=== PATIENT | female | born 1985 | race Caucasian/White ===

== ENCOUNTER 2022-05-01 19:27 | Inpatient (IN) | payer BC, OTHER ==
[~2022-05-01] VITALS: Ht 154.9 cm; Wt 68.9 kg
[2022-05-01] MEDS ORDERED: VANCOMYCIN IV 1,000 MG in IV DEXTROSE 5% 250 ML IV ONE (19:45)
[2022-05-01] MEDS ORDERED: PIPERACILLIN SODIUM/TAZOBACTAM 3.375 G in IV DEXTROSE 5% 50 ML IV ONE (19:45)
[2022-05-01] MEDS ORDERED: IV NORMAL SALINE 1000 ML BAG IV ONE (19:45)
[2022-05-01] MEDS ORDERED: PIPERACILLIN/TAZOBACTAM/D5W 50 ML IV ONE (22:07)
[2022-05-01] MEDS ORDERED: VANCOMYCIN IV 200 ML ONE (22:07)
[2022-05-01 23:59] LABS: HEMATOCRIT 53.3 % (31.2-41.9); MEAN CORPUSCULAR HEMOGLOBIN 30.3 uug (24.7-32.8); MEAN CORPUSCULAR VOLUME 90.3 fL (75.5-95.3); PLATELET COUNT (AUTO) 211 K/uL (179-408)
[2022-05-02 00:07] LABS: ALANINE AMINOTRANSFERASE 77 U/L (14-59); ALKALINE PHOSPHATASE 113 U/L (50-136); ASPARTATE AMINOTRANSFERASE 78 U/L (15-37); BILIRUBIN,DIRECT 0.4 mg/dL (0.0-0.2); BILIRUBIN,TOTAL 0.9 mg/dL (0.2-1.0); CARBON DIOXIDE 32 mmol/L (21-32); CHLORIDE 93 mmol/L (98-107); CREATININE 1.6 mg/dL (0.6-1.3); TOTAL PROTEIN, SERUM 8.8 g/dL (6.4-8.2); UREA NITROGEN, BLOOD 41 mg/dL (7-18)
[2022-05-02 00:08] LABS: GLUCOSE 332 mg/dL (74-106); POTASSIUM 2.4 mmol/L (3.5-5.1)
[2022-05-02 01:38] LABS: *BILIRUBIN,URIN 1+ (NEGATIVE); *BLOOD, URINE NEGATIVE (NEGATIVE); *CLARITY,URINE CLEAR (CLEAR); *COLOR,URINE YELLOW (YELLOW); *KETONES,URINE TRACE (NEGATIVE); LEUKOCYTE ESTERASE ,URINE TRACE (NEGATIVE); NITRITE, URINE NEGATIVE (NEGATIVE); PH,URINE 8.5 (5.0-8.0); UGLUCOSE NEGATIVE (NEGATIVE)
[2022-05-02] MEDS ORDERED: IV NS 1000 ML 1,000 ML IV ONE ×3 (02:45→12:45)
[2022-05-02] MEDS ORDERED: IV NS 1000 ML 1,000 ML IV PRN (03:00)
[2022-05-02] MEDS ORDERED: MAGNESIUM HYDROXIDE 30 ML LIQUID UDC PO PRN (03:00)
[2022-05-02] MEDS ORDERED: POTASSIUM CHLORIDE 50 ML ONE ×4 (03:06→04:55)
[2022-05-02 03:29] LABS: BACTERIA,URINE MANY /HPF (NONE SEEN); RBC,URINE 0-3 /HPF (0-3); SQUAMOUS EPITHELIAL CELL,UR FEW /HPF (NONE SEEN)
[2022-05-02] MEDS: POTASSIUM CHLORIDE 50 ML IV SCH ×6 (03:43→11:56)
[2022-05-02] MEDS ORDERED: PIPERACILLIN SODIUM/TAZOBACTAM 3.375 G in IV DEXTROSE 5% 50 ML IV SCH (06:00)
[2022-05-02] MEDS ORDERED: PIPERACILLIN/TAZOBACTAM/D5W 50 ML IV ONE ×2 (06:51→10:55)
--- NOTE | 2022-05-02 07:11 | NUR ---
PT IS IN ROOM #2B. DR MÁRQUEZ EVALUATED THE PT. REPORT WAS RECEIVED FROM SIZER MACHINE RN ZHOU. CONTINUE TO MONITOR THE PT.
--- NOTE | 2022-05-02 08:27 | NUR ---
Castillo thurman in [place] - 05/02/22 at 0830 by BERNADINE Gave pt's parents RX and d/c instructions & school note, mother verbalized understanding.
[2022-05-02] MEDS ORDERED: PANTOPRAZOLE SODIUM 40 MG VIAL IV SCH (09:00)
[2022-05-02 09:10] LABS: HEMATOCRIT 43.1 % (31.2-41.9); MEAN CORPUSCULAR HEMOGLOBIN 30.4 uug (24.7-32.8); MEAN CORPUSCULAR VOLUME 90.2 fL (75.5-95.3); PLATELET COUNT (AUTO) 130 K/uL (179-408)
[2022-05-02 09:35] LABS: CREATININE 1.5 mg/dL (0.6-1.3); PHOSPHOROUS 1.2 mg/dL (2.5-4.9)
[2022-05-02] MEDS ORDERED: ACETAMINOPHEN 325 MG TABLET ONE ×2 (10:02→18:31)
[2022-05-02] MEDS ORDERED: PANTOPRAZOLE SODIUM 40 MG VIAL ONE (10:03)
[2022-05-02 10:10] LABS: *URINE HCG, QUAL NEG (NEGATIVE)
[2022-05-02 10:14] LABS: POTASSIUM 2.3 mmol/L (3.5-5.1)
[2022-05-02] MEDS: ACETAMINOPHEN 325 MG TABLET PO PRN (10:23)
--- NOTE | 2022-05-02 10:31 | NUR ---
DR VERÓNICA Lozada EVALUATED THE PT.
[2022-05-02] MEDS ORDERED: POTASSIUM CHLORIDE 20 MEQ POWDER PACKET ONE (10:53)
[2022-05-02] MEDS ORDERED: POTASSIUM CHLORIDE 100 ML ONE (10:54)
[2022-05-02] MEDS ORDERED: HEPARIN SODIUM,PORCINE 5,000 UNITS/ML VIAL ONE (10:54)
[2022-05-02] MEDS ORDERED: VANCOMYCIN IV 200 ML ONE (10:55)
[2022-05-02] MEDS ORDERED: HEPARIN SODIUM,PORCINE 5,000 UNITS/ML VIAL SQ SCH (11:00)
[2022-05-02] MEDS ORDERED: POTASSIUM CHLORIDE 20 MEQ POWDER PACKET GT ONE (11:00)
[2022-05-02] MEDS: PIPERACILLIN SODIUM/TAZOBACTAM 3.375 G in IV DEXTROSE 5% 50 ML IV SCH ×2 (12:00→18:13)
[2022-05-02] MEDS: VANCOMYCIN IV 1,000 MG in IV DEXTROSE 5% 250 ML IV SCH (12:00)
[2022-05-02] MEDS ORDERED: NOREPINEPHRINE BITARTRATE 8 MG in IV NORMAL SALINE 242 ML IV PRN (12:45)
[2022-05-02] MEDS ORDERED: CRAN425C6 GT (14:26)
[2022-05-02] MEDS ORDERED: ZINC220T3 GT (14:26)
[2022-05-02] MEDS ORDERED: APIX2.5T GT (14:26)
[2022-05-02] MEDS ORDERED: OMEP20CA15 GT (14:26)
[2022-05-02] MEDS ORDERED: CLON0.3P TD (14:26)
[2022-05-02] MEDS ORDERED: DOCU100C36 GT (14:26)
[2022-05-02] MEDS ORDERED: LEVE100S GT (14:26)
[2022-05-02] MEDS ORDERED: AMAN50SY GT (14:26)
[2022-05-02] MEDS ORDERED: ASCO-375 GT (14:26)
[2022-05-02] MEDS ORDERED: AMIN30LI2 GT (14:26)
[2022-05-02] MEDS ORDERED: METO50TA16 GT (14:26)
[2022-05-02] MEDS ORDERED: PHEN64.8 GT (14:26)
[2022-05-02] MEDS ORDERED: NA P133E RC (14:26)
[2022-05-02] MEDS ORDERED: BROM5CAP3 GT (14:26)
[2022-05-02] MEDS ORDERED: BACL10TA GT (14:26)
[2022-05-02] MEDS ORDERED: ACET-2154 GT (14:26)
[2022-05-02] MEDS ORDERED: ARGI1POW17 GT (14:26)
[2022-05-02] MEDS ORDERED: IPRA0.2S6 NEB (14:26)
[2022-05-02] MEDS ORDERED: FLUO10CA26 GT (14:26)
[2022-05-02] MEDS ORDERED: BISA10SU61 RC (14:26)
[2022-05-02] MEDS ORDERED: TRAM50TA2 GT (14:26)
[2022-05-02] MEDS ORDERED: ACET-2605 GT (14:26)
[2022-05-02] MEDS ORDERED: MULT-213 GT (14:26)
[2022-05-02] MEDS ORDERED: ALBU2.5V7 NEB (14:26)
[2022-05-02] MEDS ORDERED: APIXABAN 2.5 MG TABLET GT SCH (17:00)
[2022-05-02] MEDS ORDERED: BROMOCRIPTINE 5 MG PO SCH (17:00)
[2022-05-02] MEDS ORDERED: AMANTADINE HCL GT SCH (17:00)
[2022-05-02] MEDS ORDERED: BROMOCRIPTINE MESYLATE 5 MG GT SCH (17:00)
[2022-05-02] MEDS ORDERED: [UNRECOGNIZED DRUG - OTHER] PO SCH (17:00)
[2022-05-02] MEDS ORDERED: SODIUM PHOSPHATE MM 15 MMOL in IV NORMAL SALINE 250 ML IV ONE (17:00)
[2022-05-02] MEDS ORDERED: levETIRAcetam 500 MG/5 ML LIQUID UDC ONE (17:14)
[2022-05-02] MEDS: PANTOPRAZOLE ORAL SUSPENSION 40 MG SUSPDR.PKT GT SCH (17:23)
[2022-05-02] MEDS: levETIRAcetam 500 MG/5 ML LIQUID UDC GT SCH (17:23)
[2022-05-02] MEDS ORDERED: ONDANSETRON 4 MG/2 ML VIAL ONE (18:32)
[2022-05-02] MEDS ORDERED: MORPHINE SULFATE 4 MG/1 ML DISP.SYRIN ONE (18:34)
--- NOTE | 2022-05-02 19:00 | NUR ---
Received report from TEDDY Patten. Pt. in bed, eyes open.
[2022-05-02] MEDS: ONDANSETRON 4 MG/2 ML VIAL IV PRN (19:25)
[2022-05-02] MEDS ORDERED: PHENOBARBITAL 32.4 MG TABLET ONE (20:18)
[2022-05-02] MEDS ORDERED: DOCUSATE SODIUM 100 MG CAPSULE PO ONE (20:18)
[2022-05-02] MEDS ORDERED: BACLOFEN 10 MG TABLET ONE (20:18)
[2022-05-02] MEDS ORDERED: PHENOBARBITAL 32.4 MG TABLET PO SCH (21:00)
[2022-05-02] MEDS ORDERED: DOCUSATE SODIUM 100 MG CAPSULE PO SCH (21:00)
[2022-05-02] MEDS: BACLOFEN 10 MG TABLET GT SCH (21:04)
--- NOTE | 2022-05-02 21:14 | NUR ---
noted 78/53, titrated from 0.2 mcg/kg/min. to 0.3mcg/kg/min. bp is now 99/52
[2022-05-02] MEDS ORDERED: NOREPINEPHRINE BITARTRATE 4 MG/4 ML VIAL IV ONE (22:23)
--- NOTE | 2022-05-02 22:28 | NUR ---
Reposition pt., noted 600 ml of urine from F/C
[2022-05-03] VITALS (40 sets, daily range): BP systolic 48–276; BP diastolic 20–109
--- NOTE | 2022-05-03 00:05 | NUR ---
[id number]--RECEIVED PT NEW ADMIT FROM ER. PT ARRIVED VIA GUERNEY. PT IS [id number] EYES AND TRACKS OCCASS. BUT DOESN'T FOLLOW SIMPLE COMMDS. PT IS CONTRACTED IN UPPER AND LOWER EXTREMETIES. SKIN IS FLUSHED PINK COLOR AND VERY WM. PT HAS TEMP OF 104F AX AND 106F RECTAL. TYLENOL AND COOLING SAIGE. DONE. PEPE NARAYANAN CONTACTED AND INFORMED-ORDERED BCX2. PT ALSO HAS TRACH TO COOL AEROSOL MIST AT 60%. STAT ABG DONE. HCO3 IS 14. ORACIO CANTU INFORMED. NO NEW ORDERS. RESPS ARE REG/SLIGHT LABORED AT TIMES WITH RR OF 32. RTX DEMAR AT BEDSIDE. PT RADHA SX WELL ALSO. ORAL CARE GIVEN. BATH AND LINEN CHANGE DONE. PT ENDORSED TO DAY SHIFT TEDDY REGALADO THAT PT NEEDS A WOUND CONSULT DUE TO STG 1 DECUB IN SACRAL AREA AND DTI OF LEFT FOOT. PT HAS RIGHT ARM ML AND RIGHT FEMORAL TLC. PT IS ON LEVOPHED AT O.1MCG. PT INITIALLY WAS 60'S TO 80'S SYST. BP GRADUALLY INC TO 90-110 SYST. PT ALSO GIVEN 1LITER NS FL. BOLUS-ORD BY ORACIO CANTU. PT HAS F/C-U/O ADEQ. 900CC OUT-GAYE/CLR.PT HAD SMALL BRN DIARRHEA STOOL X1. PT ALSO HAS GT I/P-CLAMPED. FLUSHES WELL. PT ALSO HAS BEEN IN S.TACH WITH HR UP TO 148. ORACIO CANTU INFORMED. PT'S TEMP AT 0400 IS 103F. COOLING SAIGE. CONT. PT CONT. IN GUARDED COND. PT ENDORSED TO TEDDY REGALADO. JAYSON ESPINAL
--- NOTE | 2022-05-03 00:10 | NUR ---
Endorsed and tranfsferred pt to CCU, TEDDY Arroyo taking over. Transported pt with RT. TONYS
[2022-05-03] MEDS: ACETAMINOPHEN 325 MG TABLET PO PRN ×3 (00:30→05:30)
[2022-05-03] MEDS ORDERED: IV NS 1000 ML 1,000 ML IV PRN (01:00)
[2022-05-03] MEDS ORDERED: POTASSIUM CHLORIDE 20 MEQ POWDER PACKET GT ONE (01:45)
[2022-05-03 01:53] LABS: ABG BASE EXCESS -7.6 mmol/L; ABG HCO3 14.3 mmol/L; ABG PCO2 21.1 mmHg (35.0-45.0); ABG PH 7.449 (7.350-7.450); ABG PO2 63.1 mmHg (75.0-100.0); ABG SITE RIGHT RADIAL; ABG TOTAL HEMOGLOBIN 12.8 G/dL (12.0-16.0); COHb 0.3 % (0.5-1.5); MetHb 0.4 % (0.0-1.5); O2Hb 93.5 % (94.0-97.0)
--- NOTE | 2022-05-03 03:34 | NUR ---
PATIENT ON CONT P/MIST @ 60% VIA T/PIECE; WITH ABG DONE IN CCU, SUCTION PRN, GOOD COUGH EFFORT. Humza BLAIRP Addendum: 05/03/22 at 0335 by ALTON CHA RT Amended: Links added.
[2022-05-03 05:31] LABS: HEMATOCRIT 37.1 % (31.2-41.9); MEAN CORPUSCULAR HEMOGLOBIN 30.3 uug (24.7-32.8); MEAN CORPUSCULAR VOLUME 90.2 fL (75.5-95.3); PLATELET COUNT (AUTO) 53 K/uL (179-408)
[2022-05-03] MEDS ORDERED: MAGNESIUM HYDROXIDE 30 ML LIQUID UDC GT PRN (05:46)
[2022-05-03 05:56] LABS: CREATININE 1.4 mg/dL (0.6-1.3); MAGNESIUM 1.5 mg/dL (1.8-2.4); PHOSPHOROUS 1.4 mg/dL (2.5-4.9)
[2022-05-03] MEDS: VANCOMYCIN IV 1,000 MG in IV DEXTROSE 5% 250 ML IV SCH ×2 (06:00→23:46)
[2022-05-03] MEDS: PIPERACILLIN SODIUM/TAZOBACTAM 3.375 G in IV DEXTROSE 5% 50 ML IV SCH ×3 (06:00)
[2022-05-03 06:13] LABS: POTASSIUM 2.3 mmol/L (3.5-5.1)
[2022-05-03 06:50] LABS: LYMPHOCYTES % (MANUAL) 28 % (20-40); MONOCYTES % (MANUAL) 4 % (2-10); NEUTROPHILS % (MANUAL) 68 % (42-75)
[2022-05-03] MEDS: MAGNESIUM SULFATE/D5W 100 ML IV SCH ×4 (07:45→11:30)
--- NOTE | 2022-05-03 07:45 | NUR ---
Received pt. with fever of 104.6 cooling measures will be implemented not due for tylenol yet as reported by registry nurse Dina Tylenol administered at 0400 this morning. tachycardia rate in the 130-140's.
[2022-05-03] MEDS: PROTEIN SUPPLEMENT (PROSTAT) 30 ML LIQUID PO SCH (08:00)
[2022-05-03] MEDS ORDERED: POTASSIUM PHOSPHATE MM 7.5 MMOL in IV NORMAL SALINE 97.5 ML IV ONE ×2 (08:00→13:00)
[2022-05-03] MEDS ORDERED: POTASSIUM CHLORIDE 40 MEQ in IV D5W 1000ML 1,000 ML IV PRN (08:30)
[2022-05-03] MEDS ORDERED: POTASSIUM PHOSPHATE MM 15 MMOL in IV NORMAL SALINE 250 ML IV ONE (08:30)
[2022-05-03] MEDS: BACLOFEN 10 MG TABLET GT SCH ×2 (09:00→20:22)
[2022-05-03] MEDS: MULTIVITAMINS,THERAPEUTIC TABLET GT SCH (09:00)
[2022-05-03] MEDS: ASCORBIC ACID 500 MG TABLET GT SCH (09:00)
[2022-05-03] MEDS: PANTOPRAZOLE ORAL SUSPENSION 40 MG SUSPDR.PKT GT SCH (09:00)
[2022-05-03] MEDS ORDERED: Medication Not On Formulary EA (Amino Acids/Protein Hydrolys (Pro-Stat Liquid) 30 ML) GT SCH (09:00)
[2022-05-03] MEDS: AMANTADINE HCL 100 MG CAPSULE GT SCH (09:00)
[2022-05-03] MEDS: ZINC SULFATE 220 MG CAPSULE GT SCH (09:00)
[2022-05-03] MEDS: levETIRAcetam 500 MG/5 ML LIQUID UDC GT SCH (09:00)
--- NOTE | 2022-05-03 09:00 | NUR ---
A call to attending Ramón to notified that G=t with massive leaking and pt. did not received G=t meds/
[2022-05-03] MEDS: POTASSIUM CHLORIDE 20 MEQ POWDER PACKET GT SCH ×2 (09:11→12:00)
[2022-05-03] MEDS: POTASSIUM CHLORIDE 50 ML IV SCH ×4 (09:11→12:55)
--- NOTE | 2022-05-03 10:36 | NUR ---
A call to attending to update her on pt's most current condition orders for 1 liter bolus and to change levophed drip for Neosynephrine drip. Received.
[2022-05-03] MEDS ORDERED: IV NS 1000 ML 1,000 ML IV ONE ×3 (10:45→11:30)
[2022-05-03] MEDS: PHENYLEPHRINE IV 100 MG in IV NORMAL SALINE 240 ML IV PRN ×2 (10:51→20:49)
[2022-05-03] MEDS: PANTOPRAZOLE SODIUM 40 MG VIAL IV SCH (11:30)
[2022-05-03] MEDS ORDERED: SODIUM BICARBONATE 8.4% 50 MEQ/50 ML DISP.SYRIN IV ONE ×2 (11:30→13:30)
[2022-05-03] MEDS ORDERED: SODIUM BICARBONATE 8.4% 100 MEQ in IV D5W 1000ML 1,000 ML IV PRN (12:00)
--- NOTE | 2022-05-03 12:15 | NUR ---
At this time patient placed on ventilator A/C 20, Tv 400 Peep +5 FIO2 100%.
--- NOTE | 2022-05-03 12:30 | NUR ---
Pt. not responding to to 2L NS bolus and maxed out on neosynephrine as ordered by attending orders to restart levophed at maximum dose received. Patient mottled with severe tachypnea. Attending notified and received orders to put pt. on ventilator A/C 20, tv400 Peep +5, and FIO2 100%. received. RT's at bedside.
[2022-05-03] MEDS: NOREPINEPHRINE BITARTRATE 32 MG in IV NORMAL SALINE 218 ML IV PRN (12:33)
[2022-05-03] MEDS: PROPOFOL 100 ML IV PRN ×3 (13:06→18:49)
--- NOTE | 2022-05-03 13:15 | NUR ---
Attending MS. Melgar in the unit to see and examine pt.
[2022-05-03 13:44] LABS: ABG BASE EXCESS -13.3 mmol/L; ABG HCO3 12.7 mmol/L; ABG PCO2 30.5 mmHg (35.0-45.0); ABG PH 7.239 (7.350-7.450); ABG PO2 58.9 mmHg (75.0-100.0); ABG SITE RIGHT BRACHIAL; ABG TOTAL HEMOGLOBIN 13.6 G/dL (12.0-16.0); COHb 0.1 % (0.5-1.5); MetHb 0.4 % (0.0-1.5); O2Hb 88.2 % (94.0-97.0); VENT MODE VENT - A/C; VT, ABG 400 mL
[2022-05-03] MEDS ORDERED: DIATR MEGLU/DIATRIZOATE SODIUM 30 ML BOTTLE ONE (13:52)
[2022-05-03] MEDS: MEROPENEM 1 G in IV NORMAL SALINE 100 ML IV SCH ×3 (13:52→23:46)
[2022-05-03] MEDS ORDERED: PIPERACILLIN SODIUM/TAZOBACTAM 3.375 G in IV DEXTROSE 5% 100 ML IV SCH (14:00)
[2022-05-03] MEDS ORDERED: MEROPENEM 0.5 G in IV NORMAL SALINE 50 ML IV SCH (14:00)
[2022-05-03 15:12] LABS: CREATININE 1.3 mg/dL (0.6-1.3); MAGNESIUM 3.3 mg/dL (1.8-2.4); PHOSPHOROUS 2.7 mg/dL (2.5-4.9); POTASSIUM 3.5 mmol/L (3.5-5.1); TOTAL PROTEIN, SERUM 5.4 g/dL (6.4-8.2)
--- NOTE | 2022-05-03 15:35 | NUR ---
A call from Mrs. Noah Bray requesting update from pt and requested to speak with attending. Attending Ramón Mack informed and provided with Mrs. Zamora contact information.
--- NOTE | 2022-05-03 16:18 | NUR ---
Environmental Remediation Specialist Ivone called and notified of Attendings orders. Consult social services aide to obtained updated DPOA. at this time Ivone was provided with pt's grandmother contact information Mrs. Noah Bray .
[2022-05-03] MEDS: DOCUSATE SODIUM 100 MG/10 ML LIQUID UDC GT SCH (20:21)
[2022-05-03] MEDS: PHENOBARBITAL 32.4 MG TABLET GT SCH (20:23)
[2022-05-04] VITALS (35 sets, daily range): BP systolic 42–135; BP diastolic 28–84
[2022-05-04] MEDS: PROPOFOL 100 ML IV PRN ×3 (01:07→13:26)
[2022-05-04] MEDS: ACETAMINOPHEN 325 MG TABLET GT PRN ×2 (03:51→22:28)
[2022-05-04] MEDS: NOREPINEPHRINE BITARTRATE 32 MG in IV NORMAL SALINE 218 ML IV PRN (04:01)
--- NOTE | 2022-05-04 04:07 | NUR ---
administered acetaminophen for fever (100.5F) abdominal skin is red and rash around umbilical reinforce abdominal dressing G-tube is leaking (green, bloody, brown liquid) continue to monitor her G-tube, VS signs (heart rate, temperature, blood pressure) Monitor signs and symptoms of respiratory distress Check the tracheotomy site
[2022-05-04 05:32] LABS: CREATININE 1.2 mg/dL (0.6-1.3); MAGNESIUM 2.7 mg/dL (1.8-2.4)
[2022-05-04 05:35] LABS: PHOSPHOROUS 0.9 mg/dL (2.5-4.9); POTASSIUM 2.5 mmol/L (3.5-5.1)
[2022-05-04 05:45] LABS: HEMATOCRIT 35.2 % (31.2-41.9); MEAN CORPUSCULAR HEMOGLOBIN 30.1 uug (24.7-32.8); MEAN CORPUSCULAR VOLUME 88.4 fL (75.5-95.3)
[2022-05-04 05:48] LABS: PLATELET COUNT (AUTO) 46 K/uL (179-408)
[2022-05-04] MEDS: POTASSIUM CHLORIDE 20 MEQ TAB.PRT.SR PO SCH ×2 (06:00→08:00)
[2022-05-04] MEDS: POTASSIUM CHLORIDE 50 ML IV SCH ×4 (06:46→10:17)
[2022-05-04] MEDS: MEROPENEM 1 G in IV NORMAL SALINE 100 ML IV SCH ×2 (06:48→22:29)
--- NOTE | 2022-05-04 07:30 | NUR ---
Received pt. this morning from shea [facility] as per report G-T medications were given last night despite G-t massive leaking with no improvement. Patient on monitor tech rate in the 140's150's. SBP sustained by levophed and neosynephrine. propofol at 50mcg/kg/min. remains febrile on/off. Remains on ventilator with no change in setting Portex 6 A/C 20 tv 400 FIO2 100% Peep +5. wounds remains the same no further complications. Will continue to monitor.
[2022-05-04] MEDS ORDERED: POTASSIUM PHOSPHATE MM 15 MMOL in IV NORMAL SALINE 250 ML IV ONE (08:00)
[2022-05-04] MEDS: PROTEIN SUPPLEMENT (PROSTAT) 30 ML LIQUID PO SCH (08:00)
[2022-05-04] MEDS: PHENYLEPHRINE IV 100 MG in IV NORMAL SALINE 240 ML IV PRN ×2 (08:03→16:24)
[2022-05-04] MEDS: PANTOPRAZOLE SODIUM 40 MG VIAL IV SCH (08:24)
[2022-05-04] MEDS: MUPIROCIN 2% OINT 22 GM TUBE NS SCH ×2 (08:26→22:31)
[2022-05-04 08:36] LABS: NEUTROPHILS % (MANUAL) 58 % (42-75)
[2022-05-04 08:37] LABS: EOSINOPHILS % (MANUAL) 1 % (0-8); LYMPHOCYTES % (MANUAL) 34 % (20-40); MONOCYTES % (MANUAL) 7 % (2-10)
[2022-05-04] MEDS: AMANTADINE HCL 100 MG CAPSULE GT SCH (09:00)
[2022-05-04] MEDS: MULTIVITAMINS,THERAPEUTIC TABLET GT SCH (09:00)
[2022-05-04] MEDS: ZINC SULFATE 220 MG CAPSULE GT SCH (09:00)
[2022-05-04] MEDS ORDERED: APIXABAN 2.5 MG TABLET GT SCH (09:00)
[2022-05-04] MEDS: ASCORBIC ACID 500 MG TABLET GT SCH (09:00)
[2022-05-04] MEDS: BACLOFEN 10 MG TABLET GT SCH ×3 (09:00→22:28)
--- NOTE | 2022-05-04 09:30 | NUR ---
Attending Lynn Mack in the unit to see and examine pt. report given and orders to continue with care plan received.
[2022-05-04] MEDS ORDERED: POTASSIUM PHOSPHATE MM 7.5 MMOL in IV NORMAL SALINE 97.5 ML IV ONE (10:00)
--- NOTE | 2022-05-04 10:01 | NUR ---
Pulmonary consult Dr. Adam in the unit Updated on pt's admission diagnosis and most updated condition by attending Lynn Melgar.
[2022-05-04] MEDS: ACETAMINOPHEN 650 MG SUPP.RECT RC PRN (12:11)
[2022-05-04] MEDS: VANCOMYCIN IV 1,000 MG in IV DEXTROSE 5% 250 ML IV SCH (14:03)
[2022-05-04 14:13] LABS: POTASSIUM 3.5 mmol/L (3.5-5.1)
[2022-05-04] MEDS: PHENOBARBITAL 32.4 MG TABLET GT SCH (22:27)
[2022-05-04] MEDS: DOCUSATE SODIUM 100 MG/10 ML LIQUID UDC GT SCH (22:27)
[2022-05-05] VITALS (32 sets, daily range): BP systolic 99–152; BP diastolic 43–98
[2022-05-05] MEDS: PROPOFOL 100 ML IV PRN ×3 (01:31→20:13)
--- NOTE | 2022-05-05 03:47 | NUR ---
PATIENT ON CONT REN VENT WITH TRACH PORTEX 6; IN PLACE AND SECURED, WITH CURRENT VENT SETTINGS, A/C 20, 400ML, PEEP5, FIO2 @ 100%, PT DOES BREATH RAPID AT TIMES, WITH HIGH HR 120, WITH TEMP, SUCTION BROWNISH TINGE SECRETIONS, AND SUCTION MOUTH WITH YANKAUER, NO VERBAL RESPONSE, DOES NOT FOLLOW ANY COMMANDS , NO VENT CHANGES MADE, ALL VENT ALARMS GOOD, VENT PLUGGED INTO RED WALL OUT LET , AMBU BAG AT BEDSIDE.Humza BLAIRP Addendum: 05/05/22 at 0351 by ALTON CHA RT Amended: Links added.
[2022-05-05] MEDS: VANCOMYCIN IV 1,000 MG in IV DEXTROSE 5% 250 ML IV SCH ×2 (05:00→22:25)
[2022-05-05] MEDS: MEROPENEM 1 G in IV NORMAL SALINE 100 ML IV SCH ×3 (05:00→22:28)
[2022-05-05 05:13] LABS: HEMATOCRIT 31.6 % (31.2-41.9); MEAN CORPUSCULAR HEMOGLOBIN 30.5 uug (24.7-32.8); MEAN CORPUSCULAR VOLUME 89.4 fL (75.5-95.3)
[2022-05-05 05:30] LABS: PLATELET COUNT (AUTO) 49 K/uL (179-408)
[2022-05-05 05:35] LABS: CREATININE 0.9 mg/dL (0.6-1.3); MAGNESIUM 2.2 mg/dL (1.8-2.4); PHOSPHOROUS 2.2 mg/dL (2.5-4.9); POTASSIUM 3.5 mmol/L (3.5-5.1)
[2022-05-05 05:44] LABS: BILIRUBIN,DIRECT 0.4 mg/dL (0.0-0.2); TOTAL PROTEIN, SERUM 4.8 g/dL (6.4-8.2)
--- NOTE | 2022-05-05 07:10 | NUR ---
Patient received on cont ward vent. Patient is trached with Portex 6. Trach is in place and secured via trach tie. Received on settings of AC RR 20, Vt 400, PEEP +5, 100% Fio2. Ventilator plugged in red outlets. Alarms on and audible. Ambubag bed side. PRN sxn provided. Will continue to monitor.
--- NOTE | 2022-05-05 07:20 | NUR ---
Received pt. on ventilator Portex #6, TV 400 A/C 20,FIO2 100%. Neuro-land semicomatose. eyes remain open to tracking. Hemodynamically Sinus tachycardia on neosyneprhine running at maximum in the 110-120's. G-t clumped. TLC patent Galdamez to gravity. Will continue to monitor.
[2022-05-05] MEDS: PROTEIN SUPPLEMENT (PROSTAT) 30 ML LIQUID PO SCH (08:00)
[2022-05-05] MEDS: BACLOFEN 10 MG TABLET GT SCH ×2 (08:44→22:24)
[2022-05-05] MEDS: AMANTADINE HCL 100 MG CAPSULE GT SCH (08:44)
[2022-05-05] MEDS: ASCORBIC ACID 500 MG TABLET GT SCH (08:45)
[2022-05-05] MEDS: ZINC SULFATE 220 MG CAPSULE GT SCH (08:45)
[2022-05-05] MEDS: MULTIVITAMINS,THERAPEUTIC TABLET GT SCH (08:45)
[2022-05-05] MEDS: PANTOPRAZOLE SODIUM 40 MG VIAL IV SCH (08:48)
[2022-05-05] MEDS: MUPIROCIN 2% OINT 22 GM TUBE NS SCH ×2 (08:49→21:00)
[2022-05-05 10:51] LABS: ABG BASE EXCESS -0.1 mmol/L; ABG HCO3 22.7 mmol/L; ABG PCO2 30.7 mmHg (35.0-45.0); ABG PH 7.486 (7.350-7.450); ABG PO2 69.6 mmHg (75.0-100.0); ABG SITE RIGHT BRACHIAL; ABG TOTAL HEMOGLOBIN 10.9 G/dL (12.0-16.0); COHb 0.3 % (0.5-1.5); MetHb 0.7 % (0.0-1.5); O2Hb 91.7 % (94.0-97.0); VENT MODE VENT - A/C; VT, ABG 400 mL
[2022-05-05 10:51] LABS: ABG BASE EXCESS -2.7 mmol/L; ABG HCO3 19.3 mmol/L; ABG PCO2 25.9 mmHg (35.0-45.0); ABG PO2 157.5 mmHg (75.0-100.0); ABG SITE RIGHT BRACHIAL; ABG TOTAL HEMOGLOBIN 12.3 G/dL (12.0-16.0); COHb 0.3 % (0.5-1.5); MetHb 0.4 % (0.0-1.5); O2Hb 98.1 % (94.0-97.0); VENT MODE VENT - A/C; VT, ABG 400 mL
--- NOTE | 2022-05-05 10:59 | NUR ---
Pulmonary serviced, Dr. Adam in the unit to see and examine pt. no new orders received.
[2022-05-05] MEDS ORDERED: TPN/PPN PER PHARMACY IV PRN (11:30)
--- NOTE | 2022-05-05 12:19 | NUR ---
Attending Lynn Melgar in the unit to follow up on pt. at this time she spoke with pt's father and had an extended discussion regarding care plan.
[2022-05-05] MEDS: PHENYLEPHRINE IV 100 MG in IV NORMAL SALINE 240 ML IV PRN (13:59)
[2022-05-05] MEDS ORDERED: TPN BAG #1 IV SCH ×5 (15:00)
[2022-05-05] MEDS: DEXTROSE 50% 50 ML DISP.SYRIN IV PRN (17:40)
[2022-05-05] MEDS: BLOOD SUGAR DIAGNOSTIC 1 EACH STRIP VI SCH (17:41)
--- NOTE | 2022-05-05 18:24 | NUR ---
Follow up glucose post Dextrose administration is 137mm/hg.
--- NOTE | 2022-05-05 18:25 | NUR ---
Left pt. on ventilator Portex #6, TV 400 A/C 20,FIO2 100%. Neuro-land semicomatose. For comfort pt. remains on propofol eyes remain open pt. not tracking or following commands. Hemodynamically Sinus tachycardia rate in the 120-'s 130's. off vasopressors with sbp within desire limits. G-t clumped. TLC patent Galdamez to gravity. Will continue to monitor.
--- NOTE | 2022-05-05 20:00 | NUR ---
[id number] CONT. WITH TRACH-VENT. PT RADHA WELL WITH POX OF 99-100%. PT HAS BEEN ON FIO2 OF 100%. PT OPENS EYES SPONT AND TO NOXIOUS STIMULI. PT SEEMS TO TRACK OCCASS. PT HAS BEEN IN S.TACH/NO ECTOPY. PT HAS BEEN AFEBRILE. IVS I/P VIA RIGHT FEM. TLC. PT HAS DIPRIVAN DRIP FOR SEDATION AND TPN AT 30CC/HR. PT ALSO HAS D5W AT 50CC/HR. PT ALSO HAS PIV IN RIGHT ARM-H.L. PT HAS GEN. EDEMA. PT HAS F/C-DARK/YBFBVQ-YDMA-[id number] URINE-550CC. PT ALSO HAS RECTAL T. WITH 150CC LIQ BRN STOOL. BATH AND LINEN CHANGE DONE. PT WAS ALSO TRANSPORTED TO ER(FOR ICU) WITH ACLS PROTOCOL(FROM CCU)VIA BED WITH RTX. PT RADHA WELL. PT'S FAMILY AND MD INFORMED. GEN COND HAS BEEN STABLE/GUARDED. JAYSON ESPINAL
[2022-05-05] MEDS: DOCUSATE SODIUM 100 MG/10 ML LIQUID UDC GT SCH (21:00)
[2022-05-05] MEDS: PHENOBARBITAL 32.4 MG TABLET GT SCH ×2 (21:00→22:24)
[2022-05-05] MEDS ORDERED: IV D5W 1000ML 1,000 ML IV SCH (21:00)
[2022-05-06] VITALS (22 sets, daily range): BP systolic 104–134; BP diastolic 49–61
[2022-05-06 05:35] LABS: MEAN CORPUSCULAR HEMOGLOBIN 30.8 uug (24.7-32.8); MEAN CORPUSCULAR VOLUME 90.6 fL (75.5-95.3)
[2022-05-06 05:45] LABS: CARBON DIOXIDE 27 mmol/L (21-32); CHLORIDE 116 mmol/L (98-107); CREATININE 0.7 mg/dL (0.6-1.3); GLUCOSE 165 mg/dL (74-106); MAGNESIUM 1.7 mg/dL (1.8-2.4); PHOSPHOROUS 2.3 mg/dL (2.5-4.9); POTASSIUM 3.1 mmol/L (3.5-5.1); UREA NITROGEN, BLOOD < 1 mg/dL (7-18)
[2022-05-06] MEDS: BLOOD SUGAR DIAGNOSTIC 1 EACH STRIP VI SCH ×4 (06:00→18:00)
[2022-05-06 06:08] LABS: PLATELET COUNT (AUTO) 36 K/uL (179-408)
--- NOTE | 2022-05-06 06:45 | NUR ---
This note is for NS 1L 05/01 end time 2099, and 05/02 2831 end time
[2022-05-06] MEDS: MEROPENEM 1 G in IV NORMAL SALINE 100 ML IV SCH ×3 (07:25→22:31)
[2022-05-06] MEDS: PROTEIN SUPPLEMENT (PROSTAT) 30 ML LIQUID PO SCH (08:00)
[2022-05-06] MEDS: ASCORBIC ACID 500 MG TABLET GT SCH (09:00)
[2022-05-06] MEDS: BACLOFEN 10 MG TABLET GT SCH ×2 (09:00→21:00)
[2022-05-06] MEDS: MUPIROCIN 2% OINT 22 GM TUBE NS SCH ×2 (09:00→22:34)
[2022-05-06] MEDS: ZINC SULFATE 220 MG CAPSULE GT SCH (09:00)
[2022-05-06] MEDS: AMANTADINE HCL 100 MG CAPSULE GT SCH (09:00)
[2022-05-06] MEDS: MULTIVITAMINS,THERAPEUTIC TABLET GT SCH (09:00)
[2022-05-06 09:37] LABS: ABG BASE EXCESS 0.4 mmol/L; ABG HCO3 24.6 mmol/L; ABG PCO2 38.2 mmHg (35.0-45.0); ABG PH 7.426 (7.350-7.450); ABG PO2 43.5 mmHg (75.0-100.0); ABG SITE RIGHT RADIAL; ABG TOTAL HEMOGLOBIN 12.6 G/dL (12.0-16.0); COHb 0.4 % (0.5-1.5); MetHb 0.3 % (0.0-1.5); O2Hb 78.9 % (94.0-97.0); VENT MODE VENT - A/C; VT, ABG 400 mL
[2022-05-06] MEDS ORDERED: PROPOFOL 100 ML ONE ×2 (10:28→23:16)
[2022-05-06] MEDS ORDERED: PANTOPRAZOLE SODIUM 40 MG VIAL ONE (10:28)
[2022-05-06] MEDS: PANTOPRAZOLE SODIUM 40 MG VIAL IV SCH (10:30)
[2022-05-06] MEDS: PROPOFOL 100 ML IV PRN ×2 (10:30→23:17)
[2022-05-06] MEDS: IV D5W 1000ML 1,000 ML IV SCH (10:39)
[2022-05-06] MEDS ORDERED: MAGNESIUM SULFATE/D5W 100 ML IV SCH (12:30)
--- NOTE | 2022-05-06 14:48 | NUR ---
WOUND CARE CONSULT: PT PRESENTS WITH MULTIPLE WOUNDS AND SKIN ISSUES INCLUDING REDNESS TO G TUBE SITE, DISCOLORATIONS AND SCARRING TO FEET, SACRAL DEEP TISSUE INJURY IN EVOLUTION, RT BUTTOCK DEEP TISSUE INJURY IN EVOLUTION, LEFT BUTTOCK INTACT DEEP TISSUE INJURY AND GENERALIZED EDEMA, PRESENT ON ADMISSION. PT HAS ALBA CATH AND RECTAL TUBE (SOME LEAKAGE OF LIQUID STOOL NOTED). PT IS ON FIRST STEP [facility] AIRSS MATTRESS. SURGICAL AND DPM CONSULTS CALLED TO DR BRANDT AND DR PORTILLO. RECOMMENDATIONS MADE FOR SKIN PROTECTION AND DISCUSSED WITH NURSING STAFF. IN AGREEMENT WITH PLAN OF CARE. Addendum: 05/06/22 at 1451 by RONNIE DEL ANGEL RN Amended: Links added.
[2022-05-06] MEDS ORDERED: TPN BAG #2 IV SCH ×4 (15:00)
--- NOTE | 2022-05-06 18:00 | NUR ---
0222-1184--PT CONT. WITH TRACH TO VENT. PT RADHA WELL. FIO2 DECREASED TO 60% PER DR'S ORDERS. DR. EM AND DR. VALLEJO IN TO EVAL. PT. PT HAS POX OF 96-98%. PT RADHA SX AND RTX WELL. PT CONT. WITH SEDATION WITH DIPRIVAN DRIP AT 25MCG. PT ALSO CONT. WITH TPN AT 30CC/HR AND D5W AT 50CC/HR. DR. VALLEJO WAS ALSO ABLE TO SPEAK TO PT'S GRANDPARENTS WHO WERE VISITING AT BEDSIDE. PT OPENS EYES OCCASS TO VOICE AND NOXIOUS STIMULI BUT DOESN'T FOLLOW S.COMMDS. VS WOUND-CARE TEDDY TRUJILLO IN TO EVAL AND TX PT AND ALSO TOOK PICTURES OF WOUNDS-PT HAS JULIO CESAR DTI OF BUTTOCKS AND RONNIE STATES THAT THE RIGHT BUTTOCK IS MORE SEVERE. THE SACRAL AREA HAS SM. OPENING WITH DTI. PT'S FEET ALSO HAVE DTIs. PHOTOS TAKEN BY TEDDY TRUJILLO. BATH AND LINEN CHANGE DONE. PT ALSO HAS RECTAL T.-150CC OUT-BRN LIQ STOOL. PT HAS F/C I/P WITH 500CC OUT OF DARK/CLOUDY FOUL SMELLING URINE. VS HAVE BEEN STABLE/GUARDED. PT NO LONGER ON PRESSORS. PT ALSO HAS BEEN AFEBRILE. ALSO K+LEVEL WAS 3.1 AND MG LEVEL WAS LOW-COVERAGE DONE VIA TPN PER PHARM PER DR'S ORDERS. GEN COND HAS BEEN STABLE/GUARDED. PT ENDORSED TO TEDDY TYLER RN
[2022-05-06] MEDS: DOCUSATE SODIUM 100 MG/10 ML LIQUID UDC GT SCH (20:37)
--- NOTE | 2022-05-06 20:38 | NUR ---
Leakage at peg site Unable to administer GT meds.
[2022-05-06] MEDS ORDERED: PHENOBARBITAL SODIUM 130 MG/1 ML DISP.SYRIN ONE (22:02)
[2022-05-06] MEDS: PHENOBARBITAL SODIUM 130 MG/1 ML DISP.SYRIN IV SCH (22:30)
[2022-05-06] MEDS ORDERED: MUPIROCIN 2% OINT 22 GM TUBE ONE (22:33)
[2022-05-07] VITALS (25 sets, daily range): BP systolic 104–136; BP diastolic 47–71
--- NOTE | 2022-05-07 00:33 | NUR ---
G Tube leaking at site Unable to flush Addendum: 05/07/22 at 0034 by [facility]ISTRY [id number] RN Amended: Links added.
[2022-05-07] MEDS: VANCOMYCIN IV 1,000 MG in IV DEXTROSE 5% 250 ML IV SCH ×2 (00:37→17:50)
[2022-05-07] MEDS: BLOOD SUGAR DIAGNOSTIC 1 EACH STRIP VI SCH ×4 (00:42→18:00)
[2022-05-07 05:03] LABS: HEMATOCRIT 22.6 % (31.2-41.9); MEAN CORPUSCULAR HEMOGLOBIN 30.6 uug (24.7-32.8); MEAN CORPUSCULAR VOLUME 91.4 fL (75.5-95.3); PLATELET COUNT (AUTO) 50 K/uL (179-408)
[2022-05-07 05:06] LABS: CREATININE 0.7 mg/dL (0.6-1.3); MAGNESIUM 1.7 mg/dL (1.8-2.4); PHOSPHOROUS 2.4 mg/dL (2.5-4.9)
[2022-05-07 05:16] LABS: POTASSIUM 2.6 mmol/L (3.5-5.1)
[2022-05-07] MEDS: IV D5W 1000ML 1,000 ML IV SCH (06:00)
[2022-05-07] MEDS: MEROPENEM 1 G in IV NORMAL SALINE 100 ML IV SCH ×3 (06:01→22:15)
[2022-05-07] MEDS ORDERED: MAGNESIUM SULFATE/D5W 100 ML ONE ×2 (07:00→09:43)
[2022-05-07] MEDS: MAGNESIUM SULFATE/D5W 100 ML IV SCH ×2 (07:05→09:48)
--- NOTE | 2022-05-07 07:46 | NUR ---
Pt stable no changes continue care.
[2022-05-07] MEDS ORDERED: POTASSIUM PHOSPHATE MM 15 MMOL in IV NORMAL SALINE 250 ML IV ONE ×2 (08:00→15:00)
[2022-05-07] MEDS: PANTOPRAZOLE SODIUM 40 MG VIAL IV SCH (09:00)
[2022-05-07] MEDS: PROTEIN SUPPLEMENT (PROSTAT) 30 ML LIQUID PO SCH (09:00)
[2022-05-07] MEDS: ZINC SULFATE 220 MG CAPSULE GT SCH (09:00)
[2022-05-07] MEDS: MULTIVITAMINS,THERAPEUTIC TABLET GT SCH (09:00)
[2022-05-07] MEDS ORDERED: ASCORBIC ACID 500 MG TABLET ONE (09:05)
[2022-05-07] MEDS: MUPIROCIN 2% OINT 22 GM TUBE NS SCH ×2 (09:41→21:00)
[2022-05-07] MEDS ORDERED: BACLOFEN 10 MG TABLET ONE (09:43)
[2022-05-07] MEDS: BACLOFEN 10 MG TABLET GT SCH ×3 (09:44→22:16)
[2022-05-07] MEDS: AMANTADINE HCL 100 MG CAPSULE GT SCH (09:45)
[2022-05-07] MEDS: ASCORBIC ACID 500 MG TABLET GT SCH (09:45)
[2022-05-07] MEDS ORDERED: PANTOPRAZOLE SODIUM 40 MG VIAL ONE (09:54)
[2022-05-07] MEDS ORDERED: PROPOFOL 100 ML ONE ×2 (10:01→16:22)
[2022-05-07] MEDS: PROPOFOL 100 ML IV PRN ×2 (10:03→23:06)
[2022-05-07 11:14] LABS: ABG BASE EXCESS 0.2 mmol/L; ABG HCO3 23.1 mmol/L; ABG PCO2 31.5 mmHg (35.0-45.0); ABG PH 7.484 (7.350-7.450); ABG PO2 105.1 mmHg (75.0-100.0); ABG SITE RIGHT RADIAL; ABG TOTAL HEMOGLOBIN 10.4 G/dL (12.0-16.0); COHb 0.3 % (0.5-1.5); MetHb 0.3 % (0.0-1.5); O2Hb 97.1 % (94.0-97.0); VENT MODE VENT - A/C20; VT, ABG 400 mL
--- NOTE | 2022-05-07 14:00 | NUR ---
visited by grandparents, sang some songs she liked. awakenned, open eyes and noted movements R arm.
[2022-05-07] MEDS ORDERED: TPN BAG #3 IV SCH ×2 (15:00)
--- NOTE | 2022-05-07 17:00 | NUR ---
Father called and wanted to discuss plans as soon as she'll get off drips. Advised to talk to dependency case manager. Called jina and gave the fathers telephone. Promised he will follow up.
[2022-05-07] MEDS ORDERED: VANCOMYCIN IV 200 ML ONE (17:49)
--- NOTE | 2022-05-07 18:00 | NUR ---
visited by MD''s, new orders. Vital signs has been pretty steady, still guarded,has no fever anymore.
[2022-05-07] MEDS: INSULIN REGULAR, HUMAN 300 UNIT/3 ML VIAL SQ PRN (19:04)
[2022-05-07] MEDS: THERAHONEY GEL 1.5 OZ TUBE TOP SCH (20:00)
[2022-05-07] MEDS: DOCUSATE SODIUM 100 MG/10 ML LIQUID UDC GT SCH (21:00)
[2022-05-07] MEDS ORDERED: PHENOBARBITAL SODIUM 130 MG/1 ML DISP.SYRIN ONE (21:54)
[2022-05-07] MEDS: PHENOBARBITAL SODIUM 130 MG/1 ML DISP.SYRIN IV SCH (22:16)
[2022-05-08] VITALS (24 sets, daily range): BP systolic 99–130; BP diastolic 52–69
[2022-05-08] MEDS: INSULIN REGULAR, HUMAN 300 UNIT/3 ML VIAL SQ PRN (01:28)
[2022-05-08] MEDS: IV D5W 1000ML 1,000 ML IV SCH (02:00)
[2022-05-08 05:05] LABS: HEMATOCRIT 23.4 % (31.2-41.9); MEAN CORPUSCULAR HEMOGLOBIN 30.5 uug (24.7-32.8); MEAN CORPUSCULAR VOLUME 91.9 fL (75.5-95.3); PLATELET COUNT (AUTO) 102 K/uL (179-408)
--- NOTE | 2022-05-08 05:09 | NUR ---
PATIENT ON CONT REN VENT WITH PORTEX [address] AND SECURED, WITH SAME CURRENT VENT SETTINGS; A/C 20 , VT 400ML, PEEP5, FIO2 @ 50%, PT TENDS TO BREATH VERY RAPID AT TIMES, 35-42 RR, SUCTIONED LIGHT PINKISH TINGE SECRETIONS, CHECK CUFF, CHANGE HME, PT WITH EYES OPEN, NO VERBAL RESPONSE, ALL VENT ALARMS GOOD, ABG AT 0800. D STARLA BLAIRP Addendum: 05/08/22 at 0512 by ALTON CHA RT Amended: Links added.
[2022-05-08] MEDS: DEXTROSE 50% 50 ML DISP.SYRIN IV PRN (05:11)
[2022-05-08 05:18] LABS: CREATININE 0.7 mg/dL (0.6-1.3); MAGNESIUM 2.2 mg/dL (1.8-2.4); PHOSPHOROUS 2.9 mg/dL (2.5-4.9); POTASSIUM 3.1 mmol/L (3.5-5.1)
[2022-05-08] MEDS: BLOOD SUGAR DIAGNOSTIC 1 EACH STRIP VI SCH ×4 (06:00→17:42)
--- NOTE | 2022-05-08 06:00 | NUR ---
--PT CONT WITH TRACH TO VENT WELL WITH POX OF 96-98%. PT HAS MOD AMT OF SPUT. HOB UP>30 DEGREES. PT HAS BEEN IN S.TACH. VS HAVE STABLE. PT HAS BEEN AFEBRILE. IV I/P VIA RIGHT GROIN FEMORAL. PT ALSO HAS ML I/P VIA RIGHT ARM. PT HAS BEEN ON DIPRIVAN DRIP FOR SEDATION. PT ALSO HAS TPN AT 30CC/HR AND D5W AT 50CC/HR. PT HAS F/C I/P WITH 1650CC MED GAYE/CLOUDY URINE-SLIGHTLY CLEARER. PT HAS RECTAL T. ALSO WITH 100CC OF LIQ BRN STOOL. PT HAS DECUB ON RIGHT BUTTOCK-UNSTAGEBLE AND DTI ON LEFT BUTTOCK. PT ALSO HAS SACRAL DECUB STG1. DRSGS APPLIED. BOTH FEET HAVE SM DTIs WITH SM FOAM PAD INTACT. AM LABS DONE. BATH AND LINEN CHANGE DONE. PT ENDORSED TO TEDDY DOLAN. GEN. COND. HAS BEEN STABLE/GUARDED. JAYSON ESPINAL
[2022-05-08] MEDS: MEROPENEM 1 G in IV NORMAL SALINE 100 ML IV SCH ×3 (06:06→21:44)
[2022-05-08 07:50] LABS: ABG BASE EXCESS -1.3 mmol/L; ABG HCO3 22.7 mmol/L; ABG PO2 103.1 mmHg (75.0-100.0); ABG SITE LEFT BRACHIAL; ABG TOTAL HEMOGLOBIN 9.2 G/dL (12.0-16.0); COHb 0.3 % (0.5-1.5); MetHb 0.1 % (0.0-1.5); VENT MODE VENT - A/C; VT, ABG 400 mL
[2022-05-08] MEDS: PROTEIN SUPPLEMENT (PROSTAT) 30 ML LIQUID PO SCH (08:00)
[2022-05-08] MEDS: ZINC SULFATE 220 MG CAPSULE GT SCH (09:00)
[2022-05-08] MEDS: AMANTADINE HCL 100 MG CAPSULE GT SCH (09:00)
[2022-05-08] MEDS: MULTIVITAMINS,THERAPEUTIC TABLET GT SCH (09:00)
[2022-05-08] MEDS: BACLOFEN 10 MG TABLET GT SCH ×2 (09:00→21:00)
[2022-05-08] MEDS: ASCORBIC ACID 500 MG TABLET GT SCH (09:00)
[2022-05-08] MEDS ORDERED: PANTOPRAZOLE SODIUM 40 MG VIAL ONE (09:08)
[2022-05-08] MEDS ORDERED: PROPOFOL 100 ML ONE ×2 (09:09→21:39)
[2022-05-08] MEDS: PANTOPRAZOLE SODIUM 40 MG VIAL IV SCH (09:10)
[2022-05-08] MEDS: PROPOFOL 100 ML IV PRN ×2 (09:10→21:58)
[2022-05-08] MEDS: MUPIROCIN 2% OINT 22 GM TUBE NS SCH ×2 (09:13→21:46)
[2022-05-08] MEDS: THERAHONEY GEL 1.5 OZ TUBE TOP SCH (09:14)
[2022-05-08] MEDS ORDERED: TPN BAG#4 IV SCH ×6 (12:00)
[2022-05-08] MEDS: VANCOMYCIN IV 750 MG in IV DEXTROSE 5% 250 ML IV SCH (12:17)
[2022-05-08] MEDS ORDERED: MEROPENEM 1GM/NS 100ML IVPB **ER PYXIS ONLY IV ONE (13:27)
--- NOTE | 2022-05-08 18:54 | NUR ---
Dad telephoned updated on status.
[2022-05-08] MEDS: DOCUSATE SODIUM 100 MG/10 ML LIQUID UDC GT SCH (21:00)
[2022-05-08] MEDS ORDERED: PHENOBARBITAL SODIUM 130 MG/1 ML DISP.SYRIN ONE (21:37)
[2022-05-08] MEDS: PHENOBARBITAL SODIUM 130 MG/1 ML DISP.SYRIN IV SCH (21:43)
[2022-05-09] VITALS (23 sets, daily range): BP systolic 102–151; BP diastolic 56–79
[2022-05-09 05:02] LABS: HEMATOCRIT 21.6 % (31.2-41.9); MEAN CORPUSCULAR HEMOGLOBIN 30.6 uug (24.7-32.8); MEAN CORPUSCULAR VOLUME 91.5 fL (75.5-95.3); PLATELET COUNT (AUTO) 151 K/uL (179-408)
[2022-05-09 05:13] LABS: CREATININE 0.7 mg/dL (0.6-1.3); MAGNESIUM 1.9 mg/dL (1.8-2.4); PHOSPHOROUS 2.3 mg/dL (2.5-4.9); POTASSIUM 3.1 mmol/L (3.5-5.1)
[2022-05-09 05:53] LABS: LYMPHOCYTES % (MANUAL) 23 % (20-40); MONOCYTES % (MANUAL) 5 % (2-10); NEUTROPHILS % (MANUAL) 72 % (42-75)
[2022-05-09] MEDS: MEROPENEM 1 G in IV NORMAL SALINE 100 ML IV SCH ×3 (06:22→22:10)
[2022-05-09] MEDS: BLOOD SUGAR DIAGNOSTIC 1 EACH STRIP VI SCH ×4 (06:23→18:00)
[2022-05-09] MEDS: PROTEIN SUPPLEMENT (PROSTAT) 30 ML LIQUID PO SCH (08:00)
[2022-05-09] MEDS ORDERED: PANTOPRAZOLE SODIUM 40 MG VIAL ONE (08:56)
[2022-05-09] MEDS ORDERED: PROPOFOL 100 ML ONE ×2 (08:59→22:07)
[2022-05-09] MEDS: BACLOFEN 10 MG TABLET GT SCH ×2 (09:00→20:56)
[2022-05-09] MEDS ORDERED: POTASSIUM PHOSPHATE MM 15 MMOL in IV NORMAL SALINE 250 ML IV ONE (09:00)
[2022-05-09] MEDS: AMANTADINE HCL 100 MG CAPSULE GT SCH (09:00)
[2022-05-09] MEDS: ZINC SULFATE 220 MG CAPSULE GT SCH (09:00)
[2022-05-09] MEDS: ASCORBIC ACID 500 MG TABLET GT SCH (09:00)
[2022-05-09] MEDS: MULTIVITAMINS,THERAPEUTIC TABLET GT SCH (09:00)
[2022-05-09] MEDS: PANTOPRAZOLE SODIUM 40 MG VIAL IV SCH (09:25)
[2022-05-09] MEDS: PROPOFOL 100 ML IV PRN ×2 (09:25→22:11)
[2022-05-09] MEDS: MUPIROCIN 2% OINT 22 GM TUBE NS SCH ×2 (09:28→20:55)
[2022-05-09] MEDS: THERAHONEY GEL 1.5 OZ TUBE TOP SCH (09:29)
--- NOTE | 2022-05-09 11:18 | NUR ---
Grandparents at bedside updated on status no changes. Continues on IV antibiotics treatment tMAX ORAL 99.6.
[2022-05-09] MEDS ORDERED: TPN BAG #5 IV SCH ×4 (12:00)
[2022-05-09] MEDS: VANCOMYCIN IV 750 MG in IV DEXTROSE 5% 250 ML IV SCH ×3 (12:03)
[2022-05-09] MEDS ORDERED: FUROSEMIDE 20 MG/2 ML VIAL IV ONE (13:45)
[2022-05-09] MEDS ORDERED: FUROSEMIDE 20 MG/2 ML VIAL ONE (16:01)
[2022-05-09] MEDS ORDERED: ACETAMINOPHEN 650 MG SUPP.RECT RC ONE (17:10)
[2022-05-09] MEDS: ACETAMINOPHEN 650 MG SUPP.RECT RC PRN (17:12)
[2022-05-09] MEDS ORDERED: PHENOBARBITAL SODIUM 130 MG/1 ML DISP.SYRIN ONE (19:43)
[2022-05-09] MEDS: PHENOBARBITAL SODIUM 130 MG/1 ML DISP.SYRIN IV SCH (20:54)
[2022-05-09] MEDS: DOCUSATE SODIUM 100 MG/10 ML LIQUID UDC GT SCH (20:56)
[2022-05-10] VITALS (24 sets, daily range): BP systolic 118–161; BP diastolic 57–78
[2022-05-10 05:36] LABS: HEMATOCRIT 21.5 % (31.2-41.9); MEAN CORPUSCULAR HEMOGLOBIN 31.1 uug (24.7-32.8); MEAN CORPUSCULAR VOLUME 91.9 fL (75.5-95.3); PLATELET COUNT (AUTO) 155 K/uL (179-408)
[2022-05-10 05:52] LABS: CREATININE 0.7 mg/dL (0.6-1.3); MAGNESIUM 1.9 mg/dL (1.8-2.4); PHOSPHOROUS 2.6 mg/dL (2.5-4.9); POTASSIUM 3.4 mmol/L (3.5-5.1)
[2022-05-10] MEDS: BLOOD SUGAR DIAGNOSTIC 1 EACH STRIP VI SCH ×3 (06:31→12:08)
[2022-05-10] MEDS: MEROPENEM 1 G in IV NORMAL SALINE 100 ML IV SCH ×3 (06:31→21:36)
[2022-05-10] MEDS: PROTEIN SUPPLEMENT (PROSTAT) 30 ML LIQUID PO SCH (08:00)
[2022-05-10] MEDS: ASCORBIC ACID 500 MG TABLET GT SCH (09:00)
[2022-05-10] MEDS: MULTIVITAMINS,THERAPEUTIC TABLET GT SCH (09:00)
[2022-05-10] MEDS: BACLOFEN 10 MG TABLET GT SCH ×2 (09:00→21:00)
[2022-05-10] MEDS: ZINC SULFATE 220 MG CAPSULE GT SCH (09:00)
[2022-05-10] MEDS: AMANTADINE HCL 100 MG CAPSULE GT SCH (09:00)
[2022-05-10] MEDS ORDERED: PANTOPRAZOLE SODIUM 40 MG VIAL ONE (09:11)
[2022-05-10] MEDS: MUPIROCIN 2% OINT 22 GM TUBE NS SCH ×2 (09:24→21:42)
[2022-05-10] MEDS: PANTOPRAZOLE SODIUM 40 MG VIAL IV SCH (09:24)
[2022-05-10] MEDS: THERAHONEY GEL 1.5 OZ TUBE TOP SCH (09:25)
[2022-05-10] MEDS ORDERED: NOREPINEPHRINE BITARTRATE 8 MG in IV NORMAL SALINE 242 ML IV PRN (09:30)
[2022-05-10] MEDS ORDERED: PROPOFOL 100 ML ONE ×2 (11:40→22:34)
[2022-05-10] MEDS: PROPOFOL 100 ML IV PRN ×2 (11:45→23:30)
[2022-05-10] MEDS ORDERED: TPN BAG#6 IV SCH ×4 (12:00)
[2022-05-10] MEDS: VANCOMYCIN IV 750 MG in IV DEXTROSE 5% 250 ML IV SCH ×3 (14:03)
[2022-05-10] MEDS: DOCUSATE SODIUM 100 MG/10 ML LIQUID UDC GT SCH (21:00)
[2022-05-10] MEDS ORDERED: PHENOBARBITAL SODIUM 130 MG/1 ML DISP.SYRIN ONE (21:40)
[2022-05-10] MEDS: PHENOBARBITAL SODIUM 130 MG/1 ML DISP.SYRIN IV SCH (21:41)
[2022-05-11] VITALS (24 sets, daily range): BP systolic 112–153; BP diastolic 54–77
[2022-05-11] MEDS: VANCOMYCIN IV 750 MG in IV DEXTROSE 5% 250 ML IV SCH ×2 (03:38→18:22)
[2022-05-11] MEDS: MEROPENEM 1 G in IV NORMAL SALINE 100 ML IV SCH ×3 (05:20→22:30)
[2022-05-11 05:35] LABS: HEMATOCRIT 23.9 % (31.2-41.9); MEAN CORPUSCULAR HEMOGLOBIN 30.7 uug (24.7-32.8); MEAN CORPUSCULAR VOLUME 90.7 fL (75.5-95.3); PLATELET COUNT (AUTO) 233 K/uL (179-408)
[2022-05-11 05:47] LABS: CREATININE 0.6 mg/dL (0.6-1.3); MAGNESIUM 1.9 mg/dL (1.8-2.4); PHOSPHOROUS 3.5 mg/dL (2.5-4.9)
[2022-05-11] MEDS: BLOOD SUGAR DIAGNOSTIC 1 EACH STRIP VI SCH ×4 (06:00→18:36)
[2022-05-11] MEDS: BACLOFEN 10 MG TABLET GT SCH ×2 (07:03→21:00)
[2022-05-11] MEDS: PROTEIN SUPPLEMENT (PROSTAT) 30 ML LIQUID PO SCH (07:03)
[2022-05-11] MEDS: MULTIVITAMINS,THERAPEUTIC TABLET GT SCH (07:04)
[2022-05-11] MEDS: AMANTADINE HCL 100 MG CAPSULE GT SCH (07:04)
[2022-05-11] MEDS: ZINC SULFATE 220 MG CAPSULE GT SCH (07:04)
[2022-05-11] MEDS: ASCORBIC ACID 500 MG TABLET GT SCH (07:04)
[2022-05-11] MEDS: PROPOFOL 100 ML IV PRN ×2 (07:54→16:49)
[2022-05-11] MEDS ORDERED: PANTOPRAZOLE SODIUM 40 MG VIAL ONE (08:21)
[2022-05-11] MEDS: PANTOPRAZOLE SODIUM 40 MG VIAL IV SCH (08:22)
[2022-05-11] MEDS: THERAHONEY GEL 1.5 OZ TUBE TOP SCH (08:24)
[2022-05-11] MEDS ORDERED: TPN BAG #7 IV SCH ×5 (12:00)
[2022-05-11] MEDS: PHENOBARBITAL SODIUM 130 MG/1 ML DISP.SYRIN IV SCH (21:00)
[2022-05-11] MEDS: DOCUSATE SODIUM 100 MG/10 ML LIQUID UDC GT SCH (21:00)
[2022-05-11] MEDS: ACETAMINOPHEN 650 MG SUPP.RECT RC PRN (23:33)
[2022-05-12] VITALS (22 sets, daily range): BP systolic 103–136; BP diastolic 56–72
[2022-05-12] MEDS: INSULIN REGULAR, HUMAN 300 UNIT/3 ML VIAL SQ PRN
[2022-05-12] MEDS: PROPOFOL 100 ML IV PRN ×2 (04:05→16:12)
[2022-05-12 05:16] LABS: HEMATOCRIT 23.7 % (31.2-41.9); MEAN CORPUSCULAR HEMOGLOBIN 30.2 uug (24.7-32.8); MEAN CORPUSCULAR VOLUME 90.9 fL (75.5-95.3); PLATELET COUNT (AUTO) 282 K/uL (179-408)
[2022-05-12] MEDS: BLOOD SUGAR DIAGNOSTIC 1 EACH STRIP VI SCH ×4 (06:00→18:05)
--- NOTE | 2022-05-12 06:00 | NUR ---
--PT CONT. WITH STABLE VS EXCEPT PT HAD TEMP OF 100F(0). TYLENOL AND COOLING SAIGE GIVEN. PT CONT. IN S.TACH-SR. PT OPENS EYES TO HER NAME AND NOXIUS STIMULI. PT HAS TRACH TO VENT. PT RADHA WELL WITH POX OF 99-100%. PT RADHA RTX AND SX WELL-SM AMT OF SPUT. IVS I/P VIA R/L ARMS AND RIGHT FEMORAL TLC. PT CONT WITH TPN AT 55CC/HR AND DIPRIVAN FOR SEDATION. PT HAS GT INTACT AND CLAMPED-CONT. TO LEAK. IS AWARE. ABD IS VERY ROUND AND DISTENDED. IS AWARE. F/C I/P-U/O IS 2L GAYE/SL. CLOUDY. AM LABS DONE. PT ENDORSED TO TEDDY DOLAN. GEN. COND HAS BEEN STABLE/GUARDED. JAYSON ESPINAL
[2022-05-12 07:49] LABS: CARBON DIOXIDE 28 mmol/L (21-32); CHLORIDE 107 mmol/L (98-107); CREATININE 0.5 mg/dL (0.6-1.3); GLUCOSE 119 mg/dL (74-106); MAGNESIUM 2.4 mg/dL (1.8-2.4); UREA NITROGEN, BLOOD 14 mg/dL (7-18); VANCOMYCIN,TROUGH 21.3 ug/mL (12.0-20.0)
[2022-05-12] MEDS: VANCOMYCIN IV 750 MG in IV DEXTROSE 5% 250 ML IV SCH (07:59)
[2022-05-12] MEDS: PROTEIN SUPPLEMENT (PROSTAT) 30 ML LIQUID PO SCH (08:00)
[2022-05-12] MEDS: AMANTADINE HCL 100 MG CAPSULE GT SCH (08:00)
[2022-05-12] MEDS: BACLOFEN 10 MG TABLET GT SCH ×2 (08:00→21:00)
[2022-05-12] MEDS: ZINC SULFATE 220 MG CAPSULE GT SCH (08:01)
[2022-05-12] MEDS: MULTIVITAMINS,THERAPEUTIC TABLET GT SCH (08:01)
[2022-05-12] MEDS: ASCORBIC ACID 500 MG TABLET GT SCH (08:01)
--- NOTE | 2022-05-12 08:34 | NUR ---
Pharmacy called hold vancomycin dose this am trouph 21
[2022-05-12] MEDS ORDERED: INSULIN REGULAR, HUMAN 300 UNIT/3 ML VIAL IV ONE (08:45)
[2022-05-12] MEDS ORDERED: DEXTROSE 50% 50 ML DISP.SYRIN IV ONE (08:45)
--- NOTE | 2022-05-12 08:57 | NUR ---
Late entry 0810 Discontinued current TPN bag per pharmacy awaiting new bag of TPN
[2022-05-12] MEDS ORDERED: SODIUM BICARBONATE 8.4% 50 MEQ/50 ML DISP.SYRIN IV ONE (09:00)
[2022-05-12] MEDS ORDERED: TPN BAG #8 IV SCH ×5 (09:00)
[2022-05-12] MEDS: PANTOPRAZOLE SODIUM 40 MG VIAL IV SCH (09:22)
[2022-05-12] MEDS: THERAHONEY GEL 1.5 OZ TUBE TOP SCH (09:24)
--- NOTE | 2022-05-12 10:36 | NUR ---
Reassessment of D50 given for K+ see am labs and not for blood sugar.
--- NOTE | 2022-05-12 11:00 | NUR ---
Dr. Osorio present new orders received for g tube site care and topical medication see aug.
[2022-05-12] MEDS: KETOCONAZOLE 2% CREAM 30 GM TUBE TP SCH (12:47)
[2022-05-12] MEDS: MEROPENEM 1 G in IV NORMAL SALINE 100 ML IV SCH ×2 (14:48→22:40)
--- NOTE | 2022-05-12 16:50 | NUR ---
Tracheostomy care completed by RT tolerated well. Full bed bath, linen and all dressings changed. Turned and repositioned every 2 hours.
[2022-05-12] MEDS ORDERED: DEXTROSE 50% 50 ML DISP.SYRIN IV PRN (17:37)
[2022-05-12] MEDS ORDERED: VANCOMYCIN IV 750 MG in IV DEXTROSE 5% 250 ML IV SCH (18:00)
[2022-05-12] MEDS: DOCUSATE SODIUM 100 MG/10 ML LIQUID UDC GT SCH (21:00)
[2022-05-12] MEDS: PHENOBARBITAL SODIUM 130 MG/1 ML DISP.SYRIN IV SCH (21:13)
[2022-05-13] VITALS (24 sets, daily range): BP systolic 108–147; BP diastolic 58–91
[2022-05-13] MEDS: PROPOFOL 100 ML IV PRN ×2 (00:46→18:48)
[2022-05-13] MEDS: BLOOD SUGAR DIAGNOSTIC 1 EACH STRIP VI SCH ×4 (00:54→17:35)
[2022-05-13 05:03] LABS: HEMATOCRIT 29.7 % (31.2-41.9); MEAN CORPUSCULAR HEMOGLOBIN 30.1 uug (24.7-32.8); MEAN CORPUSCULAR VOLUME 91.9 fL (75.5-95.3); PLATELET COUNT (AUTO) 315 K/uL (179-408)
[2022-05-13 05:17] LABS: CARBON DIOXIDE 27 mmol/L (21-32); CHLORIDE 103 mmol/L (98-107); CREATININE 0.5 mg/dL (0.6-1.3); GLUCOSE 121 mg/dL (74-106); MAGNESIUM 2.1 mg/dL (1.8-2.4); PHOSPHOROUS 3.1 mg/dL (2.5-4.9); POTASSIUM 4.8 mmol/L (3.5-5.1); UREA NITROGEN, BLOOD 17 mg/dL (7-18)
[2022-05-13] MEDS: MEROPENEM 1 G in IV NORMAL SALINE 100 ML IV SCH (06:00)
[2022-05-13 06:07] LABS: ABG BASE EXCESS -0.5 mmol/L; ABG HCO3 22.1 mmol/L; ABG PCO2 29.2 mmHg (35.0-45.0); ABG PH 7.497 (7.350-7.450); ABG PO2 306.7 mmHg (75.0-100.0); ABG SITE LEFT RADIAL; ABG TOTAL HEMOGLOBIN 9.8 G/dL (12.0-16.0); COHb 0.3 % (0.5-1.5); MetHb 0.3 % (0.0-1.5); O2Hb 98.8 % (94.0-97.0); VENT MODE VENT - A/C; VT, ABG 400 mL
--- NOTE | 2022-05-13 06:23 | NUR ---
picc line dressing changed. patient was 100.1F beginning of the shift and at the end of the shift 98 F. HR was brought down to 90- low 100s.
--- NOTE | 2022-05-13 07:20 | NUR ---
Received pt. on A-fib uncontrolled rate of 100-120's. sbp within desired limits off levophed since 05/12/22.1000. Afebrile. on 4liters oxygen via NC saturation above 95%. no tachypnea or sob noted or reported. Patient denies any pain or discomfort at this time. Galdamez to gravity clear hector output. skin issues unresolved pt. will continue to monitor. Addendum: 05/13/22 at 0800 by FABRICIO GOODMAN RN the above note was intended for another patient. User error.
[2022-05-13] MEDS: PROTEIN SUPPLEMENT (PROSTAT) 30 ML LIQUID PO SCH (07:43)
[2022-05-13] MEDS: AMANTADINE HCL 100 MG CAPSULE GT SCH (07:45)
[2022-05-13] MEDS: BACLOFEN 10 MG TABLET GT SCH ×2 (07:45→21:00)
[2022-05-13] MEDS: ZINC SULFATE 220 MG CAPSULE GT SCH (07:46)
[2022-05-13] MEDS: ASCORBIC ACID 500 MG TABLET GT SCH (07:46)
[2022-05-13] MEDS: MULTIVITAMINS,THERAPEUTIC TABLET GT SCH (07:46)
[2022-05-13] MEDS: THERAHONEY GEL 1.5 OZ TUBE TOP SCH (07:52)
[2022-05-13] MEDS: PANTOPRAZOLE SODIUM 40 MG VIAL IV SCH (07:52)
[2022-05-13] MEDS: KETOCONAZOLE 2% CREAM 30 GM TUBE TP SCH (07:53)
[2022-05-13] MEDS ORDERED: TPN BAG #9 IV SCH ×3 (09:00)
[2022-05-13] MEDS: ENOXAPARIN SODIUM 40 MG/0.4 ML DISP.SYRIN SQ SCH (10:08)
[2022-05-13] MEDS: SODIUM HYPOCHLORITE 0.125% (QUARTER STRENGTH) 473 ML BOTTLE TP SCH (16:44)
[2022-05-13] MEDS: DOCUSATE SODIUM 100 MG/10 ML LIQUID UDC GT SCH (21:00)
[2022-05-13] MEDS: PHENOBARBITAL SODIUM 130 MG/1 ML DISP.SYRIN IV SCH (21:56)
[2022-05-14] VITALS (24 sets, daily range): BP systolic 117–138; BP diastolic 63–82
[2022-05-14] MEDS: PROPOFOL 100 ML IV PRN ×2 (00:57→20:47)
[2022-05-14 05:09] LABS: HEMATOCRIT 23.5 % (31.2-41.9); MEAN CORPUSCULAR HEMOGLOBIN 31.1 uug (24.7-32.8); MEAN CORPUSCULAR VOLUME 93.1 fL (75.5-95.3); PLATELET COUNT (AUTO) 356 K/uL (179-408)
[2022-05-14 05:41] LABS: BILIRUBIN,TOTAL 0.4 mg/dL (0.2-1.0); CREATININE 0.6 mg/dL (0.6-1.3); MAGNESIUM 1.6 mg/dL (1.8-2.4); PHOSPHOROUS 3.7 mg/dL (2.5-4.9); POTASSIUM 3.2 mmol/L (3.5-5.1); TOTAL PROTEIN, SERUM 6.1 g/dL (6.4-8.2)
[2022-05-14 08:14] LABS: ABG BASE EXCESS 0.2 mmol/L; ABG HCO3 24.2 mmol/L; ABG PCO2 36.4 mmHg (35.0-45.0); ABG PH 7.441 (7.350-7.450); ABG PO2 120.9 mmHg (75.0-100.0); ABG SITE RIGHT BRACHIAL; COHb 0.3 % (0.5-1.5); MetHb 0.2 % (0.0-1.5); O2Hb 97.6 % (94.0-97.0); VENT MODE VENT - A/C; VT, ABG 400 mL
[2022-05-14] MEDS ORDERED: MAGNESIUM SULFATE/D5W 100 ML IV SCH (08:15)
[2022-05-14] MEDS ORDERED: POTASSIUM CHLORIDE 50 ML IV SCH (08:15)
[2022-05-14] MEDS: ENOXAPARIN SODIUM 40 MG/0.4 ML DISP.SYRIN SQ SCH (08:22)
[2022-05-14] MEDS: PANTOPRAZOLE SODIUM 40 MG VIAL IV SCH (08:22)
[2022-05-14] MEDS: THERAHONEY GEL 1.5 OZ TUBE TOP SCH (08:24)
[2022-05-14] MEDS: SODIUM HYPOCHLORITE 0.125% (QUARTER STRENGTH) 473 ML BOTTLE TP SCH (08:25)
[2022-05-14] MEDS: KETOCONAZOLE 2% CREAM 30 GM TUBE TP SCH (08:26)
[2022-05-14] MEDS: ZINC SULFATE 220 MG CAPSULE GT SCH (09:00)
[2022-05-14] MEDS: ASCORBIC ACID 500 MG TABLET GT SCH (09:00)
[2022-05-14] MEDS: MULTIVITAMINS,THERAPEUTIC TABLET GT SCH (09:00)
[2022-05-14] MEDS: PROTEIN SUPPLEMENT (PROSTAT) 30 ML LIQUID GT SCH ×3 (09:00→16:07)
[2022-05-14] MEDS: BACLOFEN 10 MG TABLET GT SCH ×2 (09:00→20:56)
[2022-05-14] MEDS ORDERED: TPN BAG #10 IV SCH ×5 (09:00)
[2022-05-14] MEDS: AMANTADINE HCL 100 MG CAPSULE GT SCH (09:00)
[2022-05-14] MEDS ORDERED: DEXTROSE 50% 50 ML DISP.SYRIN IV PRN (12:45)
[2022-05-14] MEDS: BLOOD SUGAR DIAGNOSTIC 1 EACH STRIP VI SCH ×2 (12:45→18:30)
[2022-05-14] MEDS: DOCUSATE SODIUM 100 MG/10 ML LIQUID UDC GT SCH (20:56)
[2022-05-14] MEDS: PHENOBARBITAL SODIUM 130 MG/1 ML DISP.SYRIN IV SCH (20:58)
[2022-05-15] VITALS (19 sets, daily range): BP systolic 118–159; BP diastolic 65–81
[2022-05-15 05:24] LABS: HEMATOCRIT 23.2 % (31.2-41.9); MEAN CORPUSCULAR HEMOGLOBIN 30.5 uug (24.7-32.8); MEAN CORPUSCULAR VOLUME 90.8 fL (75.5-95.3); PLATELET COUNT (AUTO) 341 K/uL (179-408)
[2022-05-15 05:35] LABS: CARBON DIOXIDE 26 mmol/L (21-32); CHLORIDE 107 mmol/L (98-107); CREATININE 0.5 mg/dL (0.6-1.3); GLUCOSE 128 mg/dL (74-106); MAGNESIUM 2.1 mg/dL (1.8-2.4); POTASSIUM 3.1 mmol/L (3.5-5.1); UREA NITROGEN, BLOOD 17 mg/dL (7-18)
[2022-05-15] MEDS: BLOOD SUGAR DIAGNOSTIC 1 EACH STRIP VI SCH ×3 (06:00→18:00)
[2022-05-15] MEDS: PROPOFOL 100 ML IV PRN (06:00)
--- NOTE | 2022-05-15 06:00 | NUR ---
--PT CONT. WITH STABLE VS. NO CHANGE IN NEURO STATUS. PT OPENS EYES OCCASS. BUT DOESN'T FOLLOW S.COMMDS. IVS I/P VIA L.ARM PICC LINE. F/C I/P U/O 950CC GAYE/CLR SL. CLOUDY. RECT.TUBE IINTACT-75CC OOUT. PT HAS BEEN ON DIPRIVAN DRIP FOR SEDATION AT 30MCG. PT HAS TPN AT 60CC/HR.BATH AND LINEN CHANGE DONE. PT HAS GT THAT CONT. TO LEAK SECRETIONS-PT HAS REDNESS AROUND GT SITE. AM LABS DONE. PT RADHA VENT WELL VIA TRACH WITH POX OF 98%. RESPS REG/UNLAB. WOUND CARE GIVEN OVER LEFT BUTTOCK,SACRAL AREA AND FT. GEN COND HAS BEEN STABLE/GUARDED. PT ENDORSED TO TEDDY CARRERO. JAYSON ESPINAL
--- NOTE | 2022-05-15 08:00 | NUR ---
Received patient from the off going nurse. Patient is on the monitor and storage bin tender observed with on A-fib fluctuating rate of 100-120's, blood pressure within desired limits. Patient is on the ventilator via tracheostomy collar, tolerating the vent; tracheostomy care completed by RT tolerated well. Full bed bath, linen and all dressings changed. Turned and repositioned every 2 hours. Patient is on Levophed and tolerating treatment. Galdamez catheter in place and draining via gravity clear hector and Flexi-seal in place and draining. Patient is afebrile. Patient displays no S/S of pain/discomfort at this time. Patient is stable and monitoring continues.
[2022-05-15] MEDS: THERAHONEY GEL 1.5 OZ TUBE TOP SCH (09:00)
[2022-05-15] MEDS: PROTEIN SUPPLEMENT (PROSTAT) 30 ML LIQUID GT SCH ×3 (09:00→17:00)
[2022-05-15] MEDS ORDERED: TPN BAG #11 IV SCH ×12 (09:00→09:23)
[2022-05-15] MEDS: SODIUM HYPOCHLORITE 0.125% (QUARTER STRENGTH) 473 ML BOTTLE TP SCH (09:00)
[2022-05-15] MEDS: MULTIVITAMINS,THERAPEUTIC TABLET GT SCH (09:00)
[2022-05-15] MEDS: BACLOFEN 10 MG TABLET GT SCH ×2 (09:00→21:00)
[2022-05-15] MEDS: ASCORBIC ACID 500 MG TABLET GT SCH (09:00)
[2022-05-15] MEDS: AMANTADINE HCL 100 MG CAPSULE GT SCH (09:00)
[2022-05-15] MEDS: KETOCONAZOLE 2% CREAM 30 GM TUBE TP SCH (09:00)
[2022-05-15] MEDS: ZINC SULFATE 220 MG CAPSULE GT SCH (09:00)
[2022-05-15 09:18] LABS: ABG BASE EXCESS -1.3 mmol/L; ABG HCO3 22.6 mmol/L; ABG PCO2 34.5 mmHg (35.0-45.0); ABG PH 7.434 (7.350-7.450); ABG PO2 96.4 mmHg (75.0-100.0); ABG SITE RIGHT BRACHIAL; ABG TOTAL HEMOGLOBIN 9.3 G/dL (12.0-16.0); COHb 0.3 % (0.5-1.5); MetHb 0.2 % (0.0-1.5); O2Hb 96.9 % (94.0-97.0); VENT MODE VENT - SIMV10 PS8; VT, ABG 400 mL
[2022-05-15] MEDS: PANTOPRAZOLE SODIUM 40 MG VIAL IV SCH (09:30)
[2022-05-15] MEDS: ENOXAPARIN SODIUM 40 MG/0.4 ML DISP.SYRIN SQ SCH (09:30)
--- NOTE | 2022-05-15 19:30 | NUR ---
Bedside report given to the oncoming nurse. Patient remains stable.
[2022-05-15] MEDS: DOCUSATE SODIUM 100 MG/10 ML LIQUID UDC GT SCH (21:00)
[2022-05-15] MEDS: PHENOBARBITAL SODIUM 130 MG/1 ML DISP.SYRIN IV SCH (21:27)
[2022-05-16] VITALS (22 sets, daily range): BP systolic 124–190; BP diastolic 72–90
[2022-05-16] MEDS: PROPOFOL 100 ML IV PRN (02:08)
[2022-05-16 05:32] LABS: HEMATOCRIT 25.1 % (31.2-41.9); MEAN CORPUSCULAR HEMOGLOBIN 30.1 uug (24.7-32.8); MEAN CORPUSCULAR VOLUME 90.8 fL (75.5-95.3); PLATELET COUNT (AUTO) 381 K/uL (179-408)
[2022-05-16 06:00] LABS: ALANINE AMINOTRANSFERASE 86 U/L (14-59); ALKALINE PHOSPHATASE 231 U/L (50-136); ASPARTATE AMINOTRANSFERASE 64 U/L (15-37); BILIRUBIN,TOTAL 0.2 mg/dL (0.2-1.0); CARBON DIOXIDE 24 mmol/L (21-32); CHLORIDE 109 mmol/L (98-107); CREATININE 0.4 mg/dL (0.6-1.3); GLUCOSE 122 mg/dL (74-106); MAGNESIUM 2.1 mg/dL (1.8-2.4); PHOSPHOROUS 3.4 mg/dL (2.5-4.9); POTASSIUM 3.8 mmol/L (3.5-5.1); TOTAL PROTEIN, SERUM 6.7 g/dL (6.4-8.2); UREA NITROGEN, BLOOD 19 mg/dL (7-18)
[2022-05-16] MEDS: BLOOD SUGAR DIAGNOSTIC 1 EACH STRIP VI SCH ×4 (06:36→18:00)
[2022-05-16] MEDS: BACLOFEN 10 MG TABLET GT SCH ×2 (08:07→21:00)
[2022-05-16] MEDS: AMANTADINE HCL 100 MG CAPSULE GT SCH (08:07)
[2022-05-16] MEDS: ASCORBIC ACID 500 MG TABLET GT SCH (08:07)
[2022-05-16] MEDS: MULTIVITAMINS,THERAPEUTIC TABLET GT SCH (08:07)
[2022-05-16] MEDS: PROTEIN SUPPLEMENT (PROSTAT) 30 ML LIQUID GT SCH ×3 (08:07→17:00)
[2022-05-16] MEDS: ZINC SULFATE 220 MG CAPSULE GT SCH (08:08)
[2022-05-16] MEDS: PANTOPRAZOLE SODIUM 40 MG VIAL IV SCH (08:21)
[2022-05-16] MEDS: ENOXAPARIN SODIUM 40 MG/0.4 ML DISP.SYRIN SQ SCH (08:22)
[2022-05-16] MEDS: SODIUM HYPOCHLORITE 0.125% (QUARTER STRENGTH) 473 ML BOTTLE TP SCH (08:25)
[2022-05-16] MEDS: THERAHONEY GEL 1.5 OZ TUBE TOP SCH (08:25)
[2022-05-16] MEDS: KETOCONAZOLE 2% CREAM 30 GM TUBE TP SCH (08:26)
[2022-05-16 08:57] LABS: ABG BASE EXCESS -2.9 mmol/L; ABG HCO3 21.5 mmol/L; ABG PCO2 35.6 mmHg (35.0-45.0); ABG PH 7.399 (7.350-7.450); ABG PO2 118.9 mmHg (75.0-100.0); ABG SITE RIGHT BRACHIAL; ABG TOTAL HEMOGLOBIN 9.2 G/dL (12.0-16.0); COHb 0.3 % (0.5-1.5); MetHb 0.2 % (0.0-1.5); O2Hb 97.8 % (94.0-97.0); VENT MODE VENT - CPAP
[2022-05-16] MEDS ORDERED: TPN BAG #12 IV SCH ×5 (09:30)
[2022-05-16] MEDS ORDERED: METOPROLOL TARTRATE 5 MG/5 ML VIAL IVP PRN (12:30)
[2022-05-16] MEDS: CLONIDINE-TTS 1 PATCH TD SCH (12:37)
[2022-05-16] MEDS: DOCUSATE SODIUM 100 MG/10 ML LIQUID UDC GT SCH (21:00)
[2022-05-16] MEDS: PHENOBARBITAL SODIUM 130 MG/1 ML DISP.SYRIN IV SCH (21:10)
[2022-05-17] VITALS (29 sets, daily range): BP systolic 102–155; BP diastolic 59–97
--- NOTE | 2022-05-17 05:38 | NUR ---
PATIENT ON REN VENT WITH TRACH AND SECURED, WITH VENT SETTINGS, CPAP 8,,FIO2 @ 30% , PT DOING WELL, TRIAL AEROSOL 30% VIA T/PIECE AT 0600 AND ABG @ 0800 IF TOLERATED . Humza CHA RCP Addendum: 05/17/22 at 0545 by ALTON CHA RT Amended: Links added.
[2022-05-17 05:53] LABS: HEMATOCRIT 24.4 % (31.2-41.9); MEAN CORPUSCULAR HEMOGLOBIN 30.4 uug (24.7-32.8); MEAN CORPUSCULAR VOLUME 93.5 fL (75.5-95.3); PLATELET COUNT (AUTO) 201 K/uL (179-408)
[2022-05-17 06:14] LABS: CARBON DIOXIDE 18 mmol/L (21-32); CHLORIDE 110 mmol/L (98-107); CREATININE 0.4 mg/dL (0.6-1.3); GLUCOSE 99 mg/dL (74-106); MAGNESIUM 1.7 mg/dL (1.8-2.4); PHOSPHOROUS 3.2 mg/dL (2.5-4.9); POTASSIUM 3.6 mmol/L (3.5-5.1); UREA NITROGEN, BLOOD 18 mg/dL (7-18)
[2022-05-17] MEDS: BLOOD SUGAR DIAGNOSTIC 1 EACH STRIP VI SCH ×4 (06:54→18:39)
[2022-05-17 08:27] LABS: ABG BASE EXCESS -2.5 mmol/L; ABG HCO3 21.4 mmol/L; ABG PCO2 33.8 mmHg (35.0-45.0); ABG PO2 105.2 mmHg (75.0-100.0); ABG SITE RIGHT BRACHIAL; COHb 0.3 % (0.5-1.5); MetHb 0.3 % (0.0-1.5); O2Hb 97.3 % (94.0-97.0)
[2022-05-17] MEDS: BACLOFEN 10 MG TABLET GT SCH ×2 (08:30→21:00)
[2022-05-17] MEDS: AMANTADINE HCL 100 MG CAPSULE GT SCH (08:31)
[2022-05-17] MEDS: PROTEIN SUPPLEMENT (PROSTAT) 30 ML LIQUID GT SCH ×3 (08:31→16:59)
[2022-05-17] MEDS: MULTIVITAMINS,THERAPEUTIC TABLET GT SCH (08:31)
[2022-05-17] MEDS: ASCORBIC ACID 500 MG TABLET GT SCH (08:31)
[2022-05-17] MEDS: ZINC SULFATE 220 MG CAPSULE GT SCH (08:32)
[2022-05-17] MEDS: KETOCONAZOLE 2% CREAM 30 GM TUBE TP SCH (08:51)
[2022-05-17] MEDS: SODIUM HYPOCHLORITE 0.125% (QUARTER STRENGTH) 473 ML BOTTLE TP SCH (08:52)
[2022-05-17] MEDS: PANTOPRAZOLE SODIUM 40 MG VIAL IV SCH (08:57)
[2022-05-17] MEDS: ENOXAPARIN SODIUM 40 MG/0.4 ML DISP.SYRIN SQ SCH (08:58)
[2022-05-17] MEDS: THERAHONEY GEL 1.5 OZ TUBE TOP SCH (09:07)
[2022-05-17] MEDS ORDERED: TPN BAG #13 IV SCH ×5 (09:30)
[2022-05-17] MEDS: DOCUSATE SODIUM 100 MG/10 ML LIQUID UDC GT SCH (21:00)
[2022-05-17] MEDS: PHENOBARBITAL SODIUM 130 MG/1 ML DISP.SYRIN IV SCH (21:30)
[2022-05-18] VITALS (25 sets, daily range): BP systolic 123–143; BP diastolic 70–87
[2022-05-18] MEDS: ACETAMINOPHEN 650 MG SUPP.RECT RC PRN (01:45)
[2022-05-18] MEDS: BLOOD SUGAR DIAGNOSTIC 1 EACH STRIP VI SCH ×4 (06:00→17:22)
[2022-05-18 06:02] LABS: HEMATOCRIT 24.7 % (31.2-41.9); MEAN CORPUSCULAR HEMOGLOBIN 30.2 uug (24.7-32.8); PLATELET COUNT (AUTO) 347 K/uL (179-408)
[2022-05-18 06:28] LABS: MAGNESIUM 1.8 mg/dL (1.8-2.4); PHOSPHOROUS 3.6 mg/dL (2.5-4.9)
[2022-05-18 06:31] LABS: ALANINE AMINOTRANSFERASE 70 U/L (14-59); ALKALINE PHOSPHATASE 218 U/L (50-136); ASPARTATE AMINOTRANSFERASE 48 U/L (15-37); BILIRUBIN,TOTAL 0.2 mg/dL (0.2-1.0); CARBON DIOXIDE 23 mmol/L (21-32); CHLORIDE 108 mmol/L (98-107); CREATININE 0.4 mg/dL (0.6-1.3); GLUCOSE 113 mg/dL (74-106); POTASSIUM 3.2 mmol/L (3.5-5.1); TOTAL PROTEIN, SERUM 6.5 g/dL (6.4-8.2); UREA NITROGEN, BLOOD 20 mg/dL (7-18)
--- NOTE | 2022-05-18 07:16 | NUR ---
went to RN physically: patient has CTA Chest Angio and also CT Head w/o. RN to call Radiology Department when ready.
[2022-05-18] MEDS: AMANTADINE HCL 100 MG CAPSULE GT SCH (08:39)
[2022-05-18] MEDS: BACLOFEN 10 MG TABLET GT SCH ×2 (08:39→21:00)
[2022-05-18] MEDS: PROTEIN SUPPLEMENT (PROSTAT) 30 ML LIQUID GT SCH ×3 (08:39→17:00)
[2022-05-18] MEDS: THERAHONEY GEL 1.5 OZ TUBE TOP SCH (08:40)
[2022-05-18] MEDS: ASCORBIC ACID 500 MG TABLET GT SCH (08:40)
[2022-05-18] MEDS: MULTIVITAMINS,THERAPEUTIC TABLET GT SCH (08:40)
[2022-05-18] MEDS: ZINC SULFATE 220 MG CAPSULE GT SCH (08:40)
[2022-05-18] MEDS: SODIUM HYPOCHLORITE 0.125% (QUARTER STRENGTH) 473 ML BOTTLE TP SCH (08:41)
[2022-05-18] MEDS: KETOCONAZOLE 2% CREAM 30 GM TUBE TP SCH (08:41)
[2022-05-18] MEDS: ENOXAPARIN SODIUM 40 MG/0.4 ML DISP.SYRIN SQ SCH (08:44)
[2022-05-18] MEDS: PANTOPRAZOLE SODIUM 40 MG VIAL IV SCH (08:44)
[2022-05-18 09:29] LABS: *BILIRUBIN,URIN NEGATIVE (NEGATIVE); *BLOOD, URINE 2+ (NEGATIVE); *CLARITY,URINE CLEAR (CLEAR); *COLOR,URINE YELLOW (YELLOW); *KETONES,URINE NEGATIVE (NEGATIVE); *UROBILINOGEN,URINE 0.2 E.U./dl (NORMAL); LEUKOCYTE ESTERASE ,URINE 1+ (NEGATIVE); NITRITE, URINE NEGATIVE (NEGATIVE); PH,URINE 5.5 (5.0-8.0); UGLUCOSE NEGATIVE (NEGATIVE)
[2022-05-18] MEDS ORDERED: TPN BAG #14 IV SCH ×5 (09:30)
[2022-05-18 10:19] LABS: BACTERIA,URINE FEW /HPF (NONE SEEN); RBC,URINE 0-3 /HPF (0-3); SQUAMOUS EPITHELIAL CELL,UR FEW /HPF (NONE SEEN)
--- NOTE | 2022-05-18 10:53 | NUR ---
CT Head and chest no contrast completed tolerated well. Urine specimen to lab.
[2022-05-18] MEDS: METOPROLOL TARTRATE 25 MG TABLET GT SCH ×2 (11:53→21:00)
--- NOTE | 2022-05-18 16:15 | NUR ---
Dr Munoz in for rounds updating visiting father on status and plan of care.
--- NOTE | 2022-05-18 17:04 | NUR ---
Wound nurse rounds and assessment dressing changed to right buttocks.
[2022-05-18] MEDS: DOCUSATE SODIUM 100 MG/10 ML LIQUID UDC GT SCH (21:00)
[2022-05-18] MEDS: PHENOBARBITAL SODIUM 130 MG/1 ML DISP.SYRIN IV SCH (21:12)
[2022-05-19] VITALS (20 sets, daily range): BP systolic 113–151; BP diastolic 61–85
[2022-05-19 05:34] LABS: HEMATOCRIT 26.5 % (31.2-41.9); MEAN CORPUSCULAR HEMOGLOBIN 30.2 uug (24.7-32.8); MEAN CORPUSCULAR VOLUME 90.5 fL (75.5-95.3); PLATELET COUNT (AUTO) 362 K/uL (179-408)
[2022-05-19] MEDS: BLOOD SUGAR DIAGNOSTIC 1 EACH STRIP VI SCH ×4 (06:00→17:08)
[2022-05-19 06:02] LABS: CARBON DIOXIDE 27 mmol/L (21-32); CREATININE 0.5 mg/dL (0.6-1.3); GLUCOSE 130 mg/dL (74-106); PHOSPHOROUS 4.1 mg/dL (2.5-4.9); TRIGLYCERIDES 472 MG/DL (30-150); UREA NITROGEN, BLOOD 23 mg/dL (7-18)
[2022-05-19] MEDS ORDERED: MEROPENEM 1 G in IV NORMAL SALINE 100 ML IV SCH (07:30)
[2022-05-19 08:05] LABS: CHLORIDE 106 mmol/L (98-107); POTASSIUM 3.7 mmol/L (3.5-5.1)
[2022-05-19] MEDS: MEROPENEM 1 G in IV NORMAL SALINE 100 ML IV SCH ×2 (08:19→16:05)
[2022-05-19] MEDS: PANTOPRAZOLE SODIUM 40 MG VIAL IV SCH (08:25)
[2022-05-19] MEDS: ASCORBIC ACID 500 MG TABLET GT SCH (08:26)
[2022-05-19] MEDS: MULTIVITAMINS,THERAPEUTIC TABLET GT SCH (08:26)
[2022-05-19] MEDS: ZINC SULFATE 220 MG CAPSULE GT SCH (08:26)
[2022-05-19] MEDS: THERAHONEY GEL 1.5 OZ TUBE TOP SCH (08:29)
[2022-05-19] MEDS: SODIUM HYPOCHLORITE 0.125% (QUARTER STRENGTH) 473 ML BOTTLE TP SCH (08:29)
[2022-05-19] MEDS: BACLOFEN 10 MG TABLET GT SCH ×2 (08:32→21:19)
[2022-05-19] MEDS: ENOXAPARIN SODIUM 40 MG/0.4 ML DISP.SYRIN SQ SCH (08:46)
[2022-05-19] MEDS: AMANTADINE HCL 100 MG CAPSULE GT SCH (08:49)
[2022-05-19] MEDS: PROTEIN SUPPLEMENT (PROSTAT) 30 ML LIQUID GT SCH ×3 (08:54→16:06)
[2022-05-19] MEDS: METOPROLOL TARTRATE 25 MG TABLET GT SCH ×2 (08:56→21:25)
[2022-05-19] MEDS: KETOCONAZOLE 2% CREAM 30 GM TUBE TP SCH (08:57)
[2022-05-19] MEDS ORDERED: TPN BAG #15 IV SCH ×7 (09:30)
--- NOTE | 2022-05-19 17:37 | NUR ---
Shift Clinical NOte 0800: Received patient from third shift lieutenant. Pt does not have Chest Tube. Pt is on T_Piece. Pt opens eyes but does not follow commands. Pt turned and repositioned per unit protocol. 13:00 Grandmother visited with patient for about [address] minutes. 13:15 Dr. Munoz clarified that he still wants patient to go for CTA with contrast. 15:00 Grandmother contacted re: CTA chest ordered by Dr. Munoz. Grandma contacted at [phone] and grandmother Gregg Bray stated that she is refusing consent for CTA untill she speaks with the Doctor Alexander. I immediately informed Dr. Munoz and he said he will attempt to reach her. Report will be endorsed to third shift lieutenant RN
[2022-05-19] MEDS: DOCUSATE SODIUM 100 MG/10 ML LIQUID UDC GT SCH (21:18)
[2022-05-19] MEDS: PHENOBARBITAL SODIUM 130 MG/1 ML DISP.SYRIN IV SCH (21:18)
[2022-05-19] MEDS: METOCLOPRAMIDE HCL 10 MG/2 ML VIAL IV SCH (21:19)
[2022-05-20] VITALS (22 sets, daily range): BP systolic 111–147; BP diastolic 2–92
[2022-05-20] MEDS: MEROPENEM 1 G in IV NORMAL SALINE 100 ML IV SCH ×4 (00:34→23:41)
[2022-05-20] MEDS: BLOOD SUGAR DIAGNOSTIC 1 EACH STRIP VI SCH ×5 (00:47→23:58)
[2022-05-20 05:37] LABS: HEMATOCRIT 27.6 % (31.2-41.9); MEAN CORPUSCULAR HEMOGLOBIN 30.1 uug (24.7-32.8); MEAN CORPUSCULAR VOLUME 89.8 fL (75.5-95.3); PLATELET COUNT (AUTO) 339 K/uL (179-408)
[2022-05-20 05:48] LABS: CARBON DIOXIDE 26 mmol/L (21-32); CHLORIDE 105 mmol/L (98-107); CREATININE 0.5 mg/dL (0.6-1.3); GLUCOSE 115 mg/dL (74-106); MAGNESIUM 2.1 mg/dL (1.8-2.4); PHOSPHOROUS 3.7 mg/dL (2.5-4.9); POTASSIUM 3.8 mmol/L (3.5-5.1); UREA NITROGEN, BLOOD 26 mg/dL (7-18)
[2022-05-20] MEDS: INSULIN REGULAR, HUMAN 300 UNIT/3 ML VIAL SQ PRN (06:28)
[2022-05-20] MEDS: METOCLOPRAMIDE HCL 10 MG/2 ML VIAL IV SCH ×3 (06:30→22:33)
[2022-05-20] MEDS: AMANTADINE HCL 100 MG CAPSULE GT SCH (09:00)
[2022-05-20] MEDS: PANTOPRAZOLE SODIUM 40 MG VIAL IV SCH (09:49)
[2022-05-20] MEDS: ZINC SULFATE 220 MG CAPSULE GT SCH (09:49)
[2022-05-20] MEDS: MULTIVITAMINS,THERAPEUTIC TABLET GT SCH (09:49)
[2022-05-20] MEDS: ASCORBIC ACID 500 MG TABLET GT SCH (09:49)
[2022-05-20] MEDS: PROTEIN SUPPLEMENT (PROSTAT) 30 ML LIQUID GT SCH ×3 (09:50→17:00)
[2022-05-20] MEDS: BACLOFEN 10 MG TABLET GT SCH ×2 (09:51→20:29)
[2022-05-20] MEDS: METOPROLOL TARTRATE 25 MG TABLET GT SCH (09:51)
[2022-05-20] MEDS: THERAHONEY GEL 1.5 OZ TUBE TOP SCH (09:51)
[2022-05-20] MEDS: KETOCONAZOLE 2% CREAM 30 GM TUBE TP SCH (09:52)
[2022-05-20] MEDS: ENOXAPARIN SODIUM 40 MG/0.4 ML DISP.SYRIN SQ SCH (09:52)
[2022-05-20] MEDS: SODIUM HYPOCHLORITE 0.125% (QUARTER STRENGTH) 473 ML BOTTLE TP SCH (09:52)
[2022-05-20] MEDS ORDERED: TPN BAG #16 IV SCH ×5 (10:00)
--- NOTE | 2022-05-20 11:41 | NUR ---
Grandparents present spoke with primary HIGH RISK OB on case procedure explained Grandparents validated allergy and no one gives her contrast per grandparents because of the allergies. In no respiratory distress at this point remains on T Piece to trach color at 6 liters 30% FiO2 oxygen saturation >97% pink, warm, and dry.
[2022-05-20] MEDS ORDERED: DIATR MEGLU/DIATRIZOATE SODIUM 30 ML BOTTLE PO ONE (12:07)
--- NOTE | 2022-05-20 13:27 | NUR ---
Peg tube gastrographen completed by radiology at bedside awaiting results.
--- NOTE | 2022-05-20 15:22 | NUR ---
Notified Nurse Practitioner to order a dietary consult for tube feedings.
[2022-05-20] MEDS: TRAMADOL HCL 50 MG TABLET GT SCH (17:00)
--- NOTE | 2022-05-20 18:59 | NUR ---
Tolerating tube feedings no leaks no residuals at 10cc/hr.
--- NOTE | 2022-05-20 19:13 | NUR ---
Shift change and Report given to on coming noc nurse RN
[2022-05-20] MEDS: DOCUSATE SODIUM 100 MG/10 ML LIQUID UDC GT SCH (20:23)
[2022-05-20] MEDS: METOPROLOL TARTRATE 50 MG TABLET GT SCH (20:24)
[2022-05-20] MEDS: APIXABAN 2.5 MG TABLET GT SCH (20:25)
[2022-05-20] MEDS: PHENOBARBITAL SODIUM 130 MG/1 ML DISP.SYRIN IV SCH (20:26)
[2022-05-21] VITALS (22 sets, daily range): BP systolic 113–142; BP diastolic 66–92
[2022-05-21 05:27] LABS: HEMATOCRIT 26.7 % (31.2-41.9); MEAN CORPUSCULAR HEMOGLOBIN 30.4 uug (24.7-32.8); MEAN CORPUSCULAR VOLUME 89.9 fL (75.5-95.3); PLATELET COUNT (AUTO) 310 K/uL (179-408)
[2022-05-21 05:40] LABS: CREATININE 0.6 mg/dL (0.6-1.3); MAGNESIUM 1.9 mg/dL (1.8-2.4); PHOSPHOROUS 3.3 mg/dL (2.5-4.9); POTASSIUM 3.8 mmol/L (3.5-5.1)
[2022-05-21] MEDS: METOCLOPRAMIDE HCL 10 MG/2 ML VIAL IV SCH ×3 (06:15→22:00)
[2022-05-21] MEDS: BLOOD SUGAR DIAGNOSTIC 1 EACH STRIP VI SCH (06:15)
--- NOTE | 2022-05-21 06:24 | NUR ---
20:00 Report received from outgoing RN. Pt is in bed, awake but non-responsive.No distress noted. 00.00 Pt resting comfortably. No distress noted. Pt turned and repositioned. Respiratory treatment given. Oral care done. 06:00 Pt rested comfortably throughout the night. No distress noted. Pt turned and repositioned per unit protocol and respiratory Therapist administered Respiratory treatments . Pt is currently on 30ML Tube feeding and tolerates this with no residuals. Change of shift report will be endorsed to day shift nurse.
[2022-05-21] MEDS ORDERED: LIDOCAINE 1%-EPI 1:100,000 20 ML VIAL IJ PRN ×2 (08:45→10:30)
[2022-05-21] MEDS: PROTEIN SUPPLEMENT (PROSTAT) 30 ML LIQUID GT SCH (09:00)
[2022-05-21] MEDS: MEROPENEM 1 G in IV NORMAL SALINE 100 ML IV SCH ×2 (09:00→15:54)
[2022-05-21] MEDS: PANTOPRAZOLE SODIUM 40 MG VIAL IV SCH (09:45)
[2022-05-21] MEDS: ZINC SULFATE 220 MG CAPSULE GT SCH (09:46)
[2022-05-21] MEDS: BACLOFEN 10 MG TABLET GT SCH ×2 (09:46→21:00)
[2022-05-21] MEDS: METOPROLOL TARTRATE 50 MG TABLET GT SCH ×2 (09:47→21:00)
[2022-05-21] MEDS: ASCORBIC ACID 500 MG TABLET GT SCH (09:48)
[2022-05-21] MEDS: TRAMADOL HCL 50 MG TABLET GT SCH ×2 (09:48→16:48)
[2022-05-21] MEDS: AMANTADINE HCL 100 MG CAPSULE GT SCH (09:48)
[2022-05-21] MEDS: APIXABAN 2.5 MG TABLET GT SCH ×2 (09:50→21:41)
[2022-05-21] MEDS: SODIUM HYPOCHLORITE 0.125% (QUARTER STRENGTH) 473 ML BOTTLE TP SCH (09:52)
[2022-05-21] MEDS: KETOCONAZOLE 2% CREAM 30 GM TUBE TP SCH (09:53)
[2022-05-21] MEDS ORDERED: TPN BAG #17 IV SCH ×6 (10:00→10:30)
[2022-05-21] MEDS ORDERED: LIDOCAINE 1%-EPI 1:200,000 MPF 30 ML VIAL MC PRN (10:30)
[2022-05-21] MEDS ORDERED: SILVER NITRATE APPLICATOR STICK EACH TP PRN (10:30)
[2022-05-21] MEDS: THERAHONEY GEL 1.5 OZ TUBE TOP SCH (13:00)
[2022-05-21] MEDS: MULTIVITAMINS,THERAPEUTIC TABLET GT SCH (15:53)
[2022-05-21] MEDS: DOCUSATE SODIUM 100 MG/10 ML LIQUID UDC GT SCH (21:00)
[2022-05-21] MEDS ORDERED: PHENOBARBITAL 32.4 MG TABLET GT SCH (21:00)
[2022-05-21] MEDS: levETIRAcetam 500 MG/5 ML LIQUID UDC GT SCH (21:00)
[2022-05-22] VITALS (15 sets, daily range): BP systolic 118–145; BP diastolic 68–94
[2022-05-22] MEDS: MEROPENEM 1 G in IV NORMAL SALINE 100 ML IV SCH ×3 (01:43→18:46)
--- NOTE | 2022-05-22 02:14 | NUR ---
PT RECEIVED IN BED AWAKE AND IS ALERT. AND UNRESPONSIVE TO COMMAND. PT DOES NOT TRACK. WITHDRAW TO PAINFUL STIMULI. PT ON TRACH COLLAR AND O2 30%. HOB 30 DEGREE.. PT IS TOLERATING SAME. CARDIAC RHYTHM ST HR 125. WILL MEDICATE AND CINTINUE TO MONITOR. ABD DISTENDED NO RESIDUAL. GLUCERNA INFUSING AT 55 CC/HR. TRINI PICC INTACT AND PATENT. DRESSING TO R BUTTOK AND B/L ANKLES ARE CLEAN AND INTACT. TRACH SITE SITE WITHOUT OOZING.. WILL CONTINUE TO MONITOR. Addendum: 05/22/22 at 0249 by REGISTRY [facility] RN17 RN LATE ENTRY FOR 05/21/221999
--- NOTE | 2022-05-22 02:52 | NUR ---
FINGERSTICK 85. RESIDUAL 85. FEEG OOSING FROM INSERTION SITE. SKIN AROUND STOMA IR REDDENED. CLEANSE SITE AND APPLY FOAM. PAGE TO INORM OG BLOOD SUGAR.
--- NOTE | 2022-05-22 04:21 | NUR ---
received orders from Dr Kumar to stop tube feeding and start d5.45NS @ 100 cchr. same done at as per the order.
[2022-05-22] MEDS ORDERED: IV D5 1/2 NS 1000 ML 1,000 ML IV PRN ×2 (04:45→13:00)
[2022-05-22 05:34] LABS: MEAN CORPUSCULAR HEMOGLOBIN 30.7 uug (24.7-32.8); PLATELET COUNT (AUTO) 268 K/uL (179-408)
[2022-05-22 05:39] LABS: CREATININE 0.7 mg/dL (0.6-1.3); MAGNESIUM 1.8 mg/dL (1.8-2.4); PHOSPHOROUS 4.4 mg/dL (2.5-4.9); POTASSIUM 3.8 mmol/L (3.5-5.1)
[2022-05-22] MEDS: METOCLOPRAMIDE HCL 10 MG/2 ML VIAL IV SCH ×3 (06:00→21:16)
--- NOTE | 2022-05-22 08:09 | NUR ---
Shift change and Report given to on coming night nurse RN
[2022-05-22] MEDS: APIXABAN 2.5 MG TABLET GT SCH ×2 (09:00→21:02)
[2022-05-22] MEDS: AMANTADINE HCL 100 MG CAPSULE GT SCH (09:29)
[2022-05-22] MEDS: levETIRAcetam 500 MG/5 ML LIQUID UDC GT SCH (09:29)
[2022-05-22] MEDS: TRAMADOL HCL 50 MG TABLET GT SCH ×2 (09:32→17:00)
[2022-05-22] MEDS: METOPROLOL TARTRATE 50 MG TABLET GT SCH ×2 (09:33→21:01)
[2022-05-22] MEDS: MULTIVITAMINS,THERAPEUTIC TABLET GT SCH (09:33)
[2022-05-22] MEDS: PANTOPRAZOLE SODIUM 40 MG VIAL IV SCH (09:33)
[2022-05-22] MEDS: BACLOFEN 10 MG TABLET GT SCH ×2 (09:33→21:01)
[2022-05-22] MEDS: ZINC SULFATE 220 MG CAPSULE GT SCH (09:34)
[2022-05-22] MEDS: ASCORBIC ACID 500 MG TABLET GT SCH (09:34)
[2022-05-22] MEDS: SODIUM HYPOCHLORITE 0.125% (QUARTER STRENGTH) 473 ML BOTTLE TP SCH (09:34)
[2022-05-22] MEDS: PROTEIN SUPPLEMENT (PROSTAT) 30 ML LIQUID GT SCH ×3 (10:05→17:00)
[2022-05-22] MEDS ORDERED: TPN/PPN PER PHARMACY IV PRN (11:30)
[2022-05-22] MEDS: THERAHONEY GEL 1.5 OZ TUBE TOP SCH (12:30)
[2022-05-22] MEDS ORDERED: TPN BAG #1 IV SCH ×7 (13:00)
[2022-05-22] MEDS: KETOCONAZOLE 2% CREAM 30 GM TUBE TP SCH (14:15)
--- NOTE | 2022-05-22 18:24 | NUR ---
TRANSFERRED FROM CCU VIA BED ERIC STATUS
[2022-05-22] MEDS: BLOOD SUGAR DIAGNOSTIC 1 EACH STRIP VI SCH (18:25)
[2022-05-22] MEDS: DOCUSATE SODIUM 100 MG/10 ML LIQUID UDC GT SCH (21:00)
[2022-05-22] MEDS: ACETAMINOPHEN 325 MG TABLET GT PRN (21:13)
[2022-05-22] MEDS: PHENOBARBITAL SODIUM 130 MG/1 ML DISP.SYRIN IV SCH (21:27)
[2022-05-23 00:05] VITALS: BP 117/86
[2022-05-23] MEDS: BLOOD SUGAR DIAGNOSTIC 1 EACH STRIP VI SCH ×5 (00:49→23:58)
[2022-05-23] MEDS: MEROPENEM 1 G in IV NORMAL SALINE 100 ML IV SCH ×3 (00:49→16:53)
[2022-05-23 04:07] VITALS: BP 120/81
[2022-05-23] MEDS ORDERED: PANTOPRAZOLE ORAL SUSPENSION 40 MG SUSPDR.PKT GT SCH (06:00)
[2022-05-23] MEDS: METOCLOPRAMIDE HCL 10 MG/2 ML VIAL IV SCH ×3 (06:06→21:26)
--- NOTE | 2022-05-23 06:07 | NUR ---
Patient rested well in between care; rounding done q1h; repositioned q2h; wound photos taken with dressing changes; suctioned secretions via trache and orally; oral care done;
[2022-05-23 06:59] LABS: HEMATOCRIT 24.9 % (31.2-41.9); MEAN CORPUSCULAR HEMOGLOBIN 30.9 uug (24.7-32.8); MEAN CORPUSCULAR VOLUME 89.3 fL (75.5-95.3); PLATELET COUNT (AUTO) 227 K/uL (179-408)
[2022-05-23 07:18] LABS: CARBON DIOXIDE 30 mmol/L (21-32); CHLORIDE 101 mmol/L (98-107); CREATININE 0.5 mg/dL (0.6-1.3); GLUCOSE 126 mg/dL (74-106); MAGNESIUM 1.8 mg/dL (1.8-2.4); PHOSPHOROUS 4.1 mg/dL (2.5-4.9); POTASSIUM 3.4 mmol/L (3.5-5.1); UREA NITROGEN, BLOOD 15 mg/dL (7-18)
[2022-05-23 07:37] VITALS: BP 125/92
--- NOTE | 2022-05-23 07:52 | NUR ---
Awake. Trach to 6L p mist. TPN and IVF infusing. On moderate high back rest.
[2022-05-23] MEDS: APIXABAN 2.5 MG TABLET GT SCH ×2 (08:36→20:39)
[2022-05-23] MEDS: BACLOFEN 10 MG TABLET GT SCH ×2 (08:36→20:40)
[2022-05-23] MEDS: AMANTADINE HCL 100 MG CAPSULE GT SCH (08:37)
[2022-05-23] MEDS: TRAMADOL HCL 50 MG TABLET GT SCH ×2 (08:37→17:00)
[2022-05-23] MEDS: ASCORBIC ACID 500 MG TABLET GT SCH (08:37)
[2022-05-23] MEDS: METOPROLOL TARTRATE 50 MG TABLET GT SCH ×2 (08:42→20:42)
[2022-05-23] MEDS: ZINC SULFATE 220 MG CAPSULE GT SCH (08:42)
[2022-05-23] MEDS: PROTEIN SUPPLEMENT (PROSTAT) 30 ML LIQUID GT SCH ×4 (08:43→17:00)
[2022-05-23] MEDS: PANTOPRAZOLE SODIUM 40 MG VIAL IV SCH (08:49)
[2022-05-23] MEDS: SODIUM HYPOCHLORITE 0.125% (QUARTER STRENGTH) 473 ML BOTTLE TP SCH (08:50)
[2022-05-23] MEDS: KETOCONAZOLE 2% CREAM 30 GM TUBE TP SCH (08:51)
[2022-05-23] MEDS: POTASSIUM CHLORIDE 50 ML IV SCH ×2 (09:27→10:33)
--- NOTE | 2022-05-23 10:00 | NUR ---
Noted leakage from GT site after giving medication. Hospitalist informed, with plan for surgical consult. GT site dressing changed.
[2022-05-23 11:21] VITALS: BP 121/61
[2022-05-23] MEDS ORDERED: TPN BAG #2 IV SCH ×5 (13:00)
[2022-05-23] MEDS ORDERED: IV D5 1/2 NS 1000 ML 1,000 ML IV PRN (13:00)
[2022-05-23] MEDS: THERAHONEY GEL 1.5 OZ TUBE TOP SCH (13:20)
[2022-05-23] MEDS: CLONIDINE-TTS 1 PATCH TD SCH (13:21)
--- NOTE | 2022-05-23 15:00 | NUR ---
Secretions suctioned. Oral and trach care done. Wound care done as ordered. Repositioned in bed comfortably
[2022-05-23 15:22] VITALS: BP 136/75
--- NOTE | 2022-05-23 18:19 | NUR ---
Oral secretions suctioned. Oral care done. MRSA Swab nares collected and sent to lab. Repositioned comfortably
[2022-05-23] MEDS ORDERED: COLLAGENASE OINT 30 GM TUBE TOP SCH (18:45)
[2022-05-23 20:00] VITALS: BP 147/95
[2022-05-23] MEDS: DOCUSATE SODIUM 100 MG/10 ML LIQUID UDC GT SCH (20:37)
[2022-05-23] MEDS: PHENOBARBITAL SODIUM 130 MG/1 ML DISP.SYRIN IV SCH (20:43)
[2022-05-24 00:30] VITALS: BP 149/95
[2022-05-24] MEDS ORDERED: HYDROMORPHONE 1 MG/1 ML DISP.SYRIN IV ONE (01:15)
[2022-05-24 05:10] VITALS: BP_SYST 132; BP_SYST 149; BP_DIAS 81; BP_DIAS 95
[2022-05-24] MEDS: METOCLOPRAMIDE HCL 10 MG/2 ML VIAL IV SCH ×3 (05:44→22:04)
[2022-05-24] MEDS: BLOOD SUGAR DIAGNOSTIC 1 EACH STRIP VI SCH ×3 (05:44→17:19)
[2022-05-24 07:18] LABS: HEMATOCRIT 26.2 % (31.2-41.9); MEAN CORPUSCULAR HEMOGLOBIN 30.6 uug (24.7-32.8); MEAN CORPUSCULAR VOLUME 88.8 fL (75.5-95.3); PLATELET COUNT (AUTO) 244 K/uL (179-408)
[2022-05-24 07:35] LABS: CARBON DIOXIDE 29 mmol/L (21-32); CHLORIDE 104 mmol/L (98-107); CREATININE 0.5 mg/dL (0.6-1.3); GLUCOSE 120 mg/dL (74-106); PHOSPHOROUS 3.9 mg/dL (2.5-4.9); POTASSIUM 3.4 mmol/L (3.5-5.1); TRIGLYCERIDES 368 MG/DL (30-150); UREA NITROGEN, BLOOD 16 mg/dL (7-18)
[2022-05-24 07:39] VITALS: BP 136/81
--- NOTE | 2022-05-24 08:00 | NUR ---
AWAKE WITH EYES WIDE OPEN BUT NOT FOLLOWING DIRECTIONS AND NO EYE CONTACT, SR/ST ON MONITOR, ON 6L VIA TEACH SATURATING 96%, NO SS OF DISTRESS
[2022-05-24] MEDS: PANTOPRAZOLE SODIUM 40 MG VIAL IV SCH (08:56)
[2022-05-24] MEDS: AMANTADINE HCL 100 MG CAPSULE GT SCH (08:57)
[2022-05-24] MEDS: ASCORBIC ACID 500 MG TABLET GT SCH (08:57)
[2022-05-24] MEDS: ZINC SULFATE 220 MG CAPSULE GT SCH (08:58)
[2022-05-24] MEDS: BACLOFEN 10 MG TABLET GT SCH ×3 (08:58→21:02)
[2022-05-24] MEDS: TRAMADOL HCL 50 MG TABLET GT SCH ×2 (09:00→17:36)
[2022-05-24] MEDS: PROTEIN SUPPLEMENT (PROSTAT) 30 ML LIQUID GT SCH ×3 (09:00→16:34)
[2022-05-24] MEDS: SODIUM HYPOCHLORITE 0.125% (QUARTER STRENGTH) 473 ML BOTTLE TP SCH (09:02)
[2022-05-24] MEDS: THERAHONEY GEL 1.5 OZ TUBE TOP SCH (09:02)
[2022-05-24] MEDS: METOPROLOL TARTRATE 50 MG TABLET GT SCH ×3 (09:06→21:02)
[2022-05-24] MEDS: APIXABAN 2.5 MG TABLET GT SCH ×2 (09:07→21:07)
[2022-05-24] MEDS: KETOCONAZOLE 2% CREAM 30 GM TUBE TP SCH (09:08)
--- NOTE | 2022-05-24 10:00 | NUR ---
SEEN BY HOSPITALIST FOR FOLLOW-UP SEE NOTES. NOTED ABNORMAL LABS WITH ORDERS. CONTINUE WITH WOUND CARE TX ORDERED
[2022-05-24 11:05] VITALS: BP 133/87
--- NOTE | 2022-05-24 11:30 | NUR ---
LIDOCAINE ADMINISTERED BY WOUND NURSE AT BEDSIDE, DEBRIDEMENT DONE AFTER, PATIENT TOLERATED WELL
[2022-05-24] MEDS ORDERED: LIDOCAINE 4% TOPICAL 50 ML BOTTLE TP ONE (12:00)
[2022-05-24] MEDS: POTASSIUM CHLORIDE 50 ML IV SCH ×4 (12:56→16:07)
[2022-05-24] MEDS ORDERED: TPN BAG #3 IV SCH ×5 (13:00)
--- NOTE | 2022-05-24 15:06 | NUR ---
CONTINUE WITH TPN ORDERED VIA PICC LINE TRINI
[2022-05-24 15:11] VITALS: BP 121/75
--- NOTE | 2022-05-24 17:24 | NUR ---
Continue TPN through PICC line, wound dressings reassess. Had family visit today.
--- NOTE | 2022-05-24 19:20 | NUR ---
Received Pt from Day Shift. Pt is awake, but is A&Ox0. Pt's eye movement is uncoordinated. Current vitals are BP: 118/73, T: 98.5, P: 100, RR: 20, and SpO2: 97%. Telemonitor shows SR. Will continue to monitor.
[2022-05-24] MEDS: PHENOBARBITAL SODIUM 130 MG/1 ML DISP.SYRIN IV SCH (20:57)
[2022-05-24] MEDS: DOCUSATE SODIUM 100 MG/10 ML LIQUID UDC GT SCH (21:01)
[2022-05-25] VITALS: BP 112/74
[2022-05-25] MEDS: BLOOD SUGAR DIAGNOSTIC 1 EACH STRIP VI SCH ×5 (00:30→23:55)
[2022-05-25 04:00] VITALS: BP 118/65
[2022-05-25] MEDS: METOCLOPRAMIDE HCL 10 MG/2 ML VIAL IV SCH (05:31)
[2022-05-25 06:56] LABS: CARBON DIOXIDE 25 mmol/L (21-32); CHLORIDE 104 mmol/L (98-107); CREATININE 0.4 mg/dL (0.6-1.3); GLUCOSE 107 mg/dL (74-106); MAGNESIUM 2.1 mg/dL (1.8-2.4); PHOSPHOROUS 3.8 mg/dL (2.5-4.9); POTASSIUM 3.9 mmol/L (3.5-5.1); UREA NITROGEN, BLOOD 21 mg/dL (7-18)
[2022-05-25 07:52] VITALS: BP 135/84
--- NOTE | 2022-05-25 08:00 | NUR ---
PT non verbal. TPN infusing as ordered. Rectal tube intact. F/C draining yellowish urine. Tele SNR. Pt is in no acute distress. ML on left arm 3 lumen. 2/3 working.
[2022-05-25 08:53] LABS: HEMATOCRIT 28.1 % (31.2-41.9); MEAN CORPUSCULAR HEMOGLOBIN 29.9 uug (24.7-32.8); MEAN CORPUSCULAR VOLUME 88.3 fL (75.5-95.3); PLATELET COUNT (AUTO) 245 K/uL (179-408)
[2022-05-25] MEDS: PROTEIN SUPPLEMENT (PROSTAT) 30 ML LIQUID GT SCH ×3 (09:00→17:00)
[2022-05-25] MEDS: PANTOPRAZOLE SODIUM 40 MG VIAL IV SCH (09:12)
[2022-05-25] MEDS: AMANTADINE HCL 100 MG CAPSULE GT SCH (09:12)
[2022-05-25] MEDS: BACLOFEN 10 MG TABLET GT SCH (09:13)
[2022-05-25] MEDS: ASCORBIC ACID 500 MG TABLET GT SCH (09:13)
[2022-05-25] MEDS: TRAMADOL HCL 50 MG TABLET GT SCH ×2 (09:15→17:00)
[2022-05-25] MEDS: SODIUM HYPOCHLORITE 0.125% (QUARTER STRENGTH) 473 ML BOTTLE TP SCH (09:16)
[2022-05-25] MEDS: KETOCONAZOLE 2% CREAM 30 GM TUBE TP SCH (09:16)
[2022-05-25] MEDS: THERAHONEY GEL 1.5 OZ TUBE TOP SCH (09:17)
[2022-05-25] MEDS: METOPROLOL TARTRATE 50 MG TABLET GT SCH (09:18)
[2022-05-25] MEDS: APIXABAN 2.5 MG TABLET GT SCH ×2 (09:19→20:30)
[2022-05-25] MEDS: ZINC SULFATE 220 MG CAPSULE GT SCH (09:59)
[2022-05-25 11:27] VITALS: BP 132/80
--- NOTE | 2022-05-25 12:00 | NUR ---
Pt is in no acute distress. Noted MARCO A GALARZA For DR neumann here to see pt. Showed Gtube site redness and draining greenish drain.
[2022-05-25] MEDS ORDERED: TPN BAG #4 IV SCH ×5 (13:00)
[2022-05-25 15:15] VITALS: BP 128/70
[2022-05-25 20:00] VITALS: BP 122/70
[2022-05-25] MEDS: DOCUSATE SODIUM 100 MG/10 ML LIQUID UDC GT SCH (20:28)
[2022-05-25] MEDS: PHENOBARBITAL SODIUM 130 MG/1 ML DISP.SYRIN IV SCH (20:30)
[2022-05-26 00:46] VITALS: BP 131/94
[2022-05-26 04:00] VITALS: BP 137/96
[2022-05-26] MEDS: BLOOD SUGAR DIAGNOSTIC 1 EACH STRIP VI SCH ×3 (06:34→18:56)
[2022-05-26 07:04] LABS: CARBON DIOXIDE 24 mmol/L (21-32); CHLORIDE 104 mmol/L (98-107); CREATININE 0.5 mg/dL (0.6-1.3); GLUCOSE 114 mg/dL (74-106); MAGNESIUM 1.9 mg/dL (1.8-2.4); PHOSPHOROUS 3.9 mg/dL (2.5-4.9); POTASSIUM 3.9 mmol/L (3.5-5.1); TRIGLYCERIDES 374 MG/DL (30-150); UREA NITROGEN, BLOOD 23 mg/dL (7-18)
--- NOTE | 2022-05-26 07:57 | NUR ---
Awake, non verbal. Trach to pmist at 6L with O2 sat of 98%. Secretions suctioned. TPN infusing at 60 ml/hr.
[2022-05-26 08:21] VITALS: BP 134/91
[2022-05-26] MEDS: ASCORBIC ACID 500 MG TABLET GT SCH (09:26)
[2022-05-26] MEDS: TRAMADOL HCL 50 MG TABLET GT SCH ×2 (09:26→16:30)
[2022-05-26] MEDS: AMANTADINE HCL 100 MG CAPSULE GT SCH (09:26)
[2022-05-26] MEDS: METOPROLOL TARTRATE 50 MG TABLET GT SCH ×2 (09:27→21:33)
[2022-05-26] MEDS: ZINC SULFATE 220 MG CAPSULE GT SCH (09:29)
[2022-05-26] MEDS: BACLOFEN 10 MG TABLET GT SCH ×2 (09:30→21:42)
[2022-05-26] MEDS: PANTOPRAZOLE SODIUM 40 MG VIAL IV SCH (09:31)
[2022-05-26] MEDS: APIXABAN 2.5 MG TABLET GT SCH ×2 (09:32→21:35)
[2022-05-26] MEDS: PROTEIN SUPPLEMENT (PROSTAT) 30 ML LIQUID GT SCH ×3 (09:33→16:31)
[2022-05-26] MEDS: KETOCONAZOLE 2% CREAM 30 GM TUBE TP SCH (09:34)
[2022-05-26] MEDS: THERAHONEY GEL 1.5 OZ TUBE TOP SCH (09:34)
[2022-05-26] MEDS: SODIUM HYPOCHLORITE 0.125% (QUARTER STRENGTH) 473 ML BOTTLE TP SCH (09:35)
[2022-05-26 11:34] VITALS: BP 142/92
[2022-05-26] MEDS ORDERED: TPN BAG #5 IV SCH ×7 (13:00)
[2022-05-26] MEDS ORDERED: IV FAT EMULSIONS 20% 250 ML IV ONE (13:00)
[2022-05-26] MEDS: INSULIN REGULAR, HUMAN 300 UNIT/3 ML VIAL SQ PRN (13:08)
--- NOTE | 2022-05-26 14:00 | NUR ---
Clarified tube feeding with business associate regarding bolus rate, Upholstery Covers Inspector consult.
[2022-05-26 16:02] VITALS: BP 141/89
--- NOTE | 2022-05-26 18:00 | NUR ---
Gtube feeding bolus started as ordered. No leakage noted. TPN and Intralipid infusing. trach with 6 L P mist with O2 sat of 97%. Wound care done as ordered. Repositioned comfortably. Afebrile.
[2022-05-26] MEDS: JEVITY 1.2 1000 ML LIQUID GT SCH (18:55)
--- NOTE | 2022-05-26 19:40 | NUR ---
patient eyes open, hob elevated, no sob no chest pain noted, on tpn and lipid tolerate well, no s/s of pain at this time, sinus on tele, for bolus feeding at this time, no residual noted, turn and reposition, tx cont on multiple wound, and gt site excoriation, cont to monitor.
[2022-05-26 20:00] VITALS: BP 139/93
[2022-05-26] MEDS: DOCUSATE SODIUM 100 MG/10 ML LIQUID UDC GT SCH (21:32)
[2022-05-26] MEDS: PHENOBARBITAL SODIUM 130 MG/1 ML DISP.SYRIN IV SCH (21:34)
[2022-05-26] MEDS: NORMAL SALINE IV SCH (22:03)
[2022-05-26] MEDS: LEVETIRACETAM IV SCH (22:03)
[2022-05-27] VITALS: BP 139/78
[2022-05-27] MEDS: BLOOD SUGAR DIAGNOSTIC 1 EACH STRIP VI SCH ×5 (00:59→23:37)
[2022-05-27] MEDS: JEVITY 1.2 1000 ML LIQUID GT SCH ×3 (01:57→12:22)
[2022-05-27 04:00] VITALS: BP 142/91
[2022-05-27 06:26] LABS: CARBON DIOXIDE 23 mmol/L (21-32); CHLORIDE 105 mmol/L (98-107); CREATININE 0.4 mg/dL (0.6-1.3); GLUCOSE 140 mg/dL (74-106); MAGNESIUM 2.2 mg/dL (1.8-2.4); PHOSPHOROUS 3.7 mg/dL (2.5-4.9); POTASSIUM 3.5 mmol/L (3.5-5.1); UREA NITROGEN, BLOOD 26 mg/dL (7-18)
--- NOTE | 2022-05-27 06:41 | NUR ---
patient eyes open, hob elevated, no sob no chest pain, on trach t piece, no desaturation noted, on tpn and lipid, gt bolus tolerate well, no residual noted, gt still excoriated, cont tx. sinus on tele, turn and reposition cont to monitor.
--- NOTE | 2022-05-27 07:30 | NUR ---
Awake, non verbal. Trach to p mist at 6 L[address] Tele SR - ST. GT intact, site no leakage.TPN and Intralipid infusing to PICC line. With rivas catheter and rectal tube.
[2022-05-27 07:43] VITALS: BP 133/93
[2022-05-27] MEDS: ASCORBIC ACID 500 MG TABLET GT SCH (09:01)
[2022-05-27] MEDS: METOPROLOL TARTRATE 50 MG TABLET GT SCH ×2 (09:02→20:46)
[2022-05-27] MEDS: AMANTADINE HCL 100 MG CAPSULE GT SCH (09:02)
[2022-05-27] MEDS: BACLOFEN 10 MG TABLET GT SCH ×2 (09:02→20:47)
[2022-05-27] MEDS: TRAMADOL HCL 50 MG TABLET GT SCH ×2 (09:03→17:16)
[2022-05-27] MEDS: ZINC SULFATE 220 MG CAPSULE GT SCH (09:03)
[2022-05-27] MEDS: PANTOPRAZOLE SODIUM 40 MG VIAL IV SCH (09:04)
[2022-05-27] MEDS: APIXABAN 2.5 MG TABLET GT SCH ×2 (09:05→20:44)
[2022-05-27] MEDS: NORMAL SALINE IV SCH (09:07)
[2022-05-27] MEDS: LEVETIRACETAM IV SCH (09:07)
[2022-05-27] MEDS: PROTEIN SUPPLEMENT (PROSTAT) 30 ML LIQUID GT SCH ×3 (09:09→17:15)
[2022-05-27] MEDS: SODIUM HYPOCHLORITE 0.125% (QUARTER STRENGTH) 473 ML BOTTLE TP SCH (09:10)
[2022-05-27] MEDS: THERAHONEY GEL 1.5 OZ TUBE TOP SCH (09:11)
[2022-05-27] MEDS: KETOCONAZOLE 2% CREAM 30 GM TUBE TP SCH (09:12)
[2022-05-27 11:31] VITALS: BP 136/84
[2022-05-27] MEDS ORDERED: TPN BAG#6 IV SCH ×10 (13:00→15:08)
--- NOTE | 2022-05-27 13:30 | NUR ---
G tube leakage noted after Bolus feeding. G tube checked with Dajuan Keane and Sharee Medina.
--- NOTE | 2022-05-27 15:00 | NUR ---
G Tube bolus feeding discontinued. Parks Recreation Coordinator informed. Pharmacy informed, TPN rate increased back to 60 ML/HR.
[2022-05-27 15:58] VITALS: BP 122/83
[2022-05-27] MEDS: INSULIN REGULAR, HUMAN 300 UNIT/3 ML VIAL SQ PRN (17:17)
--- NOTE | 2022-05-27 18:20 | NUR ---
Still wit leakage at G tube site. Cream applied, dressing changed. Secretions suctioned. Oral care done. Trach with 6L p mist with O2 sat of 99%. Repositioned comfortably.
[2022-05-27 20:00] VITALS: BP 145/91
[2022-05-27] MEDS: PHENOBARBITAL SODIUM 130 MG/1 ML DISP.SYRIN IV SCH (20:39)
[2022-05-27] MEDS: DOCUSATE SODIUM 100 MG/10 ML LIQUID UDC GT SCH (20:39)
[2022-05-27] MEDS: levETIRAcetam 500 MG/5 ML LIQUID UDC GT SCH (20:40)
[2022-05-28] VITALS: BP 125/77
[2022-05-28 04:00] VITALS: BP 139/95
[2022-05-28] MEDS: BLOOD SUGAR DIAGNOSTIC 1 EACH STRIP VI SCH ×3 (05:29→17:32)
[2022-05-28] MEDS: INSULIN REGULAR, HUMAN 300 UNIT/3 ML VIAL SQ PRN (05:31)
--- NOTE | 2022-05-28 06:36 | NUR ---
PT RESTED WELL IN BETWEEN CARE; VS CHARTED; NO ACUTE DISTRESS; SUCTIONED ORALLY AND TRACHE SECRETIONS; DRESSING DONE AND PHOTOS TAKEN; CONTINUE TO MONITOR; CONTINUE PLAN OF CARE.
[2022-05-28 07:40] LABS: HEMATOCRIT 27.2 % (31.2-41.9); MEAN CORPUSCULAR HEMOGLOBIN 30.2 uug (24.7-32.8); MEAN CORPUSCULAR VOLUME 88.8 fL (75.5-95.3); PLATELET COUNT (AUTO) 236 K/uL (179-408)
[2022-05-28 07:41] VITALS: BP 145/96
--- NOTE | 2022-05-28 08:00 | NUR ---
PATIENT AWAKE WITH BOTH EYES OPEN BUT NO EYE CONTACT, NON-VERBAL WITH 6L VIA TRACH SATURATING 98%, SR/ST ON MONITOR, TEMP 98.1 ORALLY. ON CONTINUOUS TPN PER PHARMACY. WILL CONTINUE ERIC OBSERVATION. GT SITE MOIST AND RED ROUTINE DRESSING CHANGED DONE AND OBSERVE FOR FURTHER LEAK
[2022-05-28 08:24] LABS: CARBON DIOXIDE 24 mmol/L (21-32); CHLORIDE 107 mmol/L (98-107); CREATININE 0.4 mg/dL (0.6-1.3); GLUCOSE 105 mg/dL (74-106); MAGNESIUM 2.2 mg/dL (1.8-2.4); PHOSPHOROUS 3.9 mg/dL (2.5-4.9); POTASSIUM 3.9 mmol/L (3.5-5.1); TRIGLYCERIDES 446 MG/DL (30-150); UREA NITROGEN, BLOOD 23 mg/dL (7-18)
[2022-05-28] MEDS: levETIRAcetam 500 MG/5 ML LIQUID UDC GT SCH ×2 (08:31→20:55)
[2022-05-28] MEDS: BACLOFEN 10 MG TABLET GT SCH ×2 (08:32→20:55)
[2022-05-28] MEDS: TRAMADOL HCL 50 MG TABLET GT SCH ×2 (08:34→16:54)
[2022-05-28] MEDS: METOPROLOL TARTRATE 50 MG TABLET GT SCH ×2 (08:34→20:53)
[2022-05-28] MEDS: APIXABAN 2.5 MG TABLET GT SCH ×2 (08:35→20:52)
[2022-05-28] MEDS: PANTOPRAZOLE SODIUM 40 MG VIAL IV SCH (08:35)
[2022-05-28] MEDS: ASCORBIC ACID 500 MG TABLET GT SCH (08:36)
[2022-05-28] MEDS: PROTEIN SUPPLEMENT (PROSTAT) 30 ML LIQUID GT SCH ×3 (08:36→16:28)
[2022-05-28] MEDS: ZINC SULFATE 220 MG CAPSULE GT SCH (08:36)
[2022-05-28] MEDS: THERAHONEY GEL 1.5 OZ TUBE TOP SCH (08:37)
[2022-05-28] MEDS: SODIUM HYPOCHLORITE 0.125% (QUARTER STRENGTH) 473 ML BOTTLE TP SCH (08:38)
[2022-05-28] MEDS: KETOCONAZOLE 2% CREAM 30 GM TUBE TP SCH (08:38)
[2022-05-28] MEDS: AMANTADINE HCL 100 MG CAPSULE GT SCH (08:44)
[2022-05-28 11:32] VITALS: BP 143/93
--- NOTE | 2022-05-28 12:30 | NUR ---
SEEN BY HOSPITALIST AND SPOKE WITH GRANDPARENT AND DISCUSSED PLAN OF CARE. GRANDPARENT AGREED PLAN FOR J-TUBE PLACEMENT. STILL AWAITING FOR DR MAURICE FOR CONSULT
[2022-05-28] MEDS ORDERED: TPN BAG #7 IV SCH ×5 (13:00)
[2022-05-28 15:59] VITALS: BP 148/92
--- NOTE | 2022-05-28 18:03 | NUR ---
SEEN BY DR CISNEROS FOR INFECTIOUS FOLLOW-UP SEE NOTES. AWAITING J-TUBE PLACEMENT BY DR MAURICE. SR/ST ON MONITOR
--- NOTE | 2022-05-28 19:30 | NUR ---
Received Pt from Day Shift. Pt is awake, but is A&Ox0. Pt's eye movement is uncoordinated. Current vitals are BP: 148/74, T: 98.4, P: 114, RR: 20, and SpO2: 97%. ST on tele. Galdamez in place. Rectal tube in place. PICC line on TRINI w/ middle line not working. G-tube assessed: dressing is stable, and no leakage. Will continue to monitor.
[2022-05-28 20:00] VITALS: BP 148/74
[2022-05-28] MEDS: DOCUSATE SODIUM 100 MG/10 ML LIQUID UDC GT SCH (20:53)
[2022-05-28] MEDS: PHENOBARBITAL SODIUM 130 MG/1 ML DISP.SYRIN IV SCH (20:55)
[2022-05-28] MEDS: ACETAMINOPHEN 325 MG TABLET GT PRN (21:17)
[2022-05-29] VITALS: BP_SYST 137; BP_SYST 97; BP_DIAS 46; BP_DIAS 84
[2022-05-29] MEDS: BLOOD SUGAR DIAGNOSTIC 1 EACH STRIP VI SCH ×5 (00:28→23:32)
[2022-05-29 04:00] VITALS: BP 124/75
[2022-05-29 06:33] LABS: CARBON DIOXIDE 25 mmol/L (21-32); CHLORIDE 109 mmol/L (98-107); CREATININE 0.5 mg/dL (0.6-1.3); GLUCOSE 115 mg/dL (74-106); MAGNESIUM 2.2 mg/dL (1.8-2.4); PHOSPHOROUS 4.6 mg/dL (2.5-4.9); POTASSIUM 3.8 mmol/L (3.5-5.1); UREA NITROGEN, BLOOD 24 mg/dL (7-18)
--- NOTE | 2022-05-29 06:56 | NUR ---
End of Shift Note: Pt is A&Ox0 but is awake with no eye coordination. G-tube leakage has been stable thus far. Current vitals are BP: 124/75, T: 98.0 degrees, P: 111, RR: 18, SpO2: 97%. SR on tele. Pt is on 6L of O2 via T piece. On Pt's PICC line, the only valve out of the three that is currently working is the ann valve. Safety measures initiated. Call light within reach.
[2022-05-29 07:52] VITALS: BP 140/86
--- NOTE | 2022-05-29 08:00 | NUR ---
OPENS EYES MOST OF THE TIME BUT NO EYE CONTACT, OBSERVED FACIAL GRIMACING WHEN TURNING TO SIDES. REMAINS NPO WITH CONTINUOUS TPN PER PHARMACY AT 60 MLS/HR VIA PICC LINE. SR/ST. PATIENT SATURATION 98% ON 5L VIA TRACH
[2022-05-29] MEDS: BACLOFEN 10 MG TABLET GT SCH ×2 (08:56→20:13)
[2022-05-29] MEDS: ZINC SULFATE 220 MG CAPSULE GT SCH (08:56)
[2022-05-29] MEDS: PANTOPRAZOLE SODIUM 40 MG VIAL IV SCH (08:56)
[2022-05-29] MEDS: ASCORBIC ACID 500 MG TABLET GT SCH (08:56)
[2022-05-29] MEDS: levETIRAcetam 500 MG/5 ML LIQUID UDC GT SCH ×2 (08:56→20:10)
[2022-05-29] MEDS: TRAMADOL HCL 50 MG TABLET GT SCH ×2 (08:57→17:31)
[2022-05-29] MEDS: APIXABAN 2.5 MG TABLET GT SCH (08:57)
[2022-05-29] MEDS: METOPROLOL TARTRATE 50 MG TABLET GT SCH ×2 (08:58→20:13)
[2022-05-29] MEDS: PROTEIN SUPPLEMENT (PROSTAT) 30 ML LIQUID GT SCH ×3 (08:59→17:31)
[2022-05-29] MEDS: THERAHONEY GEL 1.5 OZ TUBE TOP SCH (08:59)
[2022-05-29] MEDS: SODIUM HYPOCHLORITE 0.125% (QUARTER STRENGTH) 473 ML BOTTLE TP SCH (08:59)
[2022-05-29] MEDS: AMANTADINE HCL 100 MG CAPSULE GT SCH (09:00)
[2022-05-29] MEDS: KETOCONAZOLE 2% CREAM 30 GM TUBE TP SCH (09:00)
[2022-05-29 11:47] VITALS: BP 125/89
--- NOTE | 2022-05-29 12:00 | NUR ---
SEEN BY PROPERTY APPRAISER AND HOSPITALIST SEE NOTES, NO ACUTE CHANGE FROM MORNING ASSESSMENT. SR ON MONITOR AFEBRILE
[2022-05-29] MEDS ORDERED: TPN BAG #8 IV SCH ×8 (13:00)
[2022-05-29 15:19] VITALS: BP_SYST 83
--- NOTE | 2022-05-29 16:23 | NUR ---
ROUTINE WOUND CARE DONE ORDERED, TURN Q2HRS TOLERATED. CONTINUE ERIC MONITORING ORDERED. SR/ST ON MONITOR
--- NOTE | 2022-05-29 19:05 | NUR ---
Pt is A&Ox0 but is awake with no eye coordination. G-tube leakage has been stable thus far. 6L of O2 via T-piece. Only ann tube of PICC line is working. Pt on TPN at 60 mL/hr. Pt ordered to have a midline insertion coming tonight. Will continue to monitor.
--- NOTE | 2022-05-29 19:25 | NUR ---
Informed Dr Greenfield that patient PICC line, 2 lumen non-functioning. Obtained order for Midline. Order noted and verify. Informed Sales Department Clerk Morro and also informed [place] PICC line nurse.
[2022-05-29 20:00] VITALS: BP 130/78
[2022-05-29] MEDS: HEPARIN SODIUM,PORCINE 5,000 UNITS/ML VIAL SQ SCH (20:08)
[2022-05-29] MEDS: PHENOBARBITAL SODIUM 130 MG/1 ML DISP.SYRIN IV SCH (20:12)
[2022-05-29] MEDS: DOCUSATE SODIUM 100 MG/10 ML LIQUID UDC GT SCH (20:13)
[2022-05-30] VITALS (7 sets, daily range): BP systolic 129–148; BP diastolic 40–87
--- NOTE | 2022-05-30 01:00 | NUR ---
Telephone call to patient Anastasiya Mccall and obtained telephone consent to place new PICC line. Consent witnessed by TEDDY Liao.
--- NOTE | 2022-05-30 01:05 | NUR ---
Morro ESPINAL (PICC line) nurse arrived to insert PICC line.
--- NOTE | 2022-05-30 01:35 | NUR ---
New PICC line on right upper arm with double lumen in place. PICC line on left upper arm discontinued by TEDDY Hooker.
[2022-05-30] MEDS: BLOOD SUGAR DIAGNOSTIC 1 EACH STRIP VI SCH ×3 (05:37→17:49)
--- NOTE | 2022-05-30 06:15 | NUR ---
End of Shift Note: Pt is A&Ox0 but is awake with no eye coordination. G-tube leakage has been stable thus far. Current vitals are BP: 140/74, T: 98.0 degrees, P: 105, RR: 18, and SPO2: 98%. Removed PICC line from TRINI and inserted double lumen PICC line on MICHAELA. SR curently on tele. Safety measures initiated. Call light within reach. Addendum: 05/30/22 at 0626 by ANABELLE SPEAR RN Pt on 6L of O2. Dressings for G-tube changed.
[2022-05-30 06:42] LABS: MEAN CORPUSCULAR HEMOGLOBIN 29.8 uug (24.7-32.8); MEAN CORPUSCULAR VOLUME 90.1 fL (75.5-95.3); PLATELET COUNT (AUTO) 239 K/uL (179-408)
[2022-05-30 06:51] LABS: CARBON DIOXIDE 24 mmol/L (21-32); CHLORIDE 108 mmol/L (98-107); CREATININE 0.5 mg/dL (0.6-1.3); GLUCOSE 117 mg/dL (74-106); PHOSPHOROUS 4.6 mg/dL (2.5-4.9); TRIGLYCERIDES 414 MG/DL (30-150); UREA NITROGEN, BLOOD 27 mg/dL (7-18)
--- NOTE | 2022-05-30 08:00 | NUR ---
OPENS EYES WITH FACIAL GRIMACING NOTED BUT NO EYE CONTACT, NO SS OF DISTRESS SR/ST ON MONITOR. ON TPN TILL FURTHER ORDER. AWAITING JT PLACEMENT. CONTINUE WOUND CARE ORDERED. GT STILL LEAKING MINIMAL AMOUNT OF YELLOW DRAINAGE
[2022-05-30] MEDS: levETIRAcetam 500 MG/5 ML LIQUID UDC GT SCH ×2 (08:58→20:38)
[2022-05-30] MEDS: PANTOPRAZOLE SODIUM 40 MG VIAL IV SCH (08:58)
[2022-05-30] MEDS: HEPARIN SODIUM,PORCINE 5,000 UNITS/ML VIAL SQ SCH ×2 (08:58→20:40)
[2022-05-30] MEDS: ASCORBIC ACID 500 MG TABLET GT SCH (08:58)
[2022-05-30] MEDS: TRAMADOL HCL 50 MG TABLET GT SCH ×2 (08:59→17:35)
[2022-05-30] MEDS: METOPROLOL TARTRATE 50 MG TABLET GT SCH ×2 (08:59→20:39)
[2022-05-30] MEDS: ZINC SULFATE 220 MG CAPSULE GT SCH (08:59)
[2022-05-30] MEDS: BACLOFEN 10 MG TABLET GT SCH ×2 (08:59→20:39)
[2022-05-30] MEDS: THERAHONEY GEL 1.5 OZ TUBE TOP SCH (09:00)
[2022-05-30] MEDS: PROTEIN SUPPLEMENT (PROSTAT) 30 ML LIQUID GT SCH ×3 (09:00→17:36)
[2022-05-30] MEDS: SODIUM HYPOCHLORITE 0.125% (QUARTER STRENGTH) 473 ML BOTTLE TP SCH (09:01)
[2022-05-30] MEDS: REMEDY ESSENTIAL ZINC PASTE 113 GM TP PRN (09:02)
[2022-05-30] MEDS: KETOCONAZOLE 2% CREAM 30 GM TUBE TP SCH (09:02)
[2022-05-30] MEDS: AMANTADINE HCL 100 MG CAPSULE GT SCH (09:05)
--- NOTE | 2022-05-30 12:00 | NUR ---
NO ACUTE CHANGE FROM MORNING ASSESSMENT
[2022-05-30] MEDS ORDERED: TPN BAG #9 IV SCH ×6 (13:00)
[2022-05-30] MEDS: CLONIDINE-TTS 1 PATCH TD SCH (13:48)
[2022-05-30] MEDS: ACETAMINOPHEN 325 MG TABLET GT PRN (17:35)
--- NOTE | 2022-05-30 18:13 | NUR ---
PLAN FOR JT PLACEMENT FOR THURSDAY UNDER DR MAURICE. FREDERIC ([facility]) MADE AWARE. KEPT NPO AND CONTINUE WITH TPN ORDERED. SR ST ON MONITOR
--- NOTE | 2022-05-30 19:30 | NUR ---
Received patient lying in bed. Alert, but non-verbal, unable to track. In no apparent distress. No signs or symptoms of pain or SOB. PICC line on right upper arm intact and patent. TPN infusing. NSR on tele with HR of 75/min. Galdamez catheter intact and draining via gravity. Rectal tube intact. Needs assessed and anticipated to. Safety measure initiated. Continue to monitor.
[2022-05-30] MEDS: DOCUSATE SODIUM 100 MG/10 ML LIQUID UDC GT SCH (20:38)
[2022-05-30] MEDS: PHENOBARBITAL SODIUM 130 MG/1 ML DISP.SYRIN IV SCH (20:48)
[2022-05-31] VITALS (7 sets, daily range): BP systolic 128–149; BP diastolic 40–97
[2022-05-31] MEDS: BLOOD SUGAR DIAGNOSTIC 1 EACH STRIP VI SCH ×5 (00:11→23:58)
--- NOTE | 2022-05-31 04:47 | NUR ---
Appears calm and comfortable the whole shift. In no acute distress. Suction secretions PRN and able to obtain small amount of thin secretions. TPN well tolerated. NSR tele on tele with HR of 93/min. Galdamez catheter draining well. Rectal tube intact with minimal stool present. GT site with minimal drainage. Dressing changed.
[2022-05-31 06:32] LABS: HEMATOCRIT 31.7 % (31.2-41.9); MEAN CORPUSCULAR HEMOGLOBIN 29.1 uug (24.7-32.8); MEAN CORPUSCULAR VOLUME 88.7 fL (75.5-95.3); PLATELET COUNT (AUTO) 213 K/uL (179-408)
[2022-05-31 06:48] LABS: CARBON DIOXIDE 25 mmol/L (21-32); CHLORIDE 109 mmol/L (98-107); CREATININE 0.4 mg/dL (0.6-1.3); GLUCOSE 111 mg/dL (74-106); PHOSPHOROUS 4.4 mg/dL (2.5-4.9); POTASSIUM 3.6 mmol/L (3.5-5.1); UREA NITROGEN, BLOOD 24 mg/dL (7-18)
[2022-05-31] MEDS ORDERED: TPN BAG #10 IV SCH ×12 (08:00→13:00)
--- NOTE | 2022-05-31 08:00 | NUR ---
report received from drupal architect RN, pt paraplegic with upper arms contracted, with diagnosis of sepsis. Pt is a/ox1, pressure wounds on the sacrum, buttocks, g tube in place with reports of minimal leaking from site last night. bed low and locked, will continue to monitor.
[2022-05-31] MEDS: BACLOFEN 10 MG TABLET GT SCH ×2 (09:11→20:56)
[2022-05-31] MEDS: TRAMADOL HCL 50 MG TABLET GT SCH ×2 (09:11→17:16)
[2022-05-31] MEDS: ASCORBIC ACID 500 MG TABLET GT SCH (09:11)
[2022-05-31] MEDS: METOPROLOL TARTRATE 50 MG TABLET GT SCH ×2 (09:11→20:57)
[2022-05-31] MEDS: AMANTADINE HCL 100 MG CAPSULE GT SCH (09:14)
[2022-05-31] MEDS: SODIUM HYPOCHLORITE 0.125% (QUARTER STRENGTH) 473 ML BOTTLE TP SCH (09:15)
[2022-05-31] MEDS: KETOCONAZOLE 2% CREAM 30 GM TUBE TP SCH (09:15)
[2022-05-31] MEDS: THERAHONEY GEL 1.5 OZ TUBE TOP SCH (09:16)
[2022-05-31] MEDS: levETIRAcetam 500 MG/5 ML LIQUID UDC GT SCH ×2 (09:17→20:56)
[2022-05-31] MEDS: PROTEIN SUPPLEMENT (PROSTAT) 30 ML LIQUID GT SCH ×3 (09:17→17:16)
[2022-05-31] MEDS: ZINC SULFATE 220 MG CAPSULE GT SCH (09:25)
[2022-05-31] MEDS: HEPARIN SODIUM,PORCINE 5,000 UNITS/ML VIAL SQ SCH ×2 (09:25→20:57)
[2022-05-31] MEDS: PANTOPRAZOLE SODIUM 40 MG VIAL IV SCH (09:25)
--- NOTE | 2022-05-31 15:17 | NUR ---
would care completed, spoke with family, all questions and concerns answered.
--- NOTE | 2022-05-31 16:00 | NUR ---
wound care complete, will continue to monitor pt
[2022-05-31] MEDS: ACETAMINOPHEN 325 MG TABLET GT PRN (17:16)
--- NOTE | 2022-05-31 19:03 | NUR ---
pt resting in bed, comfortably. all medications given as prescribed. will endorse to oncoming nurse
--- NOTE | 2022-05-31 19:30 | NUR ---
Endorsed by Day shift RN that patient's Galdamez catheter was leaking today. Change Galdamez catheter with FR16 with 10cc balloon. Draining well at this time.
[2022-05-31] MEDS: DOCUSATE SODIUM 100 MG/10 ML LIQUID UDC GT SCH (20:56)
[2022-05-31] MEDS: PHENOBARBITAL SODIUM 130 MG/1 ML DISP.SYRIN IV SCH (20:57)
[2022-06-01] VITALS: BP 135/83
[2022-06-01] MEDS: INSULIN REGULAR, HUMAN 300 UNIT/3 ML VIAL SQ PRN ×2 (00:02→12:02)
[2022-06-01] MEDS: BLOOD SUGAR DIAGNOSTIC 1 EACH STRIP VI SCH ×5 (00:02→23:21)
[2022-06-01 04:35] VITALS: BP 145/90
[2022-06-01 06:39] LABS: CARBON DIOXIDE 25 mmol/L (21-32); CHLORIDE 109 mmol/L (98-107); CREATININE 0.5 mg/dL (0.6-1.3); GLUCOSE 127 mg/dL (74-106); MAGNESIUM 2.2 mg/dL (1.8-2.4); PHOSPHOROUS 4.5 mg/dL (2.5-4.9); POTASSIUM 3.9 mmol/L (3.5-5.1); TRIGLYCERIDES 383 MG/DL (30-150); UREA NITROGEN, BLOOD 32 mg/dL (7-18)
--- NOTE | 2022-06-01 06:52 | NUR ---
Afebrile at this time. In no acute distress. TPN well tolerated. GT site no leakage noted. F/C intact and draining via gravity. No leakage noted. Rectal tube remains in place.
[2022-06-01] MEDS: PROTEIN SUPPLEMENT (PROSTAT) 30 ML LIQUID GT SCH ×3 (09:00→16:17)
[2022-06-01] MEDS: ASCORBIC ACID 500 MG TABLET GT SCH (09:20)
[2022-06-01] MEDS: ZINC SULFATE 220 MG CAPSULE GT SCH (09:20)
[2022-06-01] MEDS: BACLOFEN 10 MG TABLET GT SCH ×2 (09:23→20:23)
[2022-06-01] MEDS: TRAMADOL HCL 50 MG TABLET GT SCH ×2 (09:24→16:17)
[2022-06-01] MEDS: AMANTADINE HCL 100 MG CAPSULE GT SCH (09:24)
[2022-06-01] MEDS: METOPROLOL TARTRATE 50 MG TABLET GT SCH ×2 (09:28→20:25)
[2022-06-01] MEDS: levETIRAcetam 500 MG/5 ML LIQUID UDC GT SCH ×2 (09:29→20:23)
[2022-06-01] MEDS: PANTOPRAZOLE SODIUM 40 MG VIAL IV SCH (09:31)
[2022-06-01] MEDS: THERAHONEY GEL 1.5 OZ TUBE TOP SCH (09:32)
[2022-06-01] MEDS: KETOCONAZOLE 2% CREAM 30 GM TUBE TP SCH (09:33)
[2022-06-01] MEDS: SODIUM HYPOCHLORITE 0.125% (QUARTER STRENGTH) 473 ML BOTTLE TP SCH (09:33)
[2022-06-01] MEDS: HEPARIN SODIUM,PORCINE 5,000 UNITS/ML VIAL SQ SCH ×2 (10:38→20:26)
[2022-06-01 12:00] VITALS: BP 147/85
[2022-06-01] MEDS ORDERED: TPN BAG #11 IV SCH ×5 (13:00)
--- NOTE | 2022-06-01 13:58 | NUR ---
Received patient lying in bed asleep. No signs or symptoms of pain or SOB. PICC line on right upper arm intact and patent. TPN infusing at 60mls/hr. NSR on tele with HR of 88/min. Galdamez catheter intact and draining via gravity. Rectal tube intact and draining. Bed in lowest position and bed alarm on with side rails up x4. Will continue to monitor. Addendum: 06/01/22 at 1405 by RASHAWN DUQUE RN Noted at 0710
--- NOTE | 2022-06-01 14:24 | NUR ---
patient received in bed, eyes open, trach collar, on 6 liters o2, PICC line intact to right upper arm, flushes well, patent, g-tube intact, in place, dressing intact to g-tube site, patient is on monitor, sinus tachy with HR of 107 at this time, saturating at 98%. no acute distress noted, patient is changed, cleaned and repositioned. Addendum: 06/01/22 at 1433 by SELVIN GARDNER RN, RN rivas is intact, draining yellow color urine
[2022-06-01 16:27] VITALS: BP 129/86
--- NOTE | 2022-06-01 18:45 | NUR ---
patient is sleeping comfortably at this time, endorsed to next shift, no acute distress noted, saturating at 98%, pulse 77, Galdamez intact draining yellow color urine, g-tube intact, in place, continuous TPN as ordered.
[2022-06-01 20:00] VITALS: BP 139/92
[2022-06-01] MEDS: DOCUSATE SODIUM 100 MG/10 ML LIQUID UDC GT SCH (20:22)
[2022-06-01] MEDS: PHENOBARBITAL SODIUM 130 MG/1 ML DISP.SYRIN IV SCH (20:25)
[2022-06-02 04:00] VITALS: BP 128/92
[2022-06-02] MEDS: BLOOD SUGAR DIAGNOSTIC 1 EACH STRIP VI SCH ×3 (06:18→18:56)
--- NOTE | 2022-06-02 06:36 | NUR ---
Shift End Report: No significant event reported all night. Suctioned PRN by RN/RT, tolerated well. All needs attended and met. Heparin held as ordered for JT placement this afternoon. Continue care as planned.
[2022-06-02 06:54] LABS: CARBON DIOXIDE 24 mmol/L (21-32); CHLORIDE 107 mmol/L (98-107); CREATININE 0.5 mg/dL (0.6-1.3); GLUCOSE 115 mg/dL (74-106); MAGNESIUM 2.1 mg/dL (1.8-2.4); PHOSPHOROUS 4.6 mg/dL (2.5-4.9); POTASSIUM 3.7 mmol/L (3.5-5.1); TRIGLYCERIDES 368 MG/DL (30-150); UREA NITROGEN, BLOOD 29 mg/dL (7-18)
[2022-06-02] MEDS: SODIUM HYPOCHLORITE 0.125% (QUARTER STRENGTH) 473 ML BOTTLE TP SCH (09:00)
[2022-06-02] MEDS: THERAHONEY GEL 1.5 OZ TUBE TOP SCH (09:00)
[2022-06-02] MEDS: KETOCONAZOLE 2% CREAM 30 GM TUBE TP SCH (09:00)
[2022-06-02] MEDS ORDERED: LIDOCAINE 1%-EPI 1:100,000 20 ML VIAL IJ ONE (09:00)
[2022-06-02] MEDS: PROTEIN SUPPLEMENT (PROSTAT) 30 ML LIQUID GT SCH ×3 (09:00→17:00)
[2022-06-02] MEDS ORDERED: SILVER NITRATE APPLICATOR STICK EACH TP ONE (09:00)
[2022-06-02] MEDS: HEPARIN SODIUM,PORCINE 5,000 UNITS/ML VIAL SQ SCH ×2 (09:00→20:26)
--- NOTE | 2022-06-02 09:50 | NUR ---
CALLED FREDERIC PT'S GRANDMOTHER'S, CELL PHONE AT [phone] TO INFORM HER THAT THE ANESTHESIOLOGIST, DR. FOREMAN, WILL BE CALLING HER AROUND 1:30-2PM TO GET CONSENT FOR SHILPI'S PROCEDURE TODAY. FREDERIC VERBALIZED UNDERSTANDING AND WILL HAVE HER PHONE ON AT THAT TIME.
[2022-06-02] MEDS: levETIRAcetam 500 MG/5 ML LIQUID UDC GT SCH ×2 (09:56→20:25)
[2022-06-02] MEDS: PANTOPRAZOLE SODIUM 40 MG VIAL IV SCH (09:56)
[2022-06-02] MEDS: METOPROLOL TARTRATE 50 MG TABLET GT SCH ×2 (09:58→20:25)
[2022-06-02] MEDS: TRAMADOL HCL 50 MG TABLET GT SCH ×2 (09:59→17:00)
[2022-06-02] MEDS: ASCORBIC ACID 500 MG TABLET GT SCH (09:59)
--- NOTE | 2022-06-02 10:04 | NUR ---
PT'S FATHER, ANTHONY NEWBERRY, CALLED AND I SPOKE WITH HIM RE: PT SURGERY TODAY. HE STATED THAT HE IS OK WITH PT'S GRANDMOTHER SIGNING THE CONSENT. HE DOES WANT TO SPEAK WITH DR. YONI MAURICE, THE SURGEON PERFORMING THE J-TUBE PLACEMENT, TO DISCUSS HOW REVERSIBLE IT IS. FATHER STATES THAT PT WAS TALKING AND EATING PRIOR TO COVID AND THAT SHE "FELL THROUGH THE CRACKS" AT [facility]. HE IS HOPING THAT THE PT COULD GO BACK TO SWALLOWING, EATING AND TALKING. REASSURANCE PROVIDED AND TOLD HIM TO CONTACT DR. MAURICE AT [phone] TO GET HIS QUESTIONS ANSWERED. HE WOULD ALSO LIKE TO FACETIME THE PT IF POSSIBLE. HIS NUMBER IS [phone]. WILL CONTACT NURSING DICE SPOTTER TO SEE IF WE HAVE A N IPAD FOR US TO FACETIME HIM.
[2022-06-02] MEDS: ZINC SULFATE 220 MG CAPSULE GT SCH (10:05)
[2022-06-02] MEDS: AMANTADINE HCL 100 MG CAPSULE GT SCH (10:06)
[2022-06-02] MEDS: BACLOFEN 10 MG TABLET GT SCH ×2 (10:06→20:25)
[2022-06-02 12:15] VITALS: BP 145/90
[2022-06-02] MEDS ORDERED: IV FAT EMULSIONS 20% 250 ML IV ONE ×2 (13:00)
[2022-06-02] MEDS ORDERED: TPN BAG #12 IV SCH ×14 (13:00→15:45)
[2022-06-02] MEDS ORDERED: ROCURONIUM BROMIDE 50 MG/5 ML VIAL ONE (14:30)
--- NOTE | 2022-06-02 14:50 | NUR ---
Pt got picked up by OR nurses and RT for her surgery (J-tube placement) at 14:45. Patient had no signs or symptoms of pain or distress. Dressings and diaper changed prior leaving for her surgery.
[2022-06-02] MEDS ORDERED: BUPIVACAINE/EPI PF 0.5% 10 ML VIAL ONE (15:28)
[2022-06-02] MEDS ORDERED: LIDOCAINE HCL 1% 20 ML VIAL ONE (15:28)
[2022-06-02] MEDS ORDERED: FENTANYL CITRATE 100 MCG/2 ML AMPUL ONE (15:29)
[2022-06-02] MEDS ORDERED: NEOSTIGMINE METHYLSULFATE 10 MG/10 ML VIAL ONE (16:31)
[2022-06-02] MEDS ORDERED: DEXAMETHASONE SOD PHOSPHATE 4 MG INJ ONE (16:31)
[2022-06-02] MEDS ORDERED: GLYCOPYRROLATE 0.2 MG/ML VIAL ONE (16:31)
[2022-06-02] MEDS ORDERED: CEFAZOLIN 1 G VIAL ONE (16:31)
[2022-06-02] MEDS ORDERED: ONDANSETRON 4 MG/2 ML VIAL ONE (16:31)
[2022-06-02] MEDS: INSULIN REGULAR, HUMAN 300 UNIT/3 ML VIAL SQ PRN (18:58)
[2022-06-02 20:00] VITALS: BP 132/73
[2022-06-02] MEDS: PHENOBARBITAL SODIUM 130 MG/1 ML DISP.SYRIN IV SCH (20:25)
[2022-06-02] MEDS: DOCUSATE SODIUM 100 MG/10 ML LIQUID UDC GT SCH (20:25)
[2022-06-03] MEDS: BLOOD SUGAR DIAGNOSTIC 1 EACH STRIP VI SCH ×5 (00:05→23:47)
[2022-06-03] MEDS: INSULIN REGULAR, HUMAN 300 UNIT/3 ML VIAL SQ PRN (00:06)
[2022-06-03 04:00] VITALS: BP 119/80
[2022-06-03] MEDS: ACETAMINOPHEN 325 MG TABLET GT PRN ×2 (04:06→20:34)
[2022-06-03 07:24] LABS: HEMATOCRIT 26.3 % (31.2-41.9); MEAN CORPUSCULAR HEMOGLOBIN 29.7 uug (24.7-32.8); MEAN CORPUSCULAR VOLUME 88.4 fL (75.5-95.3); PLATELET COUNT (AUTO) 236 K/uL (179-408)
[2022-06-03 07:58] LABS: CARBON DIOXIDE 25 mmol/L (21-32); CHLORIDE 108 mmol/L (98-107); CREATININE 0.5 mg/dL (0.6-1.3); GLUCOSE 109 mg/dL (74-106); MAGNESIUM 2.2 mg/dL (1.8-2.4); PHOSPHOROUS 4.3 mg/dL (2.5-4.9); POTASSIUM 3.5 mmol/L (3.5-5.1); UREA NITROGEN, BLOOD 29 mg/dL (7-18)
[2022-06-03] MEDS: THERAHONEY GEL 1.5 OZ TUBE TOP SCH (09:00)
[2022-06-03] MEDS: SODIUM HYPOCHLORITE 0.125% (QUARTER STRENGTH) 473 ML BOTTLE TP SCH (09:00)
[2022-06-03] MEDS: PROTEIN SUPPLEMENT (PROSTAT) 30 ML LIQUID GT SCH ×3 (09:00→17:00)
[2022-06-03] MEDS: KETOCONAZOLE 2% CREAM 30 GM TUBE TP SCH (09:00)
[2022-06-03] MEDS: ZINC SULFATE 220 MG CAPSULE GT SCH (09:28)
[2022-06-03] MEDS: TRAMADOL HCL 50 MG TABLET GT SCH ×2 (09:28→17:00)
[2022-06-03] MEDS: ASCORBIC ACID 500 MG TABLET GT SCH (09:28)
[2022-06-03] MEDS: BACLOFEN 10 MG TABLET GT SCH ×2 (09:29→20:28)
[2022-06-03] MEDS: METOPROLOL TARTRATE 50 MG TABLET GT SCH ×2 (09:32→20:41)
[2022-06-03] MEDS: levETIRAcetam 500 MG/5 ML LIQUID UDC GT SCH ×2 (09:33→20:29)
[2022-06-03] MEDS: PANTOPRAZOLE SODIUM 40 MG VIAL IV SCH (09:33)
[2022-06-03] MEDS: HEPARIN SODIUM,PORCINE 5,000 UNITS/ML VIAL SQ SCH ×2 (09:34→20:39)
[2022-06-03] MEDS: AMANTADINE HCL 100 MG CAPSULE GT SCH (09:36)
[2022-06-03 11:42] VITALS: BP 134/87
[2022-06-03] MEDS ORDERED: TPN IV SCH ×5 (13:00)
--- NOTE | 2022-06-03 14:26 | NUR ---
Today I administered Prostat to the patient through her J tube that was placed yesterday. I noticed Prostat was coming out of the patient's mouth. Mario Underwood is aware of it.
[2022-06-03] MEDS ORDERED: DIATR MEGLU/DIATRIZOATE SODIUM 30 ML BOTTLE ONE (15:05)
--- NOTE | 2022-06-03 15:20 | NUR ---
Just injected Gastrografin to the patient's J tube. The results will be ready in the next hour per tech.
[2022-06-03 15:45] VITALS: BP 142/84
--- NOTE | 2022-06-03 16:54 | NUR ---
Noticed today that the patient has leaking through her G tube orange-brownish fluid. Mario Underwood is aware. Per him, keep her NPO and not start J tube feeding for now. surgery has to address it first. Called surgery no answer yet.
--- NOTE | 2022-06-03 17:48 | NUR ---
Spoke to Dr Garsia over the phone, he said to connect G tube to the low intermittent suction for now.
--- NOTE | 2022-06-03 19:38 | NUR ---
Received patient laying in bed comfortably. No signs of distress or pain noted at this time. Is on 6L O2 trach collar. MICHAELA PICC line is intact and patent, running TPN at 60cc/hr. G-tube is clamped as per orders to not use. J-tube is functioning with no signs of complications at this moment. No feeding to be given until further assessment is made. Galdamez is clean and intact. BM are liquid and brown. Oral care and suctioning are provided as needed. Plan of care are to be followed. Safety and comfort measures enforced.
[2022-06-03] MEDS: DOCUSATE SODIUM 100 MG/10 ML LIQUID UDC GT SCH (20:28)
[2022-06-03] MEDS: PHENOBARBITAL SODIUM 130 MG/1 ML DISP.SYRIN IV SCH (20:36)
--- NOTE | 2022-06-03 22:12 | NUR ---
Patient had a temperature of 102.5 F and administered Tylenol 650mg at 2033. Reassessed temperature measured was 98.5F. Non-pharmacological interventions were provided in addition.
[2022-06-04 00:35] VITALS: BP 129/85
[2022-06-04] MEDS: ACETAMINOPHEN 325 MG TABLET GT PRN ×2 (03:45→15:30)
[2022-06-04] MEDS: INSULIN REGULAR, HUMAN 300 UNIT/3 ML VIAL SQ PRN ×2 (05:34→12:34)
[2022-06-04] MEDS: BLOOD SUGAR DIAGNOSTIC 1 EACH STRIP VI SCH ×3 (05:35→17:50)
[2022-06-04 07:13] LABS: HEMATOCRIT 28.5 % (31.2-41.9); MEAN CORPUSCULAR HEMOGLOBIN 29.6 uug (24.7-32.8); MEAN CORPUSCULAR VOLUME 87.8 fL (75.5-95.3); PLATELET COUNT (AUTO) 242 K/uL (179-408)
[2022-06-04 07:27] LABS: CARBON DIOXIDE 23 mmol/L (21-32); CHLORIDE 110 mmol/L (98-107); CREATININE 0.5 mg/dL (0.6-1.3); GLUCOSE 125 mg/dL (74-106); MAGNESIUM 2.1 mg/dL (1.8-2.4); PHOSPHOROUS 3.7 mg/dL (2.5-4.9); POTASSIUM 3.5 mmol/L (3.5-5.1); TRIGLYCERIDES 346 MG/DL (30-150); UREA NITROGEN, BLOOD 30 mg/dL (7-18)
--- NOTE | 2022-06-04 07:44 | NUR ---
Patient rested intermittently okay throughout the night. No signs of distress or pain noted at this time. TPN continues to be running on MICHAELA PICC line at 60cc/hr. Provided oral care and suctioned as needed. Is ST on tele monitor, HR 127.
--- NOTE | 2022-06-04 08:00 | NUR ---
PATIENT REMAINS NON-VERBAL, EYES OPEN BUT NO EYE CONTACT, WARM AND DRY TO TOUCH. TEMP 97.8 ORALLY, ST ON MONITOR 123, NO SS OF PAIN OR DISTRESS WITH 6L VIA TRACH SATURATING 95%, CONTINUOUS TPN VIA PICC LINE. REQUIRES FREQUENT ORAL AND TRACHEAL SUCTIONING. GOOD ORAL CARE DONE. SR/ST ON MONITOR
[2022-06-04] MEDS: ASCORBIC ACID 500 MG TABLET GT SCH (09:00)
[2022-06-04] MEDS: PROTEIN SUPPLEMENT (PROSTAT) 30 ML LIQUID GT SCH ×3 (09:00→16:03)
[2022-06-04] MEDS: BACLOFEN 10 MG TABLET GT SCH ×2 (09:00→20:37)
[2022-06-04] MEDS: ZINC SULFATE 220 MG CAPSULE GT SCH (09:00)
[2022-06-04] MEDS: TRAMADOL HCL 50 MG TABLET GT SCH ×2 (09:00→16:03)
[2022-06-04] MEDS: AMANTADINE HCL 100 MG CAPSULE GT SCH (09:00)
[2022-06-04] MEDS: ONDANSETRON 4 MG/2 ML VIAL IV PRN (10:15)
[2022-06-04] MEDS: PANTOPRAZOLE SODIUM 40 MG VIAL IV SCH (10:15)
[2022-06-04] MEDS: HEPARIN SODIUM,PORCINE 5,000 UNITS/ML VIAL SQ SCH ×2 (10:16→20:26)
[2022-06-04] MEDS: SODIUM HYPOCHLORITE 0.125% (QUARTER STRENGTH) 473 ML BOTTLE TP SCH (10:17)
[2022-06-04] MEDS: KETOCONAZOLE 2% CREAM 30 GM TUBE TP SCH (10:17)
[2022-06-04] MEDS: THERAHONEY GEL 1.5 OZ TUBE TOP SCH (10:17)
[2022-06-04 11:42] VITALS: BP 146/92
--- NOTE | 2022-06-04 12:00 | NUR ---
CONTINUE WITH ERIC MONITORING. LOPRESSOR PRN GIVEN FOR HR 145/MIN. OBSERVED
[2022-06-04] MEDS ORDERED: TPN BAG #14 IV SCH ×5 (13:00)
[2022-06-04] MEDS ORDERED: IV FAT EMULSIONS 20% 250 ML IV ONE (13:00)
--- NOTE | 2022-06-04 15:30 | NUR ---
TEMP 101.[address] CISNEROS MADE AWARE AND SAID WILL START ON ANTIBIOTIC. TYLENOL SUPPOSITORY GIVEN. OBSRVED
[2022-06-04 15:52] VITALS: BP 142/80
[2022-06-04] MEDS: levoFLOXacin 500 MG/D5W 500 MG in PREMIXED 1 EACH IV SCH (17:13)
[2022-06-04 18:01] LABS: *BLOOD, URINE 1+ (NEGATIVE); *COLOR,URINE YELLOW (YELLOW); *KETONES,URINE NEGATIVE (NEGATIVE); LEUKOCYTE ESTERASE ,URINE 1+ (NEGATIVE); NITRITE, URINE POSITIVE (NEGATIVE); PH,URINE 8.5 (5.0-8.0); UGLUCOSE NEGATIVE (NEGATIVE)
[2022-06-04 18:15] LABS: *BILIRUBIN,URIN 1+ (NEGATIVE)
[2022-06-04 18:16] LABS: *CLARITY,URINE SLIGHTLY CLOUDY (CLEAR)
[2022-06-04 18:20] LABS: BACTERIA,URINE MANY /HPF (NONE SEEN); SQUAMOUS EPITHELIAL CELL,UR MODERATE /HPF (NONE SEEN)
[2022-06-04] MEDS: VANCOMYCIN IV 1,000 MG in IV DEXTROSE 5% 250 ML IV SCH (18:56)
--- NOTE | 2022-06-04 19:15 | NUR ---
Received patient lying in bed. Eyes open. In no apparent distress. Trach in place. GT and JT tube intact. GT attached to suction. Surgical incision sites with steri strip in place. Noted with fluid filled blister on incision site lower mid abdominal area. PICC line on right upper arm intact and patent. Lipid and TPN infusing as well as Vancomycin IV. Patient HR up to 149. Will give Metoprolol IV per order. Galdamez catheter intact and draining via gravity. Rectal tube intact. Temp. 100.4. Cooling measure provided. Continue to monitor.
[2022-06-04] MEDS: METOPROLOL TARTRATE 5 MG/5 ML VIAL IVP PRN (19:21)
[2022-06-04 19:37] VITALS: BP 138/87
[2022-06-04 20:08] VITALS: BP 130/87
[2022-06-04] MEDS: PHENOBARBITAL SODIUM 130 MG/1 ML DISP.SYRIN IV SCH (20:26)
[2022-06-04] MEDS: DOCUSATE SODIUM 100 MG/10 ML LIQUID UDC GT SCH (20:37)
[2022-06-04] MEDS: GENTAMICIN SULFATE INJ 120 MG in IV DEXTROSE 5% 100 ML IV SCH (20:55)
[2022-06-05] VITALS (8 sets, daily range): BP systolic 115–160; BP diastolic 60–96
[2022-06-05] MEDS: BLOOD SUGAR DIAGNOSTIC 1 EACH STRIP VI SCH ×4 (00:10→18:00)
[2022-06-05] MEDS: VANCOMYCIN IV 1,000 MG in IV DEXTROSE 5% 250 ML IV SCH (01:40)
[2022-06-05] MEDS: GENTAMICIN SULFATE INJ 120 MG in IV DEXTROSE 5% 100 ML IV SCH (04:12)
[2022-06-05] MEDS: METOPROLOL TARTRATE 5 MG/5 ML VIAL IVP PRN ×2 (05:01→16:15)
--- NOTE | 2022-06-05 05:32 | NUR ---
Patient appears comfortable in bed. Afebrile. Latest temp 99.3 orally. Suction secretions PRN. No drainage noted on GT and JT site. Sinus tachy on tele with HR of 113. No adverse reaction noted from IV antibiotics. FC and rectal tube remains intact and patent.
[2022-06-05] MEDS ORDERED: SILVER NITRATE APPLICATOR STICK EACH TP ONE (06:00)
[2022-06-05] MEDS ORDERED: SILVER NITRATE APPLICATOR STICK EACH TP PRN (06:00)
[2022-06-05] MEDS ORDERED: LIDOCAINE 1%-EPI 1:100,000 20 ML VIAL IJ ONE (06:00)
[2022-06-05] MEDS ORDERED: LIDOCAINE 1%-EPI 1:100,000 20 ML VIAL IJ PRN (06:00)
[2022-06-05 07:23] LABS: CARBON DIOXIDE 25 mmol/L (21-32); CHLORIDE 105 mmol/L (98-107); CREATININE 0.5 mg/dL (0.6-1.3); GLUCOSE 126 mg/dL (74-106); MAGNESIUM 1.8 mg/dL (1.8-2.4); PHOSPHOROUS 3.4 mg/dL (2.5-4.9); POTASSIUM 3.5 mmol/L (3.5-5.1); UREA NITROGEN, BLOOD 23 mg/dL (7-18)
[2022-06-05 07:55] LABS: HEMATOCRIT 30.5 % (31.2-41.9); MEAN CORPUSCULAR HEMOGLOBIN 29.4 uug (24.7-32.8); PLATELET COUNT (AUTO) 224 K/uL (179-408)
--- NOTE | 2022-06-05 08:00 | NUR ---
RESTING COMFORTABLY IN BED, NO SS OF PAIN OR DISTRESS, SR/ST ON MONITOR RANGES FROM 110-130. CONTINUE WITH ERIC STATUS. VERY MINIMAL OUTPUT FROM GT DRAIN LIKE 20 MLS.. NO NAUSEA AND VOMITING. REMAINS WITH LOW GRADE FEVER. COOLING MEASURES DONE. TPN PER PHARMACY
[2022-06-05] MEDS: PROTEIN SUPPLEMENT (PROSTAT) 30 ML LIQUID GT SCH ×3 (08:43→15:36)
[2022-06-05] MEDS: BACLOFEN 10 MG TABLET GT SCH ×2 (08:43→20:27)
[2022-06-05] MEDS: TRAMADOL HCL 50 MG TABLET GT SCH ×2 (08:43→15:36)
[2022-06-05] MEDS: ASCORBIC ACID 500 MG TABLET GT SCH (08:43)
[2022-06-05] MEDS: AMANTADINE HCL 100 MG CAPSULE GT SCH (08:43)
[2022-06-05] MEDS: ZINC SULFATE 220 MG CAPSULE GT SCH (08:44)
[2022-06-05] MEDS: KETOCONAZOLE 2% CREAM 30 GM TUBE TP SCH (08:44)
[2022-06-05] MEDS: PANTOPRAZOLE SODIUM 40 MG VIAL IV SCH (08:50)
[2022-06-05] MEDS: ONDANSETRON 4 MG/2 ML VIAL IV PRN (08:50)
[2022-06-05] MEDS: HEPARIN SODIUM,PORCINE 5,000 UNITS/ML VIAL SQ SCH ×2 (08:51→20:28)
[2022-06-05] MEDS: THERAHONEY GEL 1.5 OZ TUBE TOP SCH (08:52)
[2022-06-05] MEDS: SODIUM HYPOCHLORITE 0.125% (QUARTER STRENGTH) 473 ML BOTTLE TP SCH (08:52)
[2022-06-05] MEDS: REMEDY ESSENTIAL ZINC PASTE 113 GM TP PRN (08:53)
[2022-06-05] MEDS ORDERED: VANCOMYCIN IV 1,000 MG in IV DEXTROSE 5% 250 ML IV SCH (10:00)
[2022-06-05] MEDS: JEVITY 1.2 1000 ML LIQUID JT PRN (10:31)
[2022-06-05] MEDS: METOCLOPRAMIDE HCL 5 MG TABLET JT SCH ×3 (10:31→17:35)
[2022-06-05] MEDS: ACETAMINOPHEN 650 MG SUPP.RECT RC PRN (10:32)
--- NOTE | 2022-06-05 12:00 | NUR ---
STARTED ON TUBE FEEDING VIA JT AT 10 MLS/HR. CLOSELY MONITORED. IN AND OUT SR/ST . NO SIGNS OF DISTRESS ON 6L VIA TRACH. REQUIRES ORAL/TRACH SUCTIONING SEEN BY DR EM SEE NOTES
[2022-06-05] MEDS ORDERED: TPN BAG #15 IV SCH ×7 (13:00)
[2022-06-05] MEDS: levoFLOXacin 500 MG/D5W 500 MG in PREMIXED 1 EACH IV SCH (16:15)
--- NOTE | 2022-06-05 17:12 | NUR ---
TOLERATING FEEDING TUBE VIA JT NO SS OF VOMITING. CONTINUE WITH IV ANTIBIOTIC PER PHARMACY DOSING. COOLING MEASURES FOR LOW GRADE TEMP
[2022-06-05] MEDS: PHENOBARBITAL SODIUM 130 MG/1 ML DISP.SYRIN IV SCH (20:27)
[2022-06-05] MEDS: DOCUSATE SODIUM 100 MG/10 ML LIQUID UDC GT SCH (20:27)
[2022-06-05] MEDS: GENTAMICIN SULFATE IV SCH (21:03)
[2022-06-05] MEDS: DEXTROSE 5% IV SCH (21:03)
[2022-06-06 00:34] VITALS: BP 144/90
[2022-06-06] MEDS: METOCLOPRAMIDE HCL 5 MG TABLET JT SCH ×4 (00:34→17:59)
[2022-06-06] MEDS: BLOOD SUGAR DIAGNOSTIC 1 EACH STRIP VI SCH ×4 (00:35→17:59)
[2022-06-06 04:05] VITALS: BP 134/83
--- NOTE | 2022-06-06 06:35 | NUR ---
Received a report from the Charge Nurse, Nestor. Patient has gram(+) in clusters in 2 sets of bottle. Will endorse accordingly to oncoming nurse.
--- NOTE | 2022-06-06 07:30 | NUR ---
Sleeping, appears comfortable. Trach to 6L with O2 sat of 97%. Tele SR- ST. JT with Jevity at 10 ml/hr. GT clamped. TPN at 60ml/hr to PICC line. Galdamez catheter to drainage bag. Rectal tube intact.
[2022-06-06 07:50] LABS: HEMATOCRIT 29.2 % (31.2-41.9); MEAN CORPUSCULAR HEMOGLOBIN 29.6 uug (24.7-32.8); MEAN CORPUSCULAR VOLUME 87.8 fL (75.5-95.3); PLATELET COUNT (AUTO) 237 K/uL (179-408)
[2022-06-06 07:53] VITALS: BP 137/91
[2022-06-06 07:54] LABS: CARBON DIOXIDE 23 mmol/L (21-32); CHLORIDE 105 mmol/L (98-107); CREATININE 0.5 mg/dL (0.6-1.3); GLUCOSE 121 mg/dL (74-106); MAGNESIUM 1.9 mg/dL (1.8-2.4); PHOSPHOROUS 4.4 mg/dL (2.5-4.9); POTASSIUM 3.5 mmol/L (3.5-5.1); TRIGLYCERIDES 303 MG/DL (30-150); UREA NITROGEN, BLOOD 19 mg/dL (7-18)
[2022-06-06 08:29] LABS: VANCOMYCIN,RANDOM 7.1 ug/mL (18.0-26.0)
[2022-06-06] MEDS: GENTAMICIN SULFATE IV SCH ×2 (08:39→18:55)
[2022-06-06] MEDS: DEXTROSE 5% IV SCH ×2 (08:39→18:55)
[2022-06-06] MEDS: BACLOFEN 10 MG TABLET GT SCH ×2 (08:39→21:11)
[2022-06-06] MEDS: PANTOPRAZOLE SODIUM 40 MG VIAL IV SCH (08:40)
[2022-06-06] MEDS: TRAMADOL HCL 50 MG TABLET GT SCH ×3 (08:40→18:58)
[2022-06-06] MEDS: ZINC SULFATE 220 MG CAPSULE GT SCH (08:40)
[2022-06-06] MEDS: ASCORBIC ACID 500 MG TABLET GT SCH (08:40)
[2022-06-06] MEDS: PROTEIN SUPPLEMENT (PROSTAT) 30 ML LIQUID GT SCH ×3 (08:41→17:59)
[2022-06-06] MEDS: HEPARIN SODIUM,PORCINE 5,000 UNITS/ML VIAL SQ SCH ×2 (08:41→21:10)
[2022-06-06] MEDS: THERAHONEY GEL 1.5 OZ TUBE TOP SCH (08:44)
[2022-06-06] MEDS: KETOCONAZOLE 2% CREAM 30 GM TUBE TP SCH (08:45)
[2022-06-06] MEDS: SODIUM HYPOCHLORITE 0.125% (QUARTER STRENGTH) 473 ML BOTTLE TP SCH (08:45)
[2022-06-06] MEDS: AMANTADINE HCL 100 MG CAPSULE GT SCH (08:53)
--- NOTE | 2022-06-06 09:30 | NUR ---
Secretions suctioned. Oral care and tach care done
[2022-06-06] MEDS: VANCOMYCIN IV 750 MG in IV DEXTROSE 5% 250 ML IV SCH (10:56)
--- NOTE | 2022-06-06 11:30 | NUR ---
Wound debridement done on sacral and right buttocks. Wound care done as ordered. Repositioned comfortably
[2022-06-06 11:50] VITALS: BP 150/97
[2022-06-06] MEDS ORDERED: TPN BAG #16 IV SCH ×5 (13:00)
[2022-06-06] MEDS ORDERED: IV FAT EMULSIONS 20% 250 ML IV ONE (13:00)
[2022-06-06] MEDS: INSULIN REGULAR, HUMAN 300 UNIT/3 ML VIAL SQ PRN (13:45)
[2022-06-06] MEDS: CLONIDINE-TTS 1 PATCH TD SCH (13:46)
[2022-06-06 16:35] VITALS: BP 146/89
[2022-06-06] MEDS: levoFLOXacin 500 MG/D5W 500 MG in PREMIXED 1 EACH IV SCH (17:59)
[2022-06-06] MEDS: ACETAMINOPHEN 325 MG TABLET GT PRN (18:02)
--- NOTE | 2022-06-06 18:30 | NUR ---
Temp 101. Tylenol and cooling measures given. Gent trough 1.7. Pharmacy informed with dose to be given.
[2022-06-06 20:00] VITALS: BP 133/86
[2022-06-06] MEDS: DOCUSATE SODIUM 100 MG/10 ML LIQUID UDC GT SCH (21:00)
[2022-06-06] MEDS: PHENOBARBITAL SODIUM 130 MG/1 ML DISP.SYRIN IV SCH (21:12)
[2022-06-07] MEDS: ACETAMINOPHEN 325 MG TABLET GT PRN ×3 (00:29→20:17)
[2022-06-07] MEDS: METOCLOPRAMIDE HCL 5 MG TABLET JT SCH ×5 (00:29→23:55)
[2022-06-07] MEDS: BLOOD SUGAR DIAGNOSTIC 1 EACH STRIP VI SCH ×4 (00:46→17:26)
--- NOTE | 2022-06-07 00:46 | NUR ---
Temp 100.3 given cooling measures plus tylenol via gt. no s/s of distress.
[2022-06-07] MEDS: DEXTROSE 5% IV SCH ×2 (04:35→14:51)
[2022-06-07] MEDS: GENTAMICIN SULFATE IV SCH ×2 (04:35→14:51)
[2022-06-07 07:28] LABS: HEMATOCRIT 27.9 % (31.2-41.9); MEAN CORPUSCULAR HEMOGLOBIN 29.1 uug (24.7-32.8); MEAN CORPUSCULAR VOLUME 87.1 fL (75.5-95.3); PLATELET COUNT (AUTO) 264 K/uL (179-408)
--- NOTE | 2022-06-07 07:29 | NUR ---
Patient awake hob elevated, no s/s of pain no s/s of sob, suctioned with yellow color sputum in moderate amount, saturation 100%, rectal tube draining with soft watery BM in moderate amount, rivas cath patent. Patient JT dressing intact, on 30cc per hour Glucerna, tolerate well, afebrile at this time, no s/s of distress, cont to monitor.
[2022-06-07 07:57] LABS: CARBON DIOXIDE 22 mmol/L (21-32); CHLORIDE 102 mmol/L (98-107); CREATININE 0.5 mg/dL (0.6-1.3); GLUCOSE 134 mg/dL (74-106); PHOSPHOROUS 4.3 mg/dL (2.5-4.9); UREA NITROGEN, BLOOD 20 mg/dL (7-18)
[2022-06-07] MEDS: PANTOPRAZOLE SODIUM 40 MG VIAL IV SCH (09:42)
[2022-06-07] MEDS: ASCORBIC ACID 500 MG TABLET GT SCH (09:43)
[2022-06-07] MEDS: BACLOFEN 10 MG TABLET GT SCH ×2 (09:43→20:16)
[2022-06-07] MEDS: PROTEIN SUPPLEMENT (PROSTAT) 30 ML LIQUID GT SCH ×3 (09:44→17:21)
[2022-06-07] MEDS: AMANTADINE HCL 100 MG CAPSULE GT SCH (09:45)
[2022-06-07] MEDS: ZINC SULFATE 220 MG CAPSULE GT SCH (09:46)
[2022-06-07] MEDS: THERAHONEY GEL 1.5 OZ TUBE TOP SCH (09:48)
[2022-06-07] MEDS: SODIUM HYPOCHLORITE 0.125% (QUARTER STRENGTH) 473 ML BOTTLE TP SCH (09:49)
[2022-06-07] MEDS: KETOCONAZOLE 2% CREAM 30 GM TUBE TP SCH (09:50)
[2022-06-07] MEDS: HEPARIN SODIUM,PORCINE 5,000 UNITS/ML VIAL SQ SCH ×2 (09:52→20:22)
[2022-06-07] MEDS: VANCOMYCIN IV 750 MG in IV DEXTROSE 5% 250 ML IV SCH (09:54)
[2022-06-07 11:52] VITALS: BP 132/81
[2022-06-07] MEDS ORDERED: TPN BAG #17 IV SCH ×5 (13:00)
[2022-06-07 15:50] VITALS: BP 133/78
[2022-06-07] MEDS: TRAMADOL HCL 50 MG TABLET GT SCH (16:15)
[2022-06-07] MEDS: levoFLOXacin 500 MG/D5W 500 MG in PREMIXED 1 EACH IV SCH (16:16)
[2022-06-07 19:58] VITALS: BP 140/70
[2022-06-07] MEDS: PHENOBARBITAL SODIUM 130 MG/1 ML DISP.SYRIN IV SCH (20:17)
[2022-06-07] MEDS: DOCUSATE SODIUM 100 MG/10 ML LIQUID UDC GT SCH (20:25)
[2022-06-07] MEDS: METOPROLOL TARTRATE 5 MG/5 ML VIAL IVP PRN (23:00)
[2022-06-07 23:53] VITALS: BP 151/72
[2022-06-08] MEDS: DEXTROSE 5% IV SCH ×3 (00:04→21:20)
[2022-06-08] MEDS: GENTAMICIN SULFATE IV SCH ×3 (00:04→21:20)
[2022-06-08] MEDS: BLOOD SUGAR DIAGNOSTIC 1 EACH STRIP VI SCH ×5 (00:04→23:41)
[2022-06-08] MEDS: METOCLOPRAMIDE HCL 5 MG TABLET JT SCH ×4 (05:17→23:41)
[2022-06-08 07:25] LABS: HEMATOCRIT 28.9 % (31.2-41.9); MEAN CORPUSCULAR HEMOGLOBIN 28.7 uug (24.7-32.8); MEAN CORPUSCULAR VOLUME 86.5 fL (75.5-95.3); PLATELET COUNT (AUTO) 280 K/uL (179-408)
[2022-06-08] MEDS: PANTOPRAZOLE ORAL SUSPENSION 40 MG SUSPDR.PKT JT SCH (07:31)
[2022-06-08 07:58] LABS: CARBON DIOXIDE 26 mmol/L (21-32); CHLORIDE 103 mmol/L (98-107); CREATININE 0.5 mg/dL (0.6-1.3); GLUCOSE 116 mg/dL (74-106); MAGNESIUM 2.1 mg/dL (1.8-2.4); PHOSPHOROUS 4.7 mg/dL (2.5-4.9); UREA NITROGEN, BLOOD 19 mg/dL (7-18)
[2022-06-08] MEDS: HEPARIN SODIUM,PORCINE 5,000 UNITS/ML VIAL SQ SCH ×2 (08:26→21:20)
[2022-06-08] MEDS: TRAMADOL HCL 50 MG TABLET GT SCH ×2 (08:27→16:49)
[2022-06-08] MEDS: ASCORBIC ACID 500 MG TABLET GT SCH (08:27)
[2022-06-08] MEDS: BACLOFEN 10 MG TABLET GT SCH ×2 (08:27→21:21)
[2022-06-08] MEDS: ZINC SULFATE 220 MG CAPSULE GT SCH (08:27)
[2022-06-08] MEDS: AMANTADINE HCL 100 MG CAPSULE GT SCH (08:28)
[2022-06-08] MEDS: PROTEIN SUPPLEMENT (PROSTAT) 30 ML LIQUID GT SCH ×3 (08:28→16:10)
[2022-06-08] MEDS: THERAHONEY GEL 1.5 OZ TUBE TOP SCH (08:46)
[2022-06-08] MEDS: KETOCONAZOLE 2% CREAM 30 GM TUBE TP SCH (08:47)
[2022-06-08] MEDS: VANCOMYCIN IV 750 MG in IV DEXTROSE 5% 250 ML IV SCH (08:53)
[2022-06-08] MEDS: SODIUM HYPOCHLORITE 0.125% (QUARTER STRENGTH) 473 ML BOTTLE TP SCH (09:06)
[2022-06-08] MEDS: levETIRAcetam 500 MG/5 ML LIQUID UDC JT SCH ×2 (09:09→21:18)
[2022-06-08] MEDS: METOPROLOL TARTRATE 5 MG/5 ML VIAL IVP PRN (11:20)
[2022-06-08 12:00] VITALS: BP 114/86
[2022-06-08] MEDS ORDERED: TPN BAG #18 IV SCH ×5 (13:00)
[2022-06-08] MEDS: levoFLOXacin 500 MG/D5W 500 MG in PREMIXED 1 EACH IV SCH (16:56)
--- NOTE | 2022-06-08 17:37 | NUR ---
Patient is awake. HOB Elevated. New TPN bag was hanged. no s/s of pain and no s/s of sob noted, rectal tube draining with soft watery BM, Galdamez cath patent and yellow color urine noted in the bag. Patient J Tube dressing intact, will keep monitoring the patient.
[2022-06-08 18:00] VITALS: BP 139/89
[2022-06-08 20:00] VITALS: BP 136/89
[2022-06-08] MEDS: DOCUSATE SODIUM 100 MG/10 ML LIQUID UDC GT SCH (21:18)
[2022-06-08] MEDS: PHENOBARBITAL 32.4 MG TABLET JT SCH (21:21)
[2022-06-08 23:28] VITALS: BP 139/89
[2022-06-09] VITALS: BP 106/61
[2022-06-09] MEDS ORDERED: MORPHINE SULFATE 2 MG/1 ML DISP.SYRIN IV ONE (00:15)
[2022-06-09 05:23] VITALS: BP 109/62
[2022-06-09] MEDS: PANTOPRAZOLE ORAL SUSPENSION 40 MG SUSPDR.PKT JT SCH (05:39)
[2022-06-09] MEDS: METOCLOPRAMIDE HCL 5 MG TABLET JT SCH ×3 (05:39→17:32)
[2022-06-09] MEDS: GENTAMICIN SULFATE IV SCH ×2 (05:39→17:12)
[2022-06-09] MEDS: DEXTROSE 5% IV SCH ×2 (05:39→17:12)
[2022-06-09] MEDS: BLOOD SUGAR DIAGNOSTIC 1 EACH STRIP VI SCH ×3 (06:23→17:49)
[2022-06-09] MEDS: ZINC SULFATE 220 MG CAPSULE GT SCH (08:21)
[2022-06-09] MEDS: BACLOFEN 10 MG TABLET GT SCH ×2 (08:21→21:07)
[2022-06-09] MEDS: TRAMADOL HCL 50 MG TABLET GT SCH ×2 (08:22→16:43)
[2022-06-09] MEDS: AMANTADINE HCL 100 MG CAPSULE GT SCH (08:22)
[2022-06-09] MEDS: HEPARIN SODIUM,PORCINE 5,000 UNITS/ML VIAL SQ SCH ×2 (08:23→21:09)
[2022-06-09] MEDS: levETIRAcetam 500 MG/5 ML LIQUID UDC JT SCH ×2 (08:24→21:07)
[2022-06-09] MEDS: PROTEIN SUPPLEMENT (PROSTAT) 30 ML LIQUID GT SCH ×3 (08:24→16:43)
[2022-06-09] MEDS: KETOCONAZOLE 2% CREAM 30 GM TUBE TP SCH (08:25)
[2022-06-09] MEDS: SODIUM HYPOCHLORITE 0.125% (QUARTER STRENGTH) 473 ML BOTTLE TP SCH (08:26)
[2022-06-09] MEDS: THERAHONEY GEL 1.5 OZ TUBE TOP SCH (08:27)
[2022-06-09] MEDS: ASCORBIC ACID 500 MG TABLET GT SCH (08:31)
[2022-06-09 08:52] LABS: HEMATOCRIT 28.9 % (31.2-41.9); MEAN CORPUSCULAR VOLUME 86.7 fL (75.5-95.3); PLATELET COUNT (AUTO) 270 K/uL (179-408)
[2022-06-09 09:03] LABS: CREATININE 0.7 mg/dL (0.6-1.3); MAGNESIUM 2.2 mg/dL (1.8-2.4); PHOSPHOROUS 5.3 mg/dL (2.5-4.9); POTASSIUM 4.1 mmol/L (3.5-5.1)
[2022-06-09] MEDS: VANCOMYCIN IV 750 MG in IV DEXTROSE 5% 250 ML IV SCH (10:06)
[2022-06-09 11:35] VITALS: BP 140/98
[2022-06-09] MEDS ORDERED: TPN BAG #19 IV SCH ×5 (13:00)
--- NOTE | 2022-06-09 14:59 | NUR ---
Received a call from lab and reported that pt. has Gram positive cocci in chain and cluster. Dr. Underwood was notified and no new order received.
[2022-06-09 15:39] VITALS: BP 123/91
--- NOTE | 2022-06-09 17:00 | NUR ---
Pt. is awake and needs total care. New TPN bag received by the lab and hanged. Oral care and skin treatment done. HOB elevated and Oxygen level Mostly noted above 93%. No S/S of pain noted. Will keep monitoring the patient.
[2022-06-09] MEDS: levoFLOXacin 500 MG/D5W 500 MG in PREMIXED 1 EACH IV SCH (17:19)
[2022-06-09 20:00] VITALS: BP 111/63
--- NOTE | 2022-06-09 20:00 | NUR ---
RECEIVED REPORT FROM AM NURSE PATIENT IS ALERT AND NONVERBAL PT WAS SUCTIONED BY RT WHICH TOLERATED WELL PT HAS GT FEEDING OF JEVITY GOING AT 30ML AND ALONG WITH TPN GOING AT 30ML AND HOUR. PT TOLERATING WELL NO SIGNS OF DISTRESS NOTED. PT IS REPOSITION EVERY 2 HOURS TOLERATED REPOSITIONING WITH DISTRESS. MEDICATION GIVEN ORDERED NO SIGNS OF ADVERSE REACTION NOTED. WILL CONTINUE TO MONITOR FOR FOR FALLS AND ANYOTHER NEEDS PATIENT MAY HAVE.
[2022-06-09] MEDS: PHENOBARBITAL 32.4 MG TABLET JT SCH (21:07)
[2022-06-09] MEDS: DOCUSATE SODIUM 100 MG/10 ML LIQUID UDC GT SCH (21:07)
[2022-06-10] VITALS: BP 108/66
[2022-06-10] MEDS: DEXTROSE 5% IV SCH (02:00)
[2022-06-10] MEDS: GENTAMICIN SULFATE IV SCH (02:00)
[2022-06-10 04:00] VITALS: BP 128/82
[2022-06-10] MEDS: VANCOMYCIN IV 750 MG in IV DEXTROSE 5% 250 ML IV SCH ×2 (04:36→21:11)
[2022-06-10] MEDS: PANTOPRAZOLE ORAL SUSPENSION 40 MG SUSPDR.PKT JT SCH (06:13)
[2022-06-10] MEDS: METOCLOPRAMIDE HCL 5 MG TABLET JT SCH ×4 (06:13→17:16)
[2022-06-10] MEDS: BLOOD SUGAR DIAGNOSTIC 1 EACH STRIP VI SCH ×4 (06:13→18:50)
[2022-06-10] MEDS: INSULIN REGULAR, HUMAN 300 UNIT/3 ML VIAL SQ PRN (06:14)
--- NOTE | 2022-06-10 06:55 | NUR ---
PT AM BLOOD SUGAR 107 NO SIGNS OF DIABETIC REACTION NOTED. WILL ENDORSE TO AM NURSE.
[2022-06-10 07:11] LABS: CREATININE 0.6 mg/dL (0.6-1.3); MAGNESIUM 2.1 mg/dL (1.8-2.4); PHOSPHOROUS 5.1 mg/dL (2.5-4.9)
[2022-06-10] MEDS: ZINC SULFATE 220 MG CAPSULE GT SCH (08:48)
[2022-06-10] MEDS: ASCORBIC ACID 500 MG TABLET GT SCH (08:48)
[2022-06-10] MEDS: HEPARIN SODIUM,PORCINE 5,000 UNITS/ML VIAL SQ SCH ×2 (08:48→21:13)
[2022-06-10] MEDS: TRAMADOL HCL 50 MG TABLET GT SCH ×2 (08:49→17:16)
[2022-06-10] MEDS: AMANTADINE HCL 100 MG CAPSULE GT SCH (08:49)
[2022-06-10] MEDS: BACLOFEN 10 MG TABLET GT SCH ×2 (08:50→21:09)
[2022-06-10] MEDS: PROTEIN SUPPLEMENT (PROSTAT) 30 ML LIQUID GT SCH ×3 (08:50→17:17)
[2022-06-10] MEDS: levETIRAcetam 500 MG/5 ML LIQUID UDC JT SCH ×2 (08:51→21:10)
[2022-06-10] MEDS: KETOCONAZOLE 2% CREAM 30 GM TUBE TP SCH (09:00)
[2022-06-10] MEDS: THERAHONEY GEL 1.5 OZ TUBE TOP SCH (09:00)
[2022-06-10] MEDS: SODIUM HYPOCHLORITE 0.125% (QUARTER STRENGTH) 473 ML BOTTLE TP SCH (09:00)
[2022-06-10 12:05] VITALS: BP 129/81
[2022-06-10] MEDS: ACETAMINOPHEN 325 MG TABLET GT PRN (12:45)
[2022-06-10] MEDS: JEVITY 1.2 1000 ML LIQUID JT PRN (12:57)
[2022-06-10] MEDS ORDERED: TPN BAG #20 IV SCH ×3 (13:00)
[2022-06-10] MEDS: levoFLOXacin 500 MG/D5W 500 MG in PREMIXED 1 EACH IV SCH (17:16)
[2022-06-10 17:21] VITALS: BP 116/88
--- NOTE | 2022-06-10 19:23 | NUR ---
INCREASED PT'S G-TUBE FEEDING BY 10 CC AT 18:30. STOPPED HER TPN
[2022-06-10] MEDS ORDERED: MEROPENEM 1 G in IV NORMAL SALINE 100 ML IV SCH (19:30)
[2022-06-10 20:00] VITALS: BP 131/81
[2022-06-10] MEDS: MEROPENEM 1 G in IV NORMAL SALINE 100 ML IV SCH (20:31)
[2022-06-10] MEDS: PHENOBARBITAL 32.4 MG TABLET JT SCH (21:09)
[2022-06-10] MEDS: DOCUSATE SODIUM 100 MG/10 ML LIQUID UDC GT SCH (21:35)
[2022-06-11] VITALS: BP 121/80
[2022-06-11 04:00] VITALS: BP 119/72
[2022-06-11] MEDS: MEROPENEM 1 G in IV NORMAL SALINE 100 ML IV SCH ×3 (04:19→20:58)
[2022-06-11] MEDS: BLOOD SUGAR DIAGNOSTIC 1 EACH STRIP VI SCH ×4 (06:00→18:00)
[2022-06-11] MEDS: PANTOPRAZOLE ORAL SUSPENSION 40 MG SUSPDR.PKT JT SCH (06:00)
[2022-06-11] MEDS: METOCLOPRAMIDE HCL 5 MG TABLET JT SCH ×4 (06:00→17:59)
--- NOTE | 2022-06-11 06:12 | NUR ---
SHIFT NOTE: RECEIVED REPORT FROM AM NURSE ROSIBEL PT IS ALERT AND RESPONDS TO TACTILE STIMULI MOUTH CARE GIVEN NO SIGNS OF RESPIRATORY DISTRESS NOTED AFTER RT SUCTIONED PATIENT. PT WAS GIVEN MEDICATION ORDERED NO SIGNS OF RESPIRATORY DISTRESS NOTED. PT HS BLOOD SUGAR IS 108 AND NO ADVERSE REACTION FROM MEDICATION. PT GIVEN AM CARE TOLERATED WELL. PT TURNED AND REPOSITIONED EVERY 2 HOURS TOLERATED WELL. WILL CONTINUE MONITOR FOR SAFETY ALONG WITH FALL PREVENTION NO SIGNS OF RESPIRATORY DISTRESS NOTED. WILL ENDORSE TO AM NURSE.
[2022-06-11] MEDS: INSULIN REGULAR, HUMAN 300 UNIT/3 ML VIAL SQ PRN ×2 (07:12→11:53)
[2022-06-11 07:18] LABS: CREATININE 0.7 mg/dL (0.6-1.3); HEMATOCRIT 25.6 % (31.2-41.9); MEAN CORPUSCULAR HEMOGLOBIN 29.3 uug (24.7-32.8); MEAN CORPUSCULAR VOLUME 85.4 fL (75.5-95.3); PLATELET COUNT (AUTO) 311 K/uL (179-408); POTASSIUM 3.9 mmol/L (3.5-5.1)
[2022-06-11] MEDS: GENTAMICIN SULFATE IV SCH ×4 (08:29→23:00)
[2022-06-11] MEDS: DEXTROSE 5% IV SCH ×4 (08:29→23:00)
[2022-06-11] MEDS: ASCORBIC ACID 500 MG TABLET GT SCH (08:41)
[2022-06-11] MEDS: TRAMADOL HCL 50 MG TABLET GT SCH ×2 (08:42→17:59)
[2022-06-11] MEDS: BACLOFEN 10 MG TABLET GT SCH ×2 (08:42→21:00)
[2022-06-11] MEDS: ZINC SULFATE 220 MG CAPSULE GT SCH (08:43)
[2022-06-11] MEDS: levETIRAcetam 500 MG/5 ML LIQUID UDC JT SCH ×2 (08:44→21:00)
[2022-06-11] MEDS: AMANTADINE HCL 100 MG CAPSULE GT SCH (08:46)
[2022-06-11] MEDS: KETOCONAZOLE 2% CREAM 30 GM TUBE TP SCH (08:47)
[2022-06-11] MEDS: THERAHONEY GEL 1.5 OZ TUBE TOP SCH (08:47)
[2022-06-11] MEDS: SODIUM HYPOCHLORITE 0.125% (QUARTER STRENGTH) 473 ML BOTTLE TP SCH (08:48)
[2022-06-11] MEDS: HEPARIN SODIUM,PORCINE 5,000 UNITS/ML VIAL SQ SCH (08:49)
[2022-06-11] MEDS: PROTEIN SUPPLEMENT (PROSTAT) 30 ML LIQUID GT SCH ×3 (09:00→17:00)
[2022-06-11 11:43] VITALS: BP 128/77
[2022-06-11] MEDS: JEVITY 1.2 1000 ML LIQUID JT PRN (14:48)
[2022-06-11] MEDS ORDERED: JEVITY 1.2 1000 ML LIQUID JT PRN (15:15)
[2022-06-11 15:33] VITALS: BP 130/82
[2022-06-11] MEDS: VANCOMYCIN IV 750 MG in IV DEXTROSE 5% 250 ML IV SCH (16:51)
--- NOTE | 2022-06-11 18:25 | NUR ---
RECEIVED AWAKE AND RESPONDS TO TACTILE AND PAIN STIMULI. NO RESPIRATORY DISTRESS NOTED. SUCTIONED PRN. CONTINUE IV ATB TX WITH NO ADVERSE REACTION FROM NOTED. CONTINUE TO TOLERATE TUBE FEEDING WELL, TUBE FEEDING RATE INCREASED TO 65 ML/HR. WOUND DRESSING CHANGED AND PATIENT TURNED AND REPOSITIONED EVERY 2 HOURS. KEPT CLEANED AND COMFORTABLE, WILL CONTINUE TO MONITOR.
[2022-06-11 20:00] VITALS: BP 125/85
[2022-06-11] MEDS: PHENOBARBITAL 32.4 MG TABLET JT SCH (21:00)
[2022-06-11] MEDS: APIXABAN 2.5 MG TABLET JT SCH (21:00)
[2022-06-11] MEDS: DOCUSATE SODIUM 100 MG/10 ML LIQUID UDC GT SCH (22:03)
[2022-06-12] VITALS: BP 116/74
[2022-06-12 04:00] VITALS: BP 130/87
[2022-06-12] MEDS: MEROPENEM 1 G in IV NORMAL SALINE 100 ML IV SCH ×3 (04:07→21:40)
[2022-06-12] MEDS: PANTOPRAZOLE ORAL SUSPENSION 40 MG SUSPDR.PKT JT SCH (06:36)
[2022-06-12] MEDS: METOCLOPRAMIDE HCL 5 MG TABLET JT SCH ×4 (06:36→17:33)
[2022-06-12 06:37] LABS: HEMATOCRIT 28.4 % (31.2-41.9); MEAN CORPUSCULAR VOLUME 85.4 fL (75.5-95.3); PLATELET COUNT (AUTO) 334 K/uL (179-408)
[2022-06-12] MEDS: BLOOD SUGAR DIAGNOSTIC 1 EACH STRIP VI SCH ×2 (06:44)
[2022-06-12] MEDS: INSULIN REGULAR, HUMAN 300 UNIT/3 ML VIAL SQ PRN (06:45)
--- NOTE | 2022-06-12 06:48 | NUR ---
SHIFT NOTE: PT IS STILL ALERT NO SIGNS OF RESPIRATORY DISTRESS NOTED. RESPONDS ONLY TO TACTILE STIMULI ALONG WITH PAIN. HS BLOOD SUGAR 98 NORMAL NO SIGNS OF DIABETIC REACTION FROM BLOOD SUGAR NOTED. PT REPOSITIONED EVERY TWO HOURS TOLERATED WELL. PT GIVEN MEDICATION ORDERED NO SIGNS OF ADVERSE REACTION FROM MEDICATION. WILL CONTINUE TO MONITOR FOR SAFETY ALONG WITH FALL PREVENTION. WILL ENDORSE TO AM NURSE. Addendum: 06/12/22 at 0821 by [id number] RN PT TPN WAS D/C'D ON AM SHIFT AND HAD ELVATED TEMPERATURES BUT NO TEMPERATURE DURING THE SHIFT.
[2022-06-12 07:11] LABS: CREATININE 0.8 mg/dL (0.6-1.3); POTASSIUM 3.9 mmol/L (3.5-5.1)
[2022-06-12 07:33] VITALS: BP 110/68
--- NOTE | 2022-06-12 08:00 | NUR ---
AWAKE ALERT WITH EYES WIDE OPEN BUT NO EYE CONTACT, FACIAL GRIMACES DURING TURNING TO SIDES. KEPT COMFORTABLE. ON 6L O2 VIA TRACH PORTEX 7 SATURATING 100%. CONTINUE WITH TELE STATUS
[2022-06-12] MEDS: DEXTROSE 5% IV SCH ×2 (08:25→22:38)
[2022-06-12] MEDS: GENTAMICIN SULFATE IV SCH ×2 (08:25→22:38)
[2022-06-12] MEDS: AMANTADINE HCL 100 MG CAPSULE GT SCH (08:26)
[2022-06-12] MEDS: levETIRAcetam 500 MG/5 ML LIQUID UDC JT SCH ×2 (08:26→21:41)
[2022-06-12] MEDS: ZINC SULFATE 220 MG CAPSULE GT SCH (08:27)
[2022-06-12] MEDS: METOPROLOL TARTRATE 5 MG/5 ML VIAL IVP PRN (08:27)
[2022-06-12] MEDS: BACLOFEN 10 MG TABLET GT SCH ×2 (08:27→21:41)
[2022-06-12] MEDS: ACETAMINOPHEN 325 MG TABLET GT PRN (08:27)
[2022-06-12] MEDS: TRAMADOL HCL 50 MG TABLET GT SCH ×2 (08:28→16:32)
[2022-06-12] MEDS: APIXABAN 2.5 MG TABLET JT SCH ×2 (08:28→21:43)
[2022-06-12] MEDS: ASCORBIC ACID 500 MG TABLET GT SCH (08:29)
[2022-06-12] MEDS: PROTEIN SUPPLEMENT (PROSTAT) 30 ML LIQUID GT SCH ×3 (08:29→16:32)
[2022-06-12] MEDS: KETOCONAZOLE 2% CREAM 30 GM TUBE TP SCH (08:30)
[2022-06-12] MEDS: THERAHONEY GEL 1.5 OZ TUBE TOP SCH (08:30)
[2022-06-12] MEDS: SODIUM HYPOCHLORITE 0.125% (QUARTER STRENGTH) 473 ML BOTTLE TP SCH (08:30)
[2022-06-12] MEDS: MULTIVITAMINS,THERAPEUTIC TABLET JT SCH (08:37)
[2022-06-12] MEDS: VANCOMYCIN IV 1,000 MG in IV DEXTROSE 5% 250 ML IV SCH (09:59)
--- NOTE | 2022-06-12 12:00 | NUR ---
SEEN BY HOSPITALIST AND DR EM FOR FOLLOW-UP SEE NOTES
--- NOTE | 2022-06-12 14:20 | NUR ---
WOUND CARE DONE ORDERED PATIENT TOLERATED WELL. TOLERATING FEEDING AT 60 MLS/HR VIA JT NO RESIDUAL. JT SITE CLEAN, GT SITE REMAINS VERY EXCORIATED ROUTINE CREAM APPLIED
[2022-06-12 15:35] VITALS: BP 120/79
--- NOTE | 2022-06-12 17:46 | NUR ---
TOLERATING FEEDING WELL WITHOUT VOMITING, AFEBRILE ALL DAY. CONTINUE PLAN OF CARE ORDERED.
[2022-06-12] MEDS: DOCUSATE SODIUM 100 MG/10 ML LIQUID UDC GT SCH (21:41)
[2022-06-12] MEDS: PHENOBARBITAL 32.4 MG TABLET JT SCH (21:41)
[2022-06-13] MEDS: MEROPENEM 1 G in IV NORMAL SALINE 100 ML IV SCH ×3 (04:00→20:31)
[2022-06-13] MEDS: VANCOMYCIN IV 1,000 MG in IV DEXTROSE 5% 250 ML IV SCH ×2 (04:00→22:14)
[2022-06-13] MEDS: PANTOPRAZOLE ORAL SUSPENSION 40 MG SUSPDR.PKT JT SCH (06:36)
[2022-06-13] MEDS: METOCLOPRAMIDE HCL 5 MG TABLET JT SCH ×4 (06:36→17:14)
[2022-06-13 07:00] LABS: HEMATOCRIT 31.1 % (31.2-41.9); MEAN CORPUSCULAR HEMOGLOBIN 28.6 uug (24.7-32.8); MEAN CORPUSCULAR VOLUME 86.6 fL (75.5-95.3); PLATELET COUNT (AUTO) 352 K/uL (179-408)
[2022-06-13 07:21] LABS: CREATININE 0.8 mg/dL (0.6-1.3); POTASSIUM 4.3 mmol/L (3.5-5.1)
--- NOTE | 2022-06-13 08:00 | NUR ---
AWAKE ALERT WITH EYES OPEN BUT NON-VERBAL, FACIAL GRIMACES WHEN TURN TO SIDES, NO SS OF DISTRESS WITH 6L VIA TRACH COLLAR SATURATING 100%. SR/ST ON MONITOR. AFEBRILE
--- NOTE | 2022-06-13 08:04 | NUR ---
SHIFT NOTE; PT IS ALERT BUT NONVERBAL ONLY RESPONSE IS TO TOUCH AND PAIN. PT ANTIBIOTIC AND OTHER MEDICATIONS GIVEN ORDERED NO SIGNS OF ADVERSE REACTION NOTED. PT STILL ON TELEMONITOR WHICH SHOWS SINUS TACHYCARDIA BUT NO SIGNS OF DISTRESS NOTED. STERILE URINE SPECIMEN TAKEN TO LAB PT MONITORED FOR SAFETY EVERY 2 HOURS ALONG WITH FALLS WILL ENDORSE TO AM NURSE.
[2022-06-13] MEDS: levETIRAcetam 500 MG/5 ML LIQUID UDC JT SCH ×2 (09:04→21:00)
[2022-06-13] MEDS: AMANTADINE HCL 100 MG CAPSULE GT SCH (09:05)
[2022-06-13] MEDS: ACETAMINOPHEN 325 MG TABLET GT PRN ×2 (09:05→17:15)
[2022-06-13] MEDS: ASCORBIC ACID 500 MG TABLET GT SCH (09:05)
[2022-06-13] MEDS: BACLOFEN 10 MG TABLET GT SCH ×2 (09:05→21:00)
[2022-06-13] MEDS: THERAHONEY GEL 1.5 OZ TUBE TOP SCH (09:05)
[2022-06-13] MEDS: TRAMADOL HCL 50 MG TABLET GT SCH ×2 (09:06→17:14)
[2022-06-13] MEDS: APIXABAN 2.5 MG TABLET JT SCH ×2 (09:06→21:00)
[2022-06-13] MEDS: ZINC SULFATE 220 MG CAPSULE GT SCH (09:06)
[2022-06-13] MEDS: MULTIVITAMINS,THERAPEUTIC TABLET JT SCH (09:06)
[2022-06-13] MEDS: SODIUM HYPOCHLORITE 0.125% (QUARTER STRENGTH) 473 ML BOTTLE TP SCH (09:08)
[2022-06-13] MEDS: PROTEIN SUPPLEMENT (PROSTAT) 30 ML LIQUID GT SCH ×3 (09:08→17:15)
[2022-06-13] MEDS: KETOCONAZOLE 2% CREAM 30 GM TUBE TP SCH (09:09)
[2022-06-13 09:40] LABS: MAGNESIUM 2.1 mg/dL (1.8-2.4); PHOSPHOROUS 4.2 mg/dL (2.5-4.9)
--- NOTE | 2022-06-13 11:35 | NUR ---
WOND CARE DONE ORDERED, NOTED RIDE SIDE ULCER WITH GRANULATING TISSUE AND NECROSIS CONTINUE WITH TERAHONY GEL TX ORDERED.
[2022-06-13 11:44] VITALS: BP 132/69
[2022-06-13] MEDS: CLONIDINE-TTS 1 PATCH TD SCH (12:27)
[2022-06-13] MEDS: DEXTROSE 5% IV SCH (14:11)
[2022-06-13] MEDS: GENTAMICIN SULFATE IV SCH (14:11)
[2022-06-13 15:52] VITALS: BP 125/81
--- NOTE | 2022-06-13 18:17 | NUR ---
SEEN BY DESTIN ABBASI FOR WOUND FOLLOW-UP SEE NOTES. PATIENT WITH NO SS OF RESPIRATORY DISTRESS, SATURATING 100% ON 6L VIA TRACH. TEMP ON THE LOW GRADE 99 ORALLY. GT DRESSING CHANGED DONE, NOTED SITE VERY EXCORIATED, CLEANSED WITH NS AND STERILE DRESSING APPLIED. NO LEAKAGE NOTED. CONTINUE TO TOLERATE JEVITY FEEDING AT 60 MLS/HR, NO RESIDUAL
[2022-06-13 20:24] VITALS: BP 131/80
[2022-06-13] MEDS: DOCUSATE SODIUM 100 MG/10 ML LIQUID UDC GT SCH (21:00)
[2022-06-13] MEDS: PHENOBARBITAL 32.4 MG TABLET JT SCH (21:00)
[2022-06-13 23:12] VITALS: BP 133/83
[2022-06-14] MEDS: MEROPENEM 1 G in IV NORMAL SALINE 100 ML IV SCH ×3 (03:10→20:54)
[2022-06-14] MEDS: GENTAMICIN SULFATE IV SCH ×2 (04:50→20:34)
[2022-06-14] MEDS: DEXTROSE 5% IV SCH ×2 (04:50→20:34)
[2022-06-14 05:16] VITALS: BP 123/78
[2022-06-14] MEDS: PANTOPRAZOLE ORAL SUSPENSION 40 MG SUSPDR.PKT JT SCH (06:03)
[2022-06-14] MEDS: METOCLOPRAMIDE HCL 5 MG TABLET JT SCH ×4 (06:03→17:12)
--- NOTE | 2022-06-14 06:49 | NUR ---
SHIFT NOTE; RECEIVED REPORT FROM AM NURSE MICHELLE PT DRESSING CHANGED AND PT CHECKED PT RESIDUAL LESS THAN 5ML OUTPUT. MEDICATION AND ANTIBIOTIC GIVEN ORDERED NO SIGNS ADVERSE REACTIONS NOTED. PT REPOSTIONED ORDERED TOLERATED WELL NO SIGNS OF DISTRESS NOTED. PT IS STILL ON MONITORED SHOWS SINUS TACHYCARDIA AND CALLED RT AND HE CAME SUCTIONED PT REMOVE YELLOWISH THICK SECRETION FLUSHED GT WITH 400MLOF FLUIDS THROUGHOUT SHIFT. CHECKED PT SLEEPING APPEARS TO RESTING COMFORTABLY WILL ENDORSE TO AM NURSE.
[2022-06-14 07:50] LABS: HEMATOCRIT 28.6 % (31.2-41.9); MEAN CORPUSCULAR HEMOGLOBIN 28.6 uug (24.7-32.8); MEAN CORPUSCULAR VOLUME 85.4 fL (75.5-95.3); PLATELET COUNT (AUTO) 328 K/uL (179-408)
[2022-06-14 07:57] LABS: CREATININE 0.7 mg/dL (0.6-1.3); POTASSIUM 3.8 mmol/L (3.5-5.1)
[2022-06-14] MEDS: JEVITY 1.2 1000 ML LIQUID JT PRN (09:00)
[2022-06-14] MEDS: levETIRAcetam 500 MG/5 ML LIQUID UDC JT SCH ×2 (09:08→21:39)
[2022-06-14] MEDS: TRAMADOL HCL 50 MG TABLET GT SCH ×3 (09:08→19:56)
[2022-06-14] MEDS: BACLOFEN 10 MG TABLET GT SCH ×2 (09:08→21:56)
[2022-06-14] MEDS: AMANTADINE HCL 100 MG CAPSULE GT SCH (09:08)
[2022-06-14] MEDS: ZINC SULFATE 220 MG CAPSULE GT SCH (09:08)
[2022-06-14] MEDS: MULTIVITAMINS,THERAPEUTIC TABLET JT SCH (09:08)
[2022-06-14] MEDS: ASCORBIC ACID 500 MG TABLET GT SCH (09:08)
[2022-06-14] MEDS: APIXABAN 2.5 MG TABLET JT SCH ×2 (09:09→21:43)
[2022-06-14] MEDS: THERAHONEY GEL 1.5 OZ TUBE TOP SCH (09:10)
[2022-06-14] MEDS: SODIUM HYPOCHLORITE 0.125% (QUARTER STRENGTH) 473 ML BOTTLE TP SCH (09:10)
[2022-06-14] MEDS: PROTEIN SUPPLEMENT (PROSTAT) 30 ML LIQUID GT SCH ×3 (09:10→17:13)
[2022-06-14] MEDS: KETOCONAZOLE 2% CREAM 30 GM TUBE TP SCH (09:11)
[2022-06-14] MEDS ORDERED: HEPARIN SODIUM,PORCINE 5,000 UNITS/ML VIAL SQ SCH (14:45)
[2022-06-14] MEDS ORDERED: TPN/PPN PER PHARMACY IV PRN (14:45)
[2022-06-14] MEDS ORDERED: DEXTROSE 50% 50 ML DISP.SYRIN IV PRN (14:45)
[2022-06-14] MEDS ORDERED: VANCOMYCIN IV 750 MG in IV DEXTROSE 5% 250 ML IV SCH (14:45)
[2022-06-14] MEDS ORDERED: DEXTROSE 5% IV SCH (14:45)
[2022-06-14] MEDS ORDERED: INSULIN REGULAR, HUMAN 300 UNIT/3 ML VIAL SQ PRN (14:45)
[2022-06-14] MEDS ORDERED: PANTOPRAZOLE SODIUM 40 MG VIAL IV SCH (14:45)
[2022-06-14] MEDS ORDERED: [UNRECOGNIZED DRUG - OTHER] IV SCH ×5 (14:45)
[2022-06-14] MEDS ORDERED: LIDOCAINE 1%-EPI 1:100,000 20 ML VIAL IJ PRN (14:45)
[2022-06-14] MEDS ORDERED: IV FAT EMULSIONS 20% 250 ML IV ONE (14:45)
[2022-06-14] MEDS ORDERED: levoFLOXacin 500 MG/D5W 500 MG in PREMIXED 1 EACH IV SCH (14:45)
[2022-06-14] MEDS ORDERED: BLOOD SUGAR DIAGNOSTIC 1 EACH STRIP VI SCH (14:45)
[2022-06-14] MEDS ORDERED: SILVER NITRATE APPLICATOR STICK EACH TP PRN (14:45)
[2022-06-14] MEDS ORDERED: POTASSIUM PHOSPHATE MM IV SCH ×5 (14:45)
[2022-06-14] MEDS ORDERED: GENTAMICIN SULFATE IV SCH (14:45)
[2022-06-14] MEDS ORDERED: PHENOBARBITAL SODIUM 130 MG/1 ML DISP.SYRIN IV SCH (14:45)
[2022-06-14] MEDS ORDERED: SODIUM CHLORIDE IV SCH ×5 (14:45)
[2022-06-14] MEDS: VANCOMYCIN IV 1,000 MG in IV DEXTROSE 5% 250 ML IV SCH (16:00)
[2022-06-14 16:12] VITALS: BP 129/80
[2022-06-14] MEDS: ACETAMINOPHEN 325 MG TABLET GT PRN (17:12)
--- NOTE | 2022-06-14 19:42 | NUR ---
PER MONICA KRAMER CHECK WRITING MACHINE OPERATOR. ASK [facility] FOR THE GTUBE REMOVAL IF ITS OKAY. MONICA KRAMER N.P WILL REMOVED IT.
[2022-06-14 20:48] VITALS: BP 111/69
[2022-06-14] MEDS: PHENOBARBITAL 32.4 MG TABLET JT SCH (21:29)
[2022-06-14] MEDS: DOCUSATE SODIUM 100 MG/10 ML LIQUID UDC GT SCH (21:37)
[2022-06-15 00:04] VITALS: BP 116/71
[2022-06-15] MEDS: METOCLOPRAMIDE HCL 5 MG TABLET JT SCH ×4 (00:40→17:16)
[2022-06-15 04:00] VITALS: BP 139/87
[2022-06-15] MEDS: MEROPENEM 1 G in IV NORMAL SALINE 100 ML IV SCH ×3 (04:18→20:00)
[2022-06-15] MEDS: PANTOPRAZOLE ORAL SUSPENSION 40 MG SUSPDR.PKT JT SCH (06:14)
[2022-06-15 07:26] LABS: HEMATOCRIT 29.9 % (31.2-41.9); MEAN CORPUSCULAR HEMOGLOBIN 28.6 uug (24.7-32.8); MEAN CORPUSCULAR VOLUME 85.1 fL (75.5-95.3); PLATELET COUNT (AUTO) 284 K/uL (179-408)
[2022-06-15 08:00] LABS: CREATININE 0.6 mg/dL (0.6-1.3); POTASSIUM 3.9 mmol/L (3.5-5.1)
[2022-06-15] MEDS: ZINC SULFATE 220 MG CAPSULE GT SCH (09:36)
[2022-06-15] MEDS: MULTIVITAMINS,THERAPEUTIC TABLET JT SCH (09:36)
[2022-06-15] MEDS: BACLOFEN 10 MG TABLET GT SCH ×2 (09:36→21:42)
[2022-06-15] MEDS: ASCORBIC ACID 500 MG TABLET GT SCH (09:36)
[2022-06-15] MEDS: TRAMADOL HCL 50 MG TABLET GT SCH ×2 (09:37→16:05)
[2022-06-15] MEDS: AMANTADINE HCL 100 MG CAPSULE GT SCH (09:37)
[2022-06-15] MEDS: APIXABAN 2.5 MG TABLET JT SCH ×2 (09:37→21:45)
[2022-06-15] MEDS: levETIRAcetam 500 MG/5 ML LIQUID UDC JT SCH ×2 (09:39→21:42)
[2022-06-15] MEDS: PROTEIN SUPPLEMENT (PROSTAT) 30 ML LIQUID GT SCH ×3 (09:40→17:12)
[2022-06-15] MEDS: KETOCONAZOLE 2% CREAM 30 GM TUBE TP SCH (09:40)
[2022-06-15] MEDS: SODIUM HYPOCHLORITE 0.125% (QUARTER STRENGTH) 473 ML BOTTLE TP SCH (09:41)
[2022-06-15] MEDS: THERAHONEY GEL 1.5 OZ TUBE TOP SCH (09:41)
[2022-06-15] MEDS: VANCOMYCIN IV 750 MG in IV DEXTROSE 5% 250 ML IV SCH (09:43)
[2022-06-15] MEDS: GENTAMICIN SULFATE IV SCH (10:55)
[2022-06-15] MEDS: DEXTROSE 5% IV SCH (10:55)
[2022-06-15 11:32] VITALS: BP 137/97
--- NOTE | 2022-06-15 15:22 | NUR ---
Pt. needs total care and noted to be stable through out the shift. Pt. had a BM. Wound care and oral care provided. No s/s of being in pain noted. Will keep monitoring the patient.
[2022-06-15 16:00] VITALS: BP 117/77
[2022-06-15] MEDS: JEVITY 1.2 1000 ML LIQUID JT PRN (17:40)
[2022-06-15] MEDS: DOCUSATE SODIUM 100 MG/10 ML LIQUID UDC GT SCH (21:42)
[2022-06-15] MEDS: PHENOBARBITAL 32.4 MG TABLET JT SCH (21:42)
[2022-06-15 22:05] VITALS: BP 119/87
[2022-06-16 00:21] VITALS: BP 124/77
[2022-06-16] MEDS: DEXTROSE 5% IV SCH ×2 (02:00→17:05)
[2022-06-16] MEDS: GENTAMICIN SULFATE IV SCH ×2 (02:00→17:05)
[2022-06-16] MEDS: MEROPENEM 1 G in IV NORMAL SALINE 100 ML IV SCH ×3 (04:00→21:11)
[2022-06-16 04:09] VITALS: BP 115/61
[2022-06-16] MEDS: PANTOPRAZOLE ORAL SUSPENSION 40 MG SUSPDR.PKT JT SCH (06:00)
[2022-06-16] MEDS: METOCLOPRAMIDE HCL 5 MG TABLET JT SCH ×4 (06:27→17:01)
[2022-06-16 07:01] LABS: HEMATOCRIT 28.7 % (31.2-41.9); MEAN CORPUSCULAR HEMOGLOBIN 29.2 uug (24.7-32.8); MEAN CORPUSCULAR VOLUME 84.5 fL (75.5-95.3); PLATELET COUNT (AUTO) 323 K/uL (179-408)
[2022-06-16 07:26] LABS: CREATININE 0.6 mg/dL (0.6-1.3); POTASSIUM 3.6 mmol/L (3.5-5.1)
[2022-06-16] MEDS: TRAMADOL HCL 50 MG TABLET GT SCH ×2 (08:47→17:02)
[2022-06-16] MEDS: KETOCONAZOLE 2% CREAM 30 GM TUBE TP SCH (08:49)
[2022-06-16] MEDS: levETIRAcetam 500 MG/5 ML LIQUID UDC JT SCH ×2 (08:50→21:11)
[2022-06-16] MEDS: BACLOFEN 10 MG TABLET GT SCH ×2 (08:51→21:12)
[2022-06-16] MEDS: ZINC SULFATE 220 MG CAPSULE GT SCH (08:56)
[2022-06-16] MEDS: MULTIVITAMINS,THERAPEUTIC TABLET JT SCH (08:56)
[2022-06-16] MEDS: ASCORBIC ACID 500 MG TABLET GT SCH (08:56)
[2022-06-16] MEDS: THERAHONEY GEL 1.5 OZ TUBE TOP SCH (08:57)
[2022-06-16] MEDS: SODIUM HYPOCHLORITE 0.125% (QUARTER STRENGTH) 473 ML BOTTLE TP SCH (08:57)
[2022-06-16] MEDS: AMANTADINE HCL 100 MG CAPSULE GT SCH (08:58)
[2022-06-16] MEDS: PROTEIN SUPPLEMENT (PROSTAT) 30 ML LIQUID GT SCH ×3 (08:59→17:02)
[2022-06-16] MEDS: VANCOMYCIN IV 750 MG in IV DEXTROSE 5% 250 ML IV SCH (09:22)
[2022-06-16] MEDS: APIXABAN 2.5 MG TABLET JT SCH ×2 (09:47→21:14)
[2022-06-16] MEDS: JEVITY 1.2 1000 ML LIQUID JT PRN (10:57)
[2022-06-16 11:32] VITALS: BP 126/85
[2022-06-16 15:41] VITALS: BP 106/85
--- NOTE | 2022-06-16 15:45 | NUR ---
Pt. noted to be stable during the shift. No acute distress noted. Oral care and wound treatment provided. On J-tube feeding and able to tolerated. HOB elevated. Will keep monitoring the patient.
[2022-06-16] MEDS: DOCUSATE SODIUM 100 MG/10 ML LIQUID UDC GT SCH (21:11)
[2022-06-16] MEDS: PHENOBARBITAL 32.4 MG TABLET JT SCH (21:12)
[2022-06-16 21:36] VITALS: BP 136/86
[2022-06-17] MEDS: METOCLOPRAMIDE HCL 5 MG TABLET JT SCH ×4 (00:01→17:05)
[2022-06-17 01:00] VITALS: BP 120/76
[2022-06-17 04:00] VITALS: BP 114/75
[2022-06-17] MEDS: MEROPENEM 1 G in IV NORMAL SALINE 100 ML IV SCH ×3 (04:26→20:14)
[2022-06-17] MEDS: PANTOPRAZOLE ORAL SUSPENSION 40 MG SUSPDR.PKT JT SCH (06:00)
[2022-06-17 06:25] LABS: HEMATOCRIT 27.6 % (31.2-41.9); MEAN CORPUSCULAR HEMOGLOBIN 28.3 uug (24.7-32.8); MEAN CORPUSCULAR VOLUME 84.4 fL (75.5-95.3); PLATELET COUNT (AUTO) 299 K/uL (179-408)
[2022-06-17 06:42] LABS: CARBON DIOXIDE 30 mmol/L (21-32); CHLORIDE 101 mmol/L (98-107); CREATININE 0.5 mg/dL (0.6-1.3); GLUCOSE 114 mg/dL (74-106); POTASSIUM 3.8 mmol/L (3.5-5.1); UREA NITROGEN, BLOOD 16 mg/dL (7-18)
[2022-06-17] MEDS: GENTAMICIN SULFATE IV SCH (07:55)
[2022-06-17] MEDS: DEXTROSE 5% IV SCH (07:55)
--- NOTE | 2022-06-17 08:10 | NUR ---
SHIFT NOTE; RECEIVED REPORT FROM AM NURSE PT IS ALERT AND ORIENTED X4 NO SIGNS OF DISTRESS NOTED ASSISTED WITH CARE AND AM CARE. PT TOLERATED WELL NO SIGNS OF DISTRESS NOTED. MEDICATION AND ANTIBIOTIC GIVEN ORDERED NO SIGNS OF ADVERSE REACTION FROM MEDICATION AND ANTIBIOTIC. PT MONITORED EVERY 2 HOURS AND PRN NO SIGNS OF FALL AND SAFETY MAINTAINED. WILL ENDORSE TO AM NURSE.
--- NOTE | 2022-06-17 08:22 | NUR ---
PT WAS GIVEN TYLENOL AT START OF FOR FEVER 99.9.
[2022-06-17] MEDS: ZINC SULFATE 220 MG CAPSULE GT SCH (08:39)
[2022-06-17] MEDS: BACLOFEN 10 MG TABLET GT SCH ×2 (08:39→20:36)
[2022-06-17] MEDS: APIXABAN 2.5 MG TABLET JT SCH ×2 (08:39→21:14)
[2022-06-17] MEDS: ASCORBIC ACID 500 MG TABLET GT SCH (08:39)
[2022-06-17] MEDS: MULTIVITAMINS,THERAPEUTIC TABLET JT SCH (08:39)
[2022-06-17] MEDS: TRAMADOL HCL 50 MG TABLET GT SCH ×2 (08:40→17:05)
[2022-06-17] MEDS: levETIRAcetam 500 MG/5 ML LIQUID UDC JT SCH ×2 (08:40→20:36)
[2022-06-17] MEDS: AMANTADINE HCL 100 MG CAPSULE GT SCH (08:41)
[2022-06-17] MEDS: VANCOMYCIN IV 750 MG in IV DEXTROSE 5% 250 ML IV SCH (08:42)
[2022-06-17] MEDS: JEVITY 1.2 1000 ML LIQUID JT PRN (09:00)
[2022-06-17] MEDS: PROTEIN SUPPLEMENT (PROSTAT) 30 ML LIQUID GT SCH ×3 (09:13→17:05)
[2022-06-17] MEDS: THERAHONEY GEL 1.5 OZ TUBE TOP SCH (09:13)
[2022-06-17] MEDS: KETOCONAZOLE 2% CREAM 30 GM TUBE TP SCH (09:13)
[2022-06-17] MEDS: SODIUM HYPOCHLORITE 0.125% (QUARTER STRENGTH) 473 ML BOTTLE TP SCH (09:14)
[2022-06-17 11:40] VITALS: BP 131/86
--- NOTE | 2022-06-17 14:25 | NUR ---
Pt.'s picc line is not working and received order from Stacy Ceballos for Midline insertion.
[2022-06-17 15:47] VITALS: BP 124/86
--- NOTE | 2022-06-17 16:23 | NUR ---
Received an order to remove PICC line on the right upper arm cause did not working. Picc line removed and the tube length was measured after removal and it was 34. No bleeding or discomfort noted during PICC line removal and after. Will keep monitoring the patient.
--- NOTE | 2022-06-17 19:20 | NUR ---
Received patient in bed, awake, eyes open, hob elevated, no s/s of sob no s/s of chest pain, sinus rhythm sinus tachy on tele, saturation 95 to 100%, left upper arm midline patent intact, on JT feeding tolerate well no residual no vomiting noted, had soft BM, tx done on sacral, right buttock wound, on LUIS, rivas cath patent, on portex 7, t piece, suctioned prn with whitish color sputum, rendered good oral care, turn and reposition for comfort, cont to monitor.
[2022-06-17] MEDS: DOCUSATE SODIUM 100 MG/10 ML LIQUID UDC GT SCH (20:35)
[2022-06-17] MEDS: PHENOBARBITAL 32.4 MG TABLET JT SCH (20:37)
[2022-06-17] MEDS: ACETAMINOPHEN 325 MG TABLET GT PRN (20:47)
[2022-06-17 23:50] VITALS: BP 129/91
[2022-06-18] VITALS: BP 139/86
[2022-06-18] MEDS: GENTAMICIN SULFATE IV SCH ×2 (00:27→16:09)
[2022-06-18] MEDS: DEXTROSE 5% IV SCH ×2 (00:27→16:09)
[2022-06-18] MEDS: METOCLOPRAMIDE HCL 5 MG TABLET JT SCH ×4 (00:27→17:25)
[2022-06-18] MEDS: MEROPENEM 1 G in IV NORMAL SALINE 100 ML IV SCH ×3 (03:34→20:16)
--- NOTE | 2022-06-18 04:05 | NUR ---
Patient sleep intermittently, hob elevate, feeding tolerate well, sinus rhythm sinus tachy, no s/s of pain or discomfort, tolerate feeding well, no n/v noted, no diarrhea, no s/s of pain, v/s stable, cont to monitor.
[2022-06-18 05:30] VITALS: BP 116/74
[2022-06-18] MEDS: PANTOPRAZOLE ORAL SUSPENSION 40 MG SUSPDR.PKT JT SCH (05:36)
[2022-06-18] MEDS: ACETAMINOPHEN 325 MG TABLET GT PRN (05:43)
[2022-06-18 08:15] LABS: HEMATOCRIT 28.7 % (31.2-41.9); MEAN CORPUSCULAR HEMOGLOBIN 28.3 uug (24.7-32.8); MEAN CORPUSCULAR VOLUME 83.8 fL (75.5-95.3); PLATELET COUNT (AUTO) 324 K/uL (179-408)
[2022-06-18 08:38] LABS: CREATININE 0.6 mg/dL (0.6-1.3); VANCOMYCIN,TROUGH 6.7 ug/mL (12.0-20.0)
[2022-06-18] MEDS: KETOCONAZOLE 2% CREAM 30 GM TUBE TP SCH (09:00)
[2022-06-18] MEDS: THERAHONEY GEL 1.5 OZ TUBE TOP SCH (09:00)
[2022-06-18] MEDS: PROTEIN SUPPLEMENT (PROSTAT) 30 ML LIQUID GT SCH ×3 (09:00→17:25)
[2022-06-18] MEDS: SODIUM HYPOCHLORITE 0.125% (QUARTER STRENGTH) 473 ML BOTTLE TP SCH (09:00)
[2022-06-18] MEDS: levETIRAcetam 500 MG/5 ML LIQUID UDC JT SCH ×2 (10:15→20:16)
[2022-06-18] MEDS: AMANTADINE HCL 100 MG CAPSULE GT SCH (10:15)
[2022-06-18] MEDS: ASCORBIC ACID 500 MG TABLET GT SCH (10:16)
[2022-06-18] MEDS: MULTIVITAMINS,THERAPEUTIC TABLET JT SCH (10:16)
[2022-06-18] MEDS: TRAMADOL HCL 50 MG TABLET GT SCH ×2 (10:16→17:25)
[2022-06-18] MEDS: BACLOFEN 10 MG TABLET GT SCH ×2 (10:16→20:22)
[2022-06-18] MEDS: ZINC SULFATE 220 MG CAPSULE GT SCH (10:16)
[2022-06-18] MEDS: APIXABAN 2.5 MG TABLET JT SCH ×2 (10:17→21:39)
[2022-06-18] MEDS: VANCOMYCIN IV 750 MG in IV DEXTROSE 5% 250 ML IV SCH (10:45)
[2022-06-18 11:43] VITALS: BP 112/79
--- NOTE | 2022-06-18 12:36 | NUR ---
J-tube is occluded, holding medications due to this. Ordered KUB to check J tube placement. Sent the results to Dr Garsia. Stacy Ceballos is aware. Waiting for his response at the moment.
[2022-06-18] MEDS: ACIDOPHILUS/BULGARICUS CHEW TAB GT SCH ×2 (15:12→21:38)
[2022-06-18 16:00] VITALS: BP 131/90
[2022-06-18] MEDS: JEVITY 1.2 1000 ML LIQUID JT PRN (17:11)
[2022-06-18] MEDS: IV D5 1/2 NS 1000 ML 1,000 ML IV PRN (18:15)
[2022-06-18] MEDS: DOCUSATE SODIUM 100 MG/10 ML LIQUID UDC GT SCH (20:16)
[2022-06-18] MEDS: PHENOBARBITAL 32.4 MG TABLET JT SCH (20:18)
[2022-06-18 21:04] VITALS: BP 126/79
--- NOTE | 2022-06-18 21:35 | NUR ---
Received patient in bed, noted that old GT is leaking with yellow color liquid in large amount, dressing changed on GT and JT site, kept site clean and dry, cont to monitor.
[2022-06-18] MEDS: METOPROLOL TARTRATE 5 MG/5 ML VIAL IVP PRN (21:41)
--- NOTE | 2022-06-18 22:12 | NUR ---
Patient heart rate 150 sustained, given Metroprolol 5mg iv with effective results . heart rate now 118 to 121.
--- NOTE | 2022-06-18 23:45 | NUR ---
Notify Stacy Ceballos BIOFUELS PROCESSING TECHNICIAN that patient old GT been leaking again approx 760cc, and episode of vomit with yellow color vomitus in small amount, Stacy ordered to hold JT feeding at this time, kept site clean and dry. cont to monitor.
[2022-06-19] MEDS: ACETAMINOPHEN 650 MG SUPP.RECT RC PRN (00:30)
[2022-06-19] MEDS: METOCLOPRAMIDE HCL 5 MG TABLET JT SCH ×5 (00:30→23:32)
[2022-06-19 00:32] VITALS: BP 120/76
--- NOTE | 2022-06-19 00:34 | NUR ---
Patient has temp 100.1 cooling measure given, tylenol supp will be given, cont to monitor.
[2022-06-19] MEDS: VANCOMYCIN IV 750 MG in IV DEXTROSE 5% 250 ML IV SCH ×2 (02:32→21:16)
[2022-06-19 04:30] VITALS: BP 115/62
[2022-06-19] MEDS: MEROPENEM 1 G in IV NORMAL SALINE 100 ML IV SCH ×3 (04:33→20:30)
[2022-06-19] MEDS: ACIDOPHILUS/BULGARICUS CHEW TAB GT SCH ×3 (05:05→21:16)
[2022-06-19] MEDS: PANTOPRAZOLE ORAL SUSPENSION 40 MG SUSPDR.PKT JT SCH (05:05)
[2022-06-19] MEDS: GENTAMICIN SULFATE IV SCH ×2 (05:42→20:30)
[2022-06-19] MEDS: DEXTROSE 5% IV SCH ×2 (05:42→20:30)
[2022-06-19] MEDS: METOPROLOL TARTRATE 5 MG/5 ML VIAL IVP PRN ×2 (05:43→21:59)
--- NOTE | 2022-06-19 05:56 | NUR ---
current temp 99.1, heart rate still more than 120, given Metroprolol 5mg iv as ordered, Patient old GT still draining with yellow color fluids approx 350cc every 2 to 3 hrs, tx done patient Old Gt excoriation, JT patent able to give meds without difficultiy, cont to monitor.
[2022-06-19 07:09] LABS: HEMATOCRIT 32.1 % (31.2-41.9); MEAN CORPUSCULAR HEMOGLOBIN 28.5 uug (24.7-32.8); MEAN CORPUSCULAR VOLUME 83.7 fL (75.5-95.3); PLATELET COUNT (AUTO) 361 K/uL (179-408)
[2022-06-19 07:33] LABS: CREATININE 0.7 mg/dL (0.6-1.3); POTASSIUM 3.8 mmol/L (3.5-5.1)
[2022-06-19] MEDS: PROTEIN SUPPLEMENT (PROSTAT) 30 ML LIQUID GT SCH ×3 (09:00→18:02)
[2022-06-19 10:11] VITALS: BP 115/74
[2022-06-19] MEDS: BACLOFEN 10 MG TABLET GT SCH ×2 (10:31→20:32)
[2022-06-19] MEDS: TRAMADOL HCL 50 MG TABLET GT SCH ×2 (10:31→18:02)
[2022-06-19] MEDS: ZINC SULFATE 220 MG CAPSULE GT SCH (10:31)
[2022-06-19] MEDS: levETIRAcetam 500 MG/5 ML LIQUID UDC JT SCH ×2 (10:32→20:31)
[2022-06-19] MEDS: AMANTADINE HCL 100 MG CAPSULE GT SCH (10:32)
[2022-06-19] MEDS: ASCORBIC ACID 500 MG TABLET GT SCH (10:32)
[2022-06-19] MEDS: ACETAMINOPHEN 325 MG TABLET GT PRN (10:32)
[2022-06-19] MEDS: MULTIVITAMINS,THERAPEUTIC TABLET JT SCH (10:32)
[2022-06-19] MEDS: APIXABAN 2.5 MG TABLET JT SCH ×2 (10:34→20:33)
[2022-06-19] MEDS: KETOCONAZOLE 2% CREAM 30 GM TUBE TP SCH (11:05)
[2022-06-19] MEDS: THERAHONEY GEL 1.5 OZ TUBE TOP SCH (11:05)
[2022-06-19] MEDS: SODIUM HYPOCHLORITE 0.125% (QUARTER STRENGTH) 473 ML BOTTLE TP SCH (11:05)
[2022-06-19 12:55] VITALS: BP 128/77
[2022-06-19] MEDS: IV D5 1/2 NS 1000 ML 1,000 ML IV PRN (13:22)
[2022-06-19 15:52] VITALS: BP 122/76
--- NOTE | 2022-06-19 19:58 | NUR ---
RECEIVED REPORT FROM HI FERNANDO SHIFT RN. PATIENT IS ALERT & ORIENTED X1 AND APHASIC. FLAT AFFECT NOTED. PATIENT TOLERATES JT AND IV MEDICATIONS WELL. FEEDING HELD PER MD ORDER. PATIENT ALBA CATHETER PATENT AND DRAINING. PATIENT HAD 2 DIARRHEAL BOWEL MOVEMENTS. RN COMPLETED DRESSING CHANGES PER MD ORDER X2. PATIENT VITAL SIGNS WITH NORMAL LIMITS WITH THE EXCEPTION OF A FEVER NOTED AT 102.1*F. RN NOTIFIED MONICA KRAMER NP. ELOCUTION TEACHER ORDERED CT SCAN OF ABDOMEN. CT SCAN COMPLETED. RESULTS PENDING. RN ADMIN TYLENOL FOR FEVER MANAGEMENT. PATIENT'S FEVER WENT DOWN LATER ON THE DAY. J TUBE PATENT AND ABLE TO ADMIN MEDICATIONS. NO RESIDUAL VOLUME NOTED. NO ACUTE DISTRESS NOTED DURING SHIFT. HOURLY ROUNDING COMPLETED. CALLED FAMILY, GRANDMOTHER, PER REQUEST TO UPDATE ON PATIENT'S CURRENT CONDITION. BED IN LOW CONDITION. ALL NEEDS MET AT THIS TIME. RN ENDORSED CARE TO TEDDY SCHREIBER.
[2022-06-19 20:03] VITALS: BP 126/81
[2022-06-19] MEDS: DOCUSATE SODIUM 100 MG/10 ML LIQUID UDC GT SCH (20:31)
[2022-06-19] MEDS: PHENOBARBITAL 32.4 MG TABLET JT SCH (20:32)
[2022-06-20 00:34] VITALS: BP 125/79
[2022-06-20 04:00] VITALS: BP 130/86
[2022-06-20] MEDS: MEROPENEM 1 G in IV NORMAL SALINE 100 ML IV SCH ×3 (04:00→19:58)
[2022-06-20] MEDS: METOPROLOL TARTRATE 5 MG/5 ML VIAL IVP PRN (05:04)
[2022-06-20] MEDS: ACIDOPHILUS/BULGARICUS CHEW TAB GT SCH ×3 (05:20→22:26)
[2022-06-20] MEDS: METOCLOPRAMIDE HCL 5 MG TABLET JT SCH ×3 (05:20→20:27)
[2022-06-20 06:30] LABS: HEMATOCRIT 30.7 % (31.2-41.9); MEAN CORPUSCULAR HEMOGLOBIN 27.7 uug (24.7-32.8); MEAN CORPUSCULAR VOLUME 83.5 fL (75.5-95.3); PLATELET COUNT (AUTO) 327 K/uL (179-408)
[2022-06-20 06:37] LABS: CARBON DIOXIDE 27 mmol/L (21-32); CHLORIDE 98 mmol/L (98-107); CREATININE 0.5 mg/dL (0.6-1.3); GLUCOSE 103 mg/dL (74-106); POTASSIUM 3.3 mmol/L (3.5-5.1); UREA NITROGEN, BLOOD 15 mg/dL (7-18)
[2022-06-20] MEDS: IV D5 1/2 NS 1000 ML 1,000 ML IV PRN (07:00)
[2022-06-20] MEDS: AMANTADINE HCL 100 MG CAPSULE GT SCH (09:00)
[2022-06-20] MEDS: BACLOFEN 10 MG TABLET GT SCH ×2 (09:00→20:07)
[2022-06-20] MEDS: THERAHONEY GEL 1.5 OZ TUBE TOP SCH (09:00)
[2022-06-20] MEDS: ZINC SULFATE 220 MG CAPSULE GT SCH (09:00)
[2022-06-20] MEDS: SODIUM HYPOCHLORITE 0.125% (QUARTER STRENGTH) 473 ML BOTTLE TP SCH (09:00)
[2022-06-20] MEDS: KETOCONAZOLE 2% CREAM 30 GM TUBE TP SCH (09:00)
[2022-06-20] MEDS: MULTIVITAMINS,THERAPEUTIC TABLET JT SCH (09:00)
[2022-06-20] MEDS: TRAMADOL HCL 50 MG TABLET GT SCH ×2 (09:00→17:00)
[2022-06-20] MEDS: APIXABAN 2.5 MG TABLET JT SCH ×2 (09:00→20:29)
[2022-06-20] MEDS: levETIRAcetam 500 MG/5 ML LIQUID UDC JT SCH ×2 (09:00→20:12)
[2022-06-20] MEDS: PROTEIN SUPPLEMENT (PROSTAT) 30 ML LIQUID GT SCH ×3 (09:00→17:00)
[2022-06-20] MEDS: ASCORBIC ACID 500 MG TABLET GT SCH (09:00)
[2022-06-20] MEDS ORDERED: POTASSIUM CHLORIDE 20 MEQ TAB.PRT.SR PO ONE (09:45)
[2022-06-20 11:40] VITALS: BP 127/82
[2022-06-20] MEDS: POTASSIUM CHLORIDE 50 ML IV SCH ×2 (11:45→13:44)
[2022-06-20] MEDS: GENTAMICIN SULFATE IV SCH (12:00)
[2022-06-20] MEDS: DEXTROSE 5% IV SCH (12:00)
[2022-06-20] MEDS: CLONIDINE-TTS 1 PATCH TD SCH (13:00)
[2022-06-20] MEDS: VANCOMYCIN IV 750 MG in IV DEXTROSE 5% 250 ML IV SCH (15:22)
[2022-06-20 15:44] VITALS: BP 148/85
--- NOTE | 2022-06-20 19:35 | NUR ---
Received patient in bed, awake eyes open, no s/s of pain, no chest pain noted, hob elevated, JT feeding on hold at this time, old gt still draining with clear yellow color fluids in moderate amount. No n/v noted, had soft BM, sinus rhythm sinus tachy on tele , suctioned with yellow whitish color sputum in moderate amount, tx continue on multiple wounds, cont to monitor.
[2022-06-20 20:00] VITALS: BP 139/85
[2022-06-20] MEDS: DOCUSATE SODIUM 100 MG/10 ML LIQUID UDC GT SCH (20:07)
[2022-06-20] MEDS: PHENOBARBITAL 32.4 MG TABLET JT SCH (20:12)
[2022-06-21] VITALS: BP 124/78
[2022-06-21] MEDS: METOCLOPRAMIDE HCL 5 MG TABLET JT SCH ×4 (00:08→23:32)
[2022-06-21] MEDS: DEXTROSE 5% IV SCH ×2 (02:10→19:00)
[2022-06-21] MEDS: GENTAMICIN SULFATE IV SCH ×2 (02:10→19:00)
[2022-06-21] MEDS: MEROPENEM 1 G in IV NORMAL SALINE 100 ML IV SCH ×3 (03:49→20:21)
[2022-06-21 04:00] VITALS: BP 126/80
[2022-06-21] MEDS: ACIDOPHILUS/BULGARICUS CHEW TAB GT SCH ×3 (05:06→21:40)
[2022-06-21] MEDS: ACETAMINOPHEN 325 MG TABLET GT PRN ×2 (05:31→23:32)
[2022-06-21] MEDS: METOPROLOL TARTRATE 5 MG/5 ML VIAL IVP PRN ×2 (05:32→23:33)
[2022-06-21 08:00] VITALS: BP 112/80
[2022-06-21] MEDS: APIXABAN 2.5 MG TABLET JT SCH ×2 (09:00→20:34)
[2022-06-21] MEDS: ASCORBIC ACID 500 MG TABLET GT SCH (09:00)
[2022-06-21] MEDS: ZINC SULFATE 220 MG CAPSULE GT SCH (09:00)
[2022-06-21] MEDS: AMANTADINE HCL 100 MG CAPSULE GT SCH (09:00)
[2022-06-21] MEDS: PROTEIN SUPPLEMENT (PROSTAT) 30 ML LIQUID GT SCH ×2 (09:00→19:00)
[2022-06-21] MEDS: BACLOFEN 10 MG TABLET GT SCH ×2 (09:00→20:10)
[2022-06-21 09:08] LABS: HEMATOCRIT 26.5 % (31.2-41.9); MEAN CORPUSCULAR VOLUME 82.3 fL (75.5-95.3); PLATELET COUNT (AUTO) 308 K/uL (179-408)
[2022-06-21 09:17] LABS: CREATININE 0.6 mg/dL (0.6-1.3); POTASSIUM 3.2 mmol/L (3.5-5.1)
[2022-06-21 12:02] VITALS: BP 113/75
[2022-06-21] MEDS: IV D5 1/2 NS 1000 ML 1,000 ML IV PRN (14:42)
[2022-06-21 16:14] VITALS: BP 145/84
--- NOTE | 2022-06-21 18:00 | NUR ---
TUUBE FEEDING INITIATED PER VIA STACY. HOB 30 DEGREES. T IS TACHYCARDIC 126. COUGH PRODUCTIVE PT SUCTIONED. TOLERATED PROCEDURE. O2SAT 99.
[2022-06-21] MEDS: KETOCONAZOLE 2% CREAM 30 GM TUBE TP SCH (19:00)
[2022-06-21] MEDS: TRAMADOL HCL 50 MG TABLET GT SCH (19:00)
[2022-06-21] MEDS: VANCOMYCIN IV 750 MG in IV DEXTROSE 5% 250 ML IV SCH (19:00)
[2022-06-21] MEDS: MULTIVITAMINS,THERAPEUTIC TABLET JT SCH (19:00)
[2022-06-21] MEDS: NUTRISOURCE FIBER 4 GM PACKET PO SCH (19:00)
[2022-06-21] MEDS: SODIUM HYPOCHLORITE 0.125% (QUARTER STRENGTH) 473 ML BOTTLE TP SCH (19:00)
[2022-06-21] MEDS: THERAHONEY GEL 1.5 OZ TUBE TOP SCH (19:00)
--- NOTE | 2022-06-21 19:30 | NUR ---
Received patient awake eyes open, hob elevated, no s/s of pain, no s/s of sob noted at this time, old GT still drains yellow color fluid in small amount at this time tx done as ordered, JT feeding resume by AM RN tolerate well, no n/v no diarrhea noted, no leaking noted on JT site, patient still tachy 120 to 140, will medicate as ordered, kept clean dry and comfortable.
[2022-06-21 20:00] VITALS: BP 125/88
[2022-06-21] MEDS: levETIRAcetam 500 MG/5 ML LIQUID UDC JT SCH (20:09)
[2022-06-21] MEDS: DOCUSATE SODIUM 100 MG/10 ML LIQUID UDC GT SCH (20:09)
[2022-06-21] MEDS: PHENOBARBITAL 32.4 MG TABLET JT SCH (20:11)
--- NOTE | 2022-06-21 22:08 | NUR ---
BLOOD TRANSFUSION IN PROGRESS WITHOUT S/S OF ADVERSE REACTION. WILL CONTINUE TO MONITOR VS. HOB AT 30 DEGREE. S/P CATH IS INTACT AND PATENT. Addendum: 06/21/22 at 2212 by REGISTRY [id number] RN ENVIRONMENT COORDINATOR ERROR. PLEASE DISREGARD JACQUELINON
--- NOTE | 2022-06-21 23:35 | NUR ---
Patient has elevated heart rate of above 130, given lopressor with effective results. cont to monitor.
[2022-06-22] VITALS: BP 129/78
[2022-06-22] MEDS: VANCOMYCIN IV 750 MG in IV DEXTROSE 5% 250 ML IV SCH (03:38)
[2022-06-22 04:00] VITALS: BP 122/74
[2022-06-22] MEDS: MEROPENEM 1 G in IV NORMAL SALINE 100 ML IV SCH ×3 (04:19→19:49)
[2022-06-22] MEDS: ACIDOPHILUS/BULGARICUS CHEW TAB GT SCH ×3 (05:10→22:36)
[2022-06-22] MEDS: METOCLOPRAMIDE HCL 5 MG TABLET JT SCH ×3 (05:10→17:06)
--- NOTE | 2022-06-22 07:29 | NUR ---
Patient awake no s/s of pain nor discomfort, heart rate of low 99 to 128 at this time, cont to monitor. kept comfortable.
[2022-06-22 08:12] LABS: HEMATOCRIT 30.1 % (31.2-41.9); MEAN CORPUSCULAR HEMOGLOBIN 27.8 uug (24.7-32.8); MEAN CORPUSCULAR VOLUME 82.7 fL (75.5-95.3); PLATELET COUNT (AUTO) 355 K/uL (179-408)
[2022-06-22 08:13] LABS: CREATININE 0.6 mg/dL (0.6-1.3); POTASSIUM 3.1 mmol/L (3.5-5.1)
[2022-06-22] MEDS: ASCORBIC ACID 500 MG TABLET GT SCH (08:53)
[2022-06-22] MEDS: BACLOFEN 10 MG TABLET GT SCH ×2 (08:53→20:11)
[2022-06-22] MEDS: ZINC SULFATE 220 MG CAPSULE GT SCH (08:53)
[2022-06-22] MEDS: TRAMADOL HCL 50 MG TABLET GT SCH ×2 (08:53→16:37)
[2022-06-22] MEDS: levETIRAcetam 500 MG/5 ML LIQUID UDC JT SCH ×2 (08:53→20:17)
[2022-06-22] MEDS: APIXABAN 2.5 MG TABLET JT SCH ×2 (08:54→20:13)
[2022-06-22] MEDS: PROTEIN SUPPLEMENT (PROSTAT) 30 ML LIQUID GT SCH ×3 (08:58→16:38)
[2022-06-22] MEDS: AMANTADINE HCL 100 MG CAPSULE GT SCH (08:58)
[2022-06-22] MEDS: NUTRISOURCE FIBER 4 GM PACKET PO SCH ×2 (08:58→16:38)
[2022-06-22] MEDS: MULTIVITAMINS,THERAPEUTIC TABLET JT SCH (08:58)
[2022-06-22] MEDS: SODIUM HYPOCHLORITE 0.125% (QUARTER STRENGTH) 473 ML BOTTLE TP SCH (08:59)
[2022-06-22] MEDS: THERAHONEY GEL 1.5 OZ TUBE TOP SCH (08:59)
[2022-06-22] MEDS: KETOCONAZOLE 2% CREAM 30 GM TUBE TP SCH (08:59)
[2022-06-22] MEDS: GENTAMICIN SULFATE IV SCH (09:46)
[2022-06-22] MEDS: DEXTROSE 5% IV SCH (09:46)
[2022-06-22] MEDS ORDERED: POTASSIUM CHLORIDE 20 MEQ POWDER PACKET JT ONE (10:30)
[2022-06-22 11:28] VITALS: BP 141/85
[2022-06-22] MEDS: JEVITY 1.2 1000 ML LIQUID JT PRN (13:01)
[2022-06-22] MEDS: IV D5 1/2 NS 1000 ML 1,000 ML IV PRN (13:01)
[2022-06-22 15:27] VITALS: BP 125/82
--- NOTE | 2022-06-22 17:30 | NUR ---
Dressing changed on Right hip with Dakins as instructed by wound care nurse directions. Right hip wound has discolored with odor noted. Sloughing noted as well.
--- NOTE | 2022-06-22 19:30 | NUR ---
Received Pt from Day shift. Pt is A&Ox0. Pt's eyes are open, but uncoordinated. Pt on Rm Air. SR-ST on tele. Was informed of nephrostomy insertion tomorrow. Will get consent from next of kin. Safety measures in place. Will continue to monitor.
[2022-06-22 20:00] VITALS: BP 135/86
[2022-06-22] MEDS: PHENOBARBITAL 32.4 MG TABLET JT SCH (20:14)
[2022-06-22] MEDS: DOCUSATE SODIUM 100 MG/10 ML LIQUID UDC GT SCH (20:17)
[2022-06-22] MEDS: METOPROLOL TARTRATE 5 MG/5 ML VIAL IVP PRN (22:37)
--- NOTE | 2022-06-22 23:30 | NUR ---
Received consent for CT percutaneous nephrostomy from Pt's next of kin, Noah Bray, Pt's grandmother, via telephone @ [phone]. Consent verified by Mich (TEDDY).
[2022-06-23] VITALS: BP 120/77
--- NOTE | 2022-06-23 00:15 | NUR ---
Paused Pt's tube feeding Jevity 1.2 @ 0000 on 06/23for CT percutaneous nephrostomy due later today. Safety measures in place. Will continue to monitor
[2022-06-23] MEDS: METOCLOPRAMIDE HCL 5 MG TABLET JT SCH ×5 (00:19→23:17)
[2022-06-23] MEDS: ACETAMINOPHEN 325 MG TABLET GT PRN (00:20)
[2022-06-23 04:00] VITALS: BP 105/86
[2022-06-23] MEDS: MEROPENEM 1 G in IV NORMAL SALINE 100 ML IV SCH ×3 (04:06→21:03)
--- NOTE | 2022-06-23 05:23 | NUR ---
Dressing changed on right buttocks-cleanse with N/S. Pat dry. Apply dakin's-moistened gauze and cover with optifoam dressing. Sacrum- cleanse with N/S. Pat dry. Apply optifoam dressing. Right great toe- cleans with N/S. Pat dry. Mepilex foam & offload. Left lateral ankle-cleanse with N/S. Pat dry. Mepilex foam & offload. Safety measures in place. Will continue to monitor.
[2022-06-23] MEDS: ACIDOPHILUS/BULGARICUS CHEW TAB GT SCH ×3 (05:30→21:40)
--- NOTE | 2022-06-23 06:40 | NUR ---
End of Shift Note: shift. Pt is A&Ox0. Pt's eyes are open, but uncoordinated. Pt on Rm Air. SR-ST on tele. Pt has consent for CT percutaneous nephrostomy due today. Jevity 1.2 has been put on hold since 0000 today. Changed dressings for sacrum, right buttocks, right great toe, and left lateral ankle. Safety measures in place. Will continue to monitor.
[2022-06-23 07:35] LABS: HEMATOCRIT 30.1 % (31.2-41.9); MEAN CORPUSCULAR HEMOGLOBIN 27.2 uug (24.7-32.8); MEAN CORPUSCULAR VOLUME 83.5 fL (75.5-95.3); PLATELET COUNT (AUTO) 341 K/uL (179-408)
[2022-06-23 07:41] LABS: CREATININE 0.6 mg/dL (0.6-1.3); POTASSIUM 3.6 mmol/L (3.5-5.1)
[2022-06-23] MEDS: MULTIVITAMINS,THERAPEUTIC TABLET JT SCH (09:00)
[2022-06-23] MEDS: ASCORBIC ACID 500 MG TABLET GT SCH (09:00)
[2022-06-23] MEDS: APIXABAN 2.5 MG TABLET JT SCH ×2 (09:00→21:05)
[2022-06-23] MEDS: TRAMADOL HCL 50 MG TABLET GT SCH ×2 (09:00→16:51)
[2022-06-23] MEDS: THERAHONEY GEL 1.5 OZ TUBE TOP SCH (09:00)
[2022-06-23] MEDS: BACLOFEN 10 MG TABLET GT SCH ×2 (09:00→21:03)
[2022-06-23] MEDS: NUTRISOURCE FIBER 4 GM PACKET PO SCH ×2 (09:00→16:51)
[2022-06-23] MEDS: KETOCONAZOLE 2% CREAM 30 GM TUBE TP SCH (09:00)
[2022-06-23] MEDS: ZINC SULFATE 220 MG CAPSULE GT SCH (09:00)
[2022-06-23] MEDS: AMANTADINE HCL 100 MG CAPSULE GT SCH (09:00)
[2022-06-23] MEDS: PROTEIN SUPPLEMENT (PROSTAT) 30 ML LIQUID GT SCH ×3 (09:00→16:51)
[2022-06-23 11:01] VITALS: BP 109/70
[2022-06-23] MEDS: SODIUM HYPOCHLORITE 0.125% (QUARTER STRENGTH) 473 ML BOTTLE TP SCH (11:13)
[2022-06-23] MEDS: levETIRAcetam 500 MG/5 ML LIQUID UDC JT SCH ×2 (11:13→21:04)
--- NOTE | 2022-06-23 14:29 | NUR ---
Communicated with RN 3rd floor. CT Percu Nephrostomy canceled by Radiologist Dr. Dupont. contact number: [phone]
[2022-06-23 16:00] VITALS: BP 155/91
[2022-06-23] MEDS: METOPROLOL TARTRATE 5 MG/5 ML VIAL IVP PRN (16:51)
--- NOTE | 2022-06-23 19:50 | NUR ---
RECEIVED PATIENT IN BED, AWAKE EYES OPEN, NO S/S OF SOB, NO S/S OF CHEST PAIN, SINUS RHYTHM SINUS TACHY, OLD GT STILL DRAINS CLEAR YELLOWISH COLOR IN SMALL AMOUNT, JT PATENT, TOLERATE FEEDING WELL NO RESIDUAL NOTED, AFEBRILE, TX CONT ON MULTIPLE WOUNDS, CONT TO MONITOR.
[2022-06-23 20:00] VITALS: BP 111/77
[2022-06-23] MEDS: MICAFUNGIN SODIUM 100 MG in IV NORMAL SALINE 100 ML IV SCH (20:58)
[2022-06-23] MEDS: DOCUSATE SODIUM 100 MG/10 ML LIQUID UDC GT SCH (21:03)
[2022-06-23] MEDS: PHENOBARBITAL 32.4 MG TABLET JT SCH (21:04)
[2022-06-23] MEDS: CLOTRIMAZOLE/BETAMET DIPROP CREAM 15 GM TUBE TOP SCH (23:00)
[2022-06-24] VITALS: BP 117/77
--- NOTE | 2022-06-24 01:10 | NUR ---
LOTRISONE CREAM NOT GIVEN, MEDS UNAVAILABLE. WILL FOLLOW UP IN AM WITH PHARMACY.
[2022-06-24] MEDS: MEROPENEM 1 G in IV NORMAL SALINE 100 ML IV SCH ×3 (03:44→20:37)
[2022-06-24] MEDS: ACIDOPHILUS/BULGARICUS CHEW TAB GT SCH ×3 (05:05→21:00)
[2022-06-24] MEDS: METOCLOPRAMIDE HCL 5 MG TABLET JT SCH ×3 (05:05→16:57)
[2022-06-24] MEDS: ACETAMINOPHEN 325 MG TABLET GT PRN ×2 (05:07→20:38)
[2022-06-24] MEDS: JEVITY 1.2 1000 ML LIQUID JT PRN (05:59)
--- NOTE | 2022-06-24 06:08 | NUR ---
Patient given tylenol 650mg via gt for pain and comfort, heart rate ranges from 100-127, old gt still with moderate amount of drainage yellow white color fluids, kept clean and dry, afebrile at this time.
[2022-06-24 06:42] VITALS: BP 120/71
[2022-06-24] MEDS: BACLOFEN 10 MG TABLET GT SCH ×2 (07:07→20:38)
[2022-06-24 07:14] LABS: CARBON DIOXIDE 32 mmol/L (21-32); CHLORIDE 100 mmol/L (98-107); CREATININE 0.5 mg/dL (0.6-1.3); GLUCOSE 109 mg/dL (74-106); POTASSIUM 3.8 mmol/L (3.5-5.1); UREA NITROGEN, BLOOD 12 mg/dL (7-18)
[2022-06-24 07:20] LABS: HEMATOCRIT 28.9 % (31.2-41.9); MEAN CORPUSCULAR HEMOGLOBIN 27.4 uug (24.7-32.8); PLATELET COUNT (AUTO) 332 K/uL (179-408)
[2022-06-24] MEDS: MULTIVITAMINS,THERAPEUTIC TABLET JT SCH (09:53)
[2022-06-24] MEDS: ASCORBIC ACID 500 MG TABLET GT SCH (09:53)
[2022-06-24] MEDS: ZINC SULFATE 220 MG CAPSULE GT SCH (09:53)
[2022-06-24] MEDS: TRAMADOL HCL 50 MG TABLET GT SCH ×2 (09:54→16:52)
[2022-06-24] MEDS: APIXABAN 2.5 MG TABLET JT SCH ×2 (09:55→20:40)
[2022-06-24] MEDS: PROTEIN SUPPLEMENT (PROSTAT) 30 ML LIQUID GT SCH ×3 (09:56→16:52)
[2022-06-24] MEDS: levETIRAcetam 500 MG/5 ML LIQUID UDC JT SCH ×2 (09:56→20:41)
[2022-06-24] MEDS: CLOTRIMAZOLE/BETAMET DIPROP CREAM 15 GM TUBE TOP SCH ×2 (09:57→22:16)
[2022-06-24] MEDS: NUTRISOURCE FIBER 4 GM PACKET PO SCH ×2 (09:57→16:53)
[2022-06-24] MEDS: THERAHONEY GEL 1.5 OZ TUBE TOP SCH (09:58)
[2022-06-24] MEDS: KETOCONAZOLE 2% CREAM 30 GM TUBE TP SCH (09:58)
[2022-06-24] MEDS: SODIUM HYPOCHLORITE 0.125% (QUARTER STRENGTH) 473 ML BOTTLE TP SCH (09:58)
[2022-06-24] MEDS: AMANTADINE HCL 100 MG CAPSULE GT SCH (09:59)
[2022-06-24 11:34] VITALS: BP 113/79
--- NOTE | 2022-06-24 15:00 | NUR ---
TEXT DR. ENRIQUEZ FOR MRI APPROVAL.
[2022-06-24 15:16] VITALS: BP 138/90
--- NOTE | 2022-06-24 17:45 | NUR ---
AFEBRILE DURING THE SHIFT NO SS OF DISTRESS WITH 6L O2 VIA TRACH. TOLERATING FEEDING AT 60MLS/HR. WOUND CARE DONE ORDERED. NOTED RIGHT HIP WOUND CLEAN AND GRANULATING. ST ON MONITOR
[2022-06-24 20:00] VITALS: BP 120/60
--- NOTE | 2022-06-24 20:00 | NUR ---
Received patient in bed, awake, eyes open, no s/s of sob no s/s of chest pain, patient noted with facial grimacey, turn and reposition, suctioned with yellow color sputum in moderate amount, patient still sinus rhythm sinus tachy up to 127, will medicate for pain and discomfort, rivas cath patent draining with yellow color urine in moderate amount, temp 100.3 cooling measures given, cont to monitor.
[2022-06-24] MEDS: DOCUSATE SODIUM 100 MG/10 ML LIQUID UDC GT SCH (20:37)
[2022-06-24] MEDS: PHENOBARBITAL 32.4 MG TABLET JT SCH (20:41)
[2022-06-24] MEDS: MICAFUNGIN SODIUM 100 MG in IV NORMAL SALINE 100 ML IV SCH (21:00)
[2022-06-25] VITALS: BP 110/75
[2022-06-25] MEDS: METOCLOPRAMIDE HCL 5 MG TABLET JT SCH ×4 (00:52→18:11)
[2022-06-25] MEDS: MEROPENEM 1 G in IV NORMAL SALINE 100 ML IV SCH ×3 (03:52→20:00)
[2022-06-25 04:00] VITALS: BP 106/76
[2022-06-25] MEDS: ACIDOPHILUS/BULGARICUS CHEW TAB GT SCH ×3 (05:39→21:53)
--- NOTE | 2022-06-25 06:28 | NUR ---
Patient asleep but arousable, no s/s of pain at this time, wound culture done. Patient sinus rhythm sinus tachy 100 on tele, kept clean and dry, old GT was drained via gravity with yellowish greenish fluid in small amount, tx done on old gt site cont to monitor.
[2022-06-25 06:47] LABS: HEMATOCRIT 27.9 % (31.2-41.9); MEAN CORPUSCULAR HEMOGLOBIN 27.9 uug (24.7-32.8); MEAN CORPUSCULAR VOLUME 82.1 fL (75.5-95.3); PLATELET COUNT (AUTO) 344 K/uL (179-408)
[2022-06-25 07:20] LABS: CREATININE 0.6 mg/dL (0.6-1.3); MAGNESIUM 2.1 mg/dL (1.8-2.4); PHOSPHOROUS 3.6 mg/dL (2.5-4.9); POTASSIUM 3.6 mmol/L (3.5-5.1)
[2022-06-25] MEDS: ZINC SULFATE 220 MG CAPSULE GT SCH (09:00)
[2022-06-25] MEDS: ASCORBIC ACID 500 MG TABLET GT SCH (09:00)
[2022-06-25] MEDS: levETIRAcetam 500 MG/5 ML LIQUID UDC JT SCH ×2 (09:00→21:54)
[2022-06-25] MEDS: BACLOFEN 10 MG TABLET GT SCH ×2 (09:01→21:53)
[2022-06-25] MEDS: APIXABAN 2.5 MG TABLET JT SCH ×2 (09:01→21:57)
[2022-06-25] MEDS: TRAMADOL HCL 50 MG TABLET GT SCH ×2 (09:02→17:00)
[2022-06-25] MEDS: MULTIVITAMINS,THERAPEUTIC TABLET JT SCH (09:02)
[2022-06-25] MEDS: AMANTADINE HCL 100 MG CAPSULE GT SCH (09:03)
[2022-06-25] MEDS: NUTRISOURCE FIBER 4 GM PACKET PO SCH ×2 (09:05→18:00)
[2022-06-25] MEDS: PROTEIN SUPPLEMENT (PROSTAT) 30 ML LIQUID GT SCH ×3 (09:05→18:00)
[2022-06-25] MEDS: SODIUM HYPOCHLORITE 0.125% (QUARTER STRENGTH) 473 ML BOTTLE TP SCH (09:06)
[2022-06-25] MEDS: THERAHONEY GEL 1.5 OZ TUBE TOP SCH (09:06)
[2022-06-25] MEDS: CLOTRIMAZOLE/BETAMET DIPROP CREAM 15 GM TUBE TOP SCH ×2 (09:06→21:54)
[2022-06-25] MEDS: KETOCONAZOLE 2% CREAM 30 GM TUBE TP SCH (09:07)
[2022-06-25 11:52] VITALS: BP 135/78
--- NOTE | 2022-06-25 12:56 | NUR ---
pt was pick out hand by mukesh anderson. pt will go to [place] for MRI of Abdomen/pelvis
--- NOTE | 2022-06-25 12:59 | NUR ---
1300 meds held. pt is not in the unit.
--- NOTE | 2022-06-25 15:00 | NUR ---
pt came back from [facility].
[2022-06-25 16:03] VITALS: BP 140/76
--- NOTE | 2022-06-25 17:56 | NUR ---
ultram not given. too close from the last dose.
[2022-06-25 20:00] VITALS: BP 143/91
[2022-06-25] MEDS: ACETAMINOPHEN 325 MG TABLET GT PRN (21:53)
[2022-06-25] MEDS: PHENOBARBITAL 32.4 MG TABLET JT SCH (21:54)
[2022-06-25] MEDS: MICAFUNGIN SODIUM 100 MG in IV NORMAL SALINE 100 ML IV SCH (21:54)
[2022-06-25] MEDS: DOCUSATE SODIUM 100 MG/10 ML LIQUID UDC GT SCH (21:55)
[2022-06-26] MEDS: MEROPENEM 1 G in IV NORMAL SALINE 100 ML IV SCH ×2 (04:33→13:29)
[2022-06-26] MEDS: ACIDOPHILUS/BULGARICUS CHEW TAB GT SCH ×2 (05:16→14:33)
[2022-06-26] MEDS: ACETAMINOPHEN 325 MG TABLET GT PRN ×2 (05:16→15:45)
[2022-06-26] MEDS: METOCLOPRAMIDE HCL 5 MG TABLET JT SCH ×4 (05:16→17:10)
--- NOTE | 2022-06-26 07:53 | NUR ---
SHIFT NOTE: RECEIVED REPORT FROM AM NURSE NAIMA PT IS ALERT AND ORIENTED X1 NONVERBAL RESPONDS TO TOUCH. PT HAS ALBA DRAINING YELLOW URINE ALBA CARE GIVEN AND PT HAD A LARGE STOOL WHICH SOIL DRESSING APPLIED A NEW DRESSING. PT HAD TEMP AM 99.8 GAVE 650MG OF TYLENOL FLUSHED GT ORDERED NO SIGNS OF DISTENTION OR EMESIS NOTED. PT IS MONITOR EVERY 2 HOUR SITTING NEXT BY PATIENT DOOR. WILL ENDORSE TO AM NURSE.
[2022-06-26] MEDS: KETOCONAZOLE 2% CREAM 30 GM TUBE TP SCH (09:00)
[2022-06-26] MEDS: PROTEIN SUPPLEMENT (PROSTAT) 30 ML LIQUID GT SCH ×3 (09:00→17:08)
[2022-06-26] MEDS: NUTRISOURCE FIBER 4 GM PACKET PO SCH ×2 (09:00→17:08)
[2022-06-26 10:13] LABS: HEMATOCRIT 29.3 % (31.2-41.9); PLATELET COUNT (AUTO) 349 K/uL (179-408)
[2022-06-26 10:28] LABS: CARBON DIOXIDE 30 mmol/L (21-32); CHLORIDE 99 mmol/L (98-107); CREATININE 0.5 mg/dL (0.6-1.3); GLUCOSE 120 mg/dL (74-106); POTASSIUM 4.1 mmol/L (3.5-5.1); UREA NITROGEN, BLOOD 15 mg/dL (7-18)
[2022-06-26] MEDS: AMANTADINE HCL 100 MG CAPSULE GT SCH (10:57)
[2022-06-26] MEDS: levETIRAcetam 500 MG/5 ML LIQUID UDC JT SCH (10:57)
[2022-06-26] MEDS: MULTIVITAMINS,THERAPEUTIC TABLET JT SCH (10:58)
[2022-06-26] MEDS: BACLOFEN 10 MG TABLET GT SCH (10:58)
[2022-06-26] MEDS: TRAMADOL HCL 50 MG TABLET GT SCH ×2 (10:58→17:07)
[2022-06-26] MEDS: ASCORBIC ACID 500 MG TABLET GT SCH (10:59)
[2022-06-26] MEDS: APIXABAN 2.5 MG TABLET JT SCH (11:12)
[2022-06-26] MEDS: ZINC SULFATE 220 MG CAPSULE GT SCH (11:15)
[2022-06-26 11:55] VITALS: BP 142/77
[2022-06-26] MEDS: THERAHONEY GEL 1.5 OZ TUBE TOP SCH (13:26)
[2022-06-26] MEDS: SODIUM HYPOCHLORITE 0.125% (QUARTER STRENGTH) 473 ML BOTTLE TP SCH (13:27)
[2022-06-26] MEDS: CLOTRIMAZOLE/BETAMET DIPROP CREAM 15 GM TUBE TOP SCH (13:27)
[2022-06-26] MEDS: JEVITY 1.2 1000 ML LIQUID JT PRN (14:23)
[2022-06-26 15:52] VITALS: BP 144/85
[2022-06-26] MEDS ORDERED: ERTA1VIA4 IJ (16:29)
[2022-06-26] MEDS ORDERED: VANC1PLA9 IV (16:29)
--- NOTE | 2022-06-26 20:20 | NUR ---
Vital signs stable. Gtube and trach intact and patent. On 6 LPM O2 via trach. Midline and rivas cath left in place. Discharge paperwork given to Susan. Report given to EMT and RT. Discharged to [facility]. Dayshift TEDDY Richard gave report to Luh at [place]. Safety precautions maintained.
== END 2022-06-26 20:47 | DRG 853 ==
LOC: ER 19:35 → TRANSITION 05-02 02:00 → CCU 05-02 23:27 → TRANSITION 05-10 14:05 → CCU 05-11 18:10 → TELE-TD3 05-22 17:45 → TELE3 05-31 13:01 → MEDSURG3 06-02 12:00 → TELE3 06-03 17:54 → TELE-TD3 06-04 08:44 → TELE3 06-06 10:34
PROVIDERS: ADMIT Nurse Practitioner Acute Care; ATTEND Nurse Practitioner Acute Care
PROC: 02HV33Z Insertion of Infusion Device into Superior Vena Cava, Percutaneous Approach (ICD-10-PCS; 2022-04-30)
PROC: B548ZZA Ultrasonography of Superior Vena Cava, Guidance (ICD-10-PCS; 2022-04-30)
PROC: 06HY33Z Insertion of Infusion Device into Lower Vein, Percutaneous Approach (ICD-10-PCS; principal; 2022-05-02)
PROC: 05H533Z Insertion of Infusion Device into Right Subclavian Vein, Percutaneous Approach (ICD-10-PCS; 2022-05-02)
PROC: B546ZZA Ultrasonography of Right Subclavian Vein, Guidance (ICD-10-PCS; 2022-05-02)
PROC: 5A1955Z Respiratory Ventilation, Greater than 96 Consecutive Hours (ICD-10-PCS; 2022-05-04)
PROC: 02HV33Z Insertion of Infusion Device into Superior Vena Cava, Percutaneous Approach (ICD-10-PCS; 2022-05-13)
PROC: B548ZZA Ultrasonography of Superior Vena Cava, Guidance (ICD-10-PCS; 2022-05-13)
PROC: 0JB73ZZ Excision of Back Subcutaneous Tissue and Fascia, Percutaneous Approach (ICD-10-PCS; 2022-05-14)
PROC: 0KBN3ZZ Excision of Right Hip Muscle, Percutaneous Approach (ICD-10-PCS; 2022-05-21)
PROC: 0JB73ZZ Excision of Back Subcutaneous Tissue and Fascia, Percutaneous Approach (ICD-10-PCS; 2022-05-21)
PROC: 0DHA4UZ Insertion of Feeding Device into Jejunum, Percutaneous Endoscopic Approach (ICD-10-PCS; 2022-06-02)
PROC: 0JB73ZZ Excision of Back Subcutaneous Tissue and Fascia, Percutaneous Approach (ICD-10-PCS; 2022-06-06)
PROC: 0KBN3ZZ Excision of Right Hip Muscle, Percutaneous Approach (ICD-10-PCS; 2022-06-06)
PROC: 0JB73ZZ Excision of Back Subcutaneous Tissue and Fascia, Percutaneous Approach (ICD-10-PCS; 2022-06-13)
PROC: 0KBN3ZZ Excision of Right Hip Muscle, Percutaneous Approach (ICD-10-PCS; 2022-06-13)
PROC: 05H633Z Insertion of Infusion Device into Left Subclavian Vein, Percutaneous Approach (ICD-10-PCS; 2022-06-17)
PROC: B547ZZA Ultrasonography of Left Subclavian Vein, Guidance (ICD-10-PCS; 2022-06-17)
PROC: 0QB20ZZ Excision of Right Pelvic Bone, Open Approach (ICD-10-PCS; 2022-06-23)
DX: A41.9 Sepsis, unspecified organism (principal); E43 Unspecified severe protein-calorie malnutrition; I21.A1 Myocardial infarction type 2; J18.9 Pneumonia, unspecified organism; N17.0 Acute kidney failure with tubular necrosis; R53.2 Functional quadriplegia; R65.21 Severe sepsis with septic shock; J96.01 Acute respiratory failure with hypoxia; L89.153 Pressure ulcer of sacral region, stage 3; L89.314 Pressure ulcer of right buttock, stage 4; N39.0 Urinary tract infection, site not specified; D61.818 Other pancytopenia; D68.69 Other thrombophilia; E87.20 Acidosis, unspecified; J81.1 Chronic pulmonary edema; Z99.11 Dependence on respirator [ventilator] status; K94.22 Gastrostomy infection; L03.311 Cellulitis of abdominal wall; G93.40 Encephalopathy, unspecified; E87.0 Hyperosmolality and hypernatremia; K56.7 Ileus, unspecified; G40.909 Epilepsy, unspecified, not intractable, without status epilepticus; B96.4 Proteus (mirabilis) (morganii) as the cause of diseases classified elsewhere; Z74.09 Other reduced mobility; E83.39 Other disorders of phosphorus metabolism; E83.42 Hypomagnesemia; E88.09 Other disorders of plasma-protein metabolism, not elsewhere classified; G93.89 Other specified disorders of brain; K21.9 Gastro-esophageal reflux disease without esophagitis; M24.572 Contracture, left ankle; M24.571 Contracture, right ankle; R13.10 Dysphagia, unspecified; Z74.01 Bed confinement status; Z86.61 Personal history of infections of the central nervous system; Z86.718 Personal history of other venous thrombosis and embolism; Z87.442 Personal history of urinary calculi; Z79.4 Long term (current) use of insulin; Z93.0 Tracheostomy status; Z95.828 Presence of other vascular implants and grafts; Z98.1 Arthrodesis status; Z98.2 Presence of cerebrospinal fluid drainage device; Z87.820 Personal history of traumatic brain injury; K59.00 Constipation, unspecified; Z22.322 Carrier or suspected carrier of Methicillin resistant Staphylococcus aureus; R73.9 Hyperglycemia, unspecified; D69.6 Thrombocytopenia, unspecified; L89.896 Pressure-induced deep tissue damage of other site; L89.526 Pressure-induced deep tissue damage of left ankle; L89.516 Pressure-induced deep tissue damage of right ankle; L89.156 Pressure-induced deep tissue damage of sacral region; L89.316 Pressure-induced deep tissue damage of right buttock; L89.326 Pressure-induced deep tissue damage of left buttock; R74.01 Elevation of levels of liver transaminase levels; Z68.28 Body mass index [BMI] 28.0-28.9, adult; Y83.8 Other surgical procedures as the cause of abnormal reaction of the patient, or of later complication, without mention of misadventure at the time of the procedure; Y73.8 Miscellaneous gastroenterology and urology devices associated with adverse incidents, not elsewhere classified; Y92.129 Unspecified place in nursing home as the place of occurrence of the external cause; L98.9 Disorder of the skin and subcutaneous tissue, unspecified; E87.6 Hypokalemia; I10 Essential (primary) hypertension; I25.2 Old myocardial infarction; K80.20 Calculus of gallbladder without cholecystitis without obstruction; N20.0 Calculus of kidney; M89.8X9 Other specified disorders of bone, unspecified site; B96.5 Pseudomonas (aeruginosa) (mallei) (pseudomallei) as the cause of diseases classified elsewhere
CPT/HCPCS: 36415; 36569; 36600; 51702; 70030-TC; 70450; 71045; 71250; 74018; 74181; 76770; 83550; 83605; 83735; 84100; 84443; 84478; 84484; 84703; 85025; 85610; 85651; 85730; 86140; 87040; 87070; 87077; 87086; 87400; 93005; 94003; 94760; 99082-TC; A4649; A4663; A6209; A6213; C1713; C1758; C9113; G0378; J0690; J1100; J1170; J1580; J1644; J1650; J1815; J1940; J1953; J1956; J2185; J2248; J2270; J2370; J2405; J2543; J2560; J2765; J3010; J3370; J3475; J3480; J3490; J7040; J7050; J7060; J7070; J7131; J8597; Q9963